=== PATIENT | male | born 1945 | race Caucasian/White ===

== ENCOUNTER 2016-05-31 13:00 | Inpatient (IN) | payer BC, MEDICARE ==
[~2016-05-31] VITALS: Ht 177.8 cm; Wt 75.5 kg
[~2016-05-31 13:00] MED LIST: ACET-1757 PO; AMLO10TA2 PO; ASPI-188 PO; ATOR10TA PO; CALC200T20 PO; DIPH25CA61 PO; FURO40TA6 PO; GLIP5TAB10 PO; INSU100I28 SQ-INSULIN; INSU100V8 SQ; LIDO5CRE14 TP; MYCO500T PO; MYCO500V PO; PANT40TA3 PO; PRED5TAB PO; ROSI4TAB3 PO; TACR0.5C4 PO; VALS1TAB7 PO; VALS320T2 PO
[2016-05-31 15:56] LABS: HEMOGLOBIN 10.1 g/dL (13.7-18.0)
[2016-05-31 16:08] LABS: ASPARTATE AMINO TRANSFERASE 9 U/L (15-37); BLOOD UREA NITROGEN 63 mg/dL (7-18)
[2016-05-31] MEDS: DIPHENHYDRAMINE 50 MG CAPSULE PO PRN (16:52)
[2016-05-31] MEDS ORDERED: CALCIUM GLUCONATE 4.6 MEQ in SODIUM CHLORIDE 0.9% 50 ML IV ONE (17:00)
[2016-05-31] MEDS ORDERED: LIDOCAINE/PRILOCAINE CRM W/TEG 5GM TP SCH (17:00)
[2016-05-31] MEDS ORDERED: CALCIUM GLUCONATE 4.6 MEQ/10 ML IV ONE (17:00)
[2016-05-31] MEDS ORDERED: ACETAMINOPHEN 650 MG SUPP PR PRN (17:00)
[2016-05-31] MEDS ORDERED: ACETAMINOPHEN 325 MG TABLET PO PRN (17:00)
[2016-05-31] MEDS ORDERED: DIPHENHYDRAMINE 50 MG CAPSULE PO PRN (17:00)
[2016-05-31] MEDS ORDERED: ALBUMIN HUMAN 5% IV ONE (17:00)
[2016-05-31] MEDS: SODIUM CHLORIDE FLUSH 10ML SYR IVF SCH (20:52)
[2016-05-31] MEDS: ATORVASTATIN 10 MG TABLET PO SCH (20:53)
[2016-05-31] MEDS: TACROLIMUS 0.5 MG CAPSULE PO SCH (20:53)
[2016-05-31] MEDS: PANTOPROZOLE 40MG TABLET PO SCH (20:53)
[2016-05-31 21:13] VITALS: BP 138/75
[2016-05-31] MEDS: INSULIN REGULAR 100 UNITS/ML, 3ML VIAL SQ-INSULIN SCH (23:34)
[2016-06-01 03:27] VITALS: BP 129/76
[2016-06-01] MEDS: ASPIRIN 81 MG TABLET EC PO SCH (05:24)
[2016-06-01 07:11] VITALS: BP 111/60
[2016-06-01] MEDS ORDERED: CALCIUM GLUCONATE 4.6 MEQ/10 ML IV ONE (08:00)
[2016-06-01] MEDS ORDERED: ALBUMIN HUMAN 5% IV ONE (08:00)
[2016-06-01] MEDS: TACROLIMUS 0.5 MG CAPSULE PO SCH ×2 (08:09→20:21)
[2016-06-01] MEDS: CALCIUM CITRATE 950 MG TABLET PO SCH (08:10)
[2016-06-01] MEDS: VALSARTAN 320 MG TABLET PO SCH (08:11)
[2016-06-01] MEDS: FUROSEMIDE 40 MG TABLET PO SCH (08:11)
[2016-06-01] MEDS: PANTOPROZOLE 40MG TABLET PO SCH ×2 (08:12→20:21)
[2016-06-01] MEDS: AMLODIPINE 5 MG TABLET PO SCH (08:12)
[2016-06-01] MEDS: SODIUM CHLORIDE FLUSH 10ML SYR IVF SCH ×2 (08:17→20:21)
[2016-06-01] MEDS: AVANDIA HOMEMEDPO SCH (08:17)
[2016-06-01] MEDS: INSULIN REGULAR 100 UNITS/ML, 3ML VIAL SQ-INSULIN SCH ×4 (08:50→20:34)
[2016-06-01 09:14] LABS: HEMOGLOBIN 10.3 g/dL (13.7-18.0)
[2016-06-01] MEDS: DIPHENHYDRAMINE 50 MG CAPSULE PO PRN (09:21)
[2016-06-01 09:33] LABS: PATH.CAST-FLAG NOT PRESENT; SPERM-FLAG NOT PRESENT; SRC-FLAG NOT PRESENT; XTAL-FLAG NOT PRESENT; YLC-FLAG NOT PRESENT
[2016-06-01] MEDS: INSULIN DETEMIR 100 UNITS/ML, PEN SQ-INSULIN SCH (10:13)
[2016-06-01 10:22] LABS: BLOOD UREA NITROGEN 58 mg/dL (7-18)
[2016-06-01 10:29] LABS: ASPARTATE AMINO TRANSFERASE < 3 U/L (15-37)
[2016-06-01 13:16] VITALS: BP 121/69
[2016-06-01 19:44] VITALS: BP 133/72
[2016-06-01] MEDS: ATORVASTATIN 10 MG TABLET PO SCH (20:21)
[2016-06-02 02:59] VITALS: BP 144/75
[2016-06-02] MEDS: ASPIRIN 81 MG TABLET EC PO SCH (06:06)
[2016-06-02] MEDS: INSULIN REGULAR 100 UNITS/ML, 3ML VIAL SQ-INSULIN SCH ×2 (07:00→11:00)
[2016-06-02 07:40] VITALS: BP 136/79
[2016-06-02] MEDS: TACROLIMUS 0.5 MG CAPSULE PO SCH (08:56)
[2016-06-02] MEDS: PANTOPROZOLE 40MG TABLET PO SCH (08:56)
[2016-06-02] MEDS: CALCIUM CITRATE 950 MG TABLET PO SCH (08:56)
[2016-06-02] MEDS: INSULIN DETEMIR 100 UNITS/ML, PEN SQ-INSULIN SCH (08:57)
[2016-06-02] MEDS: AVANDIA HOMEMEDPO SCH (08:57)
[2016-06-02] MEDS: SODIUM CHLORIDE FLUSH 10ML SYR IVF SCH (08:57)
[2016-06-02] MEDS: AMLODIPINE 5 MG TABLET PO SCH (09:00)
[2016-06-02 09:49] LABS: ASPARTATE AMINO TRANSFERASE 4 U/L (15-37); BLOOD UREA NITROGEN 48 mg/dL (7-18)
[2016-06-02] MEDS: DIPHENHYDRAMINE 50 MG CAPSULE PO PRN (10:21)
[2016-06-02] MEDS ORDERED: ALBUMIN HUMAN 5%, 25G/500ML IV SCH (12:00)
[2016-06-02] MEDS ORDERED: CALCIUM GLUCONATE 4.6 MEQ/10 ML IV SCH (12:00)
[2016-06-02] MEDS: FUROSEMIDE 40 MG TABLET PO SCH (14:40)
[2016-06-02] MEDS: VALSARTAN 320 MG TABLET PO SCH (14:40)
[2016-06-02 14:42] VITALS: BP 150/63
[2016-06-02 15:08] VITALS: BP 130/78
[2016-06-02 16:34] LABS: PATH.CAST-FLAG NOT PRESENT; SPERM-FLAG NOT PRESENT; SRC-FLAG NOT PRESENT; XTAL-FLAG NOT PRESENT; YLC-FLAG NOT PRESENT
== END 2016-06-02 16:17 | disposition home or self-care (01) | DRG 699 ==
LOC: 4EST 14:35 → 4WST 06-01 22:31
PROVIDERS: ADMIT Internal Medicine Nephrology; ATTEND Internal Medicine Nephrology
PROC: 6A551Z3 Pheresis of Plasma, Multiple (ICD-10-PCS; principal; 2016-05-31)
PROC: 0T9B70Z Drainage of Bladder with Drainage Device, Via Natural or Artificial Opening (ICD-10-PCS; 2016-06-01)
DX: T86.19 Other complication of kidney transplant (principal); N25.81 Secondary hyperparathyroidism of renal origin; N04.9 Nephrotic syndrome with unspecified morphologic changes; D50.9 Iron deficiency anemia, unspecified; D63.1 Anemia in chronic kidney disease; E11.22 Type 2 diabetes mellitus with diabetic chronic kidney disease; K21.9 Gastro-esophageal reflux disease without esophagitis; N18.9 Chronic kidney disease, unspecified; N26.9 Renal sclerosis, unspecified; Z94.0 Kidney transplant status; Z79.899 Other long term (current) drug therapy; Z79.84 Long term (current) use of oral hypoglycemic drugs; Z79.4 Long term (current) use of insulin; Z87.19 Personal history of other diseases of the digestive system
CPT/HCPCS: 36415; 36514; 80053; 81001; 82330; 82570; 82728; 82947; 82962; 83540; 83550; 83735; 84100; 84156; 85025; J1815; J7507; P9045; J0610; J7512; J7517

== ENCOUNTER 2016-06-29 08:00 | Inpatient (IN) | payer BC, MEDICARE ==
[~2016-06-29] VITALS: Ht 177.8 cm; Wt 70.7 kg
[2016-06-29 15:08] VITALS: BP 125/70
[2016-06-29] MEDS ORDERED: ACETAMINOPHEN 650 MG SUPP PR PRN (16:00)
[2016-06-29] MEDS ORDERED: LIDOCAINE/PRILOCAINE CRM W/TEG 5GM TP SCH (16:00)
[2016-06-29] MEDS ORDERED: ACETAMINOPHEN 325 MG TABLET PO PRN (16:00)
[2016-06-29 16:16] LABS: ASPARTATE AMINO TRANSFERASE 12 U/L (15-37); BLOOD UREA NITROGEN 75 mg/dL (7-18)
[2016-06-29] MEDS ORDERED: ALBUMIN HUMAN 5% 500 ML IV ONE (16:30)
[2016-06-29] MEDS ORDERED: CALCIUM GLUCONATE 4.6 MEQ/10 ML IV ONE (17:00)
[2016-06-29] MEDS ORDERED: ALBUMIN HUMAN 5% IV ONE (17:00)
[2016-06-29] MEDS: DIPHENHYDRAMINE 50 MG CAPSULE PO PRN (17:26)
[2016-06-29] MEDS: INSULIN REGULAR 100 UNITS/ML, 3ML VIAL SQ-INSULIN SCH (17:37)
[2016-06-29 18:51] LABS: PATH.CAST-FLAG NOT PRESENT; SPERM-FLAG NOT PRESENT; SRC-FLAG NOT PRESENT; XTAL-FLAG NOT PRESENT; YLC-FLAG NOT PRESENT
[2016-06-29] MEDS ORDERED: SODIUM POLYSTYRENE SULFONATE ORAL SUSP PO STA (19:23)
[2016-06-29 20:15] VITALS: BP 147/79
[2016-06-29] MEDS: PANTOPROZOLE 40MG TABLET PO SCH (21:58)
[2016-06-29] MEDS: TACROLIMUS 0.5 MG CAPSULE PO SCH (21:58)
[2016-06-29] MEDS: ATORVASTATIN 10 MG TABLET PO SCH (21:58)
[2016-06-29] MEDS: FUROSEMIDE 40 MG TABLET PO SCH (21:59)
[2016-06-30 00:16] VITALS: BP 130/74
[2016-06-30] MEDS: INSULIN REGULAR 100 UNITS/ML, 3ML VIAL SQ-INSULIN SCH ×5 (01:36→20:58)
[2016-06-30] MEDS: ASPIRIN 81 MG TABLET EC PO SCH (05:16)
[2016-06-30 07:12] VITALS: BP 135/81
[2016-06-30] MEDS: CALCIUM CITRATE 950 MG TABLET PO SCH (08:43)
[2016-06-30] MEDS: FUROSEMIDE 40 MG TABLET PO SCH ×2 (08:43→17:19)
[2016-06-30] MEDS: AVANDIA HOMEMEDPO SCH (08:43)
[2016-06-30] MEDS: PANTOPROZOLE 40MG TABLET PO SCH ×2 (08:44→20:57)
[2016-06-30] MEDS: VALSARTAN 320 MG TABLET PO SCH (08:44)
[2016-06-30] MEDS: TACROLIMUS 0.5 MG CAPSULE PO SCH ×2 (08:44→20:57)
[2016-06-30] MEDS: AMLODIPINE 5 MG TABLET PO SCH (08:44)
[2016-06-30] MEDS: INSULIN DETEMIR 100 UNITS/ML, PEN SQ-INSULIN SCH (08:45)
[2016-06-30] MEDS ORDERED: INSULIN DETEMIR 100 UNITS/ML, PEN SQ-INSULIN SCH (09:00)
[2016-06-30] MEDS ORDERED: ALBUMIN HUMAN 5% IV ONE (09:30)
[2016-06-30] MEDS ORDERED: CALCIUM GLUCONATE 4.6 MEQ/10 ML IV ONE (09:30)
[2016-06-30] MEDS: DIPHENHYDRAMINE 50 MG CAPSULE PO PRN (09:52)
[2016-06-30 10:23] LABS: ASPARTATE AMINO TRANSFERASE 13 U/L (15-37); BLOOD UREA NITROGEN 62 mg/dL (7-18)
[2016-06-30 14:42] VITALS: BP 115/66
[2016-06-30 19:56] VITALS: BP 128/75
[2016-06-30] MEDS: ATORVASTATIN 10 MG TABLET PO SCH (20:56)
[2016-07-01 02:34] VITALS: BP 110/64
[2016-07-01 05:33] LABS: BLOOD UREA NITROGEN 57 mg/dL (7-18)
[2016-07-01 05:38] LABS: ASPARTATE AMINO TRANSFERASE 5 U/L (15-37)
[2016-07-01] MEDS: INSULIN REGULAR 100 UNITS/ML, 3ML VIAL SQ-INSULIN SCH ×2 (07:00→12:27)
[2016-07-01] MEDS: DIPHENHYDRAMINE 50 MG CAPSULE PO PRN (07:58)
[2016-07-01] MEDS: FUROSEMIDE 40 MG TABLET PO SCH (08:01)
[2016-07-01] MEDS: ASPIRIN 81 MG TABLET EC PO SCH (08:01)
[2016-07-01] MEDS: AVANDIA HOMEMEDPO SCH (08:01)
[2016-07-01] MEDS: PANTOPROZOLE 40MG TABLET PO SCH (08:01)
[2016-07-01] MEDS: VALSARTAN 320 MG TABLET PO SCH (08:02)
[2016-07-01] MEDS: AMLODIPINE 5 MG TABLET PO SCH (08:02)
[2016-07-01] MEDS: CALCIUM CITRATE 950 MG TABLET PO SCH (08:03)
[2016-07-01] MEDS: TACROLIMUS 0.5 MG CAPSULE PO SCH (08:03)
[2016-07-01 08:52] LABS: PATH.CAST-FLAG NOT PRESENT; SPERM-FLAG NOT PRESENT; SRC-FLAG NOT PRESENT; XTAL-FLAG NOT PRESENT; YLC-FLAG NOT PRESENT
[2016-07-01] MEDS: INSULIN DETEMIR 100 UNITS/ML, PEN SQ-INSULIN SCH (12:27)
== END 2016-07-01 13:52 | disposition home or self-care (01) | DRG 699 ==
LOC: 4EST 14:18
PROVIDERS: ADMIT Internal Medicine Nephrology; ATTEND Internal Medicine Nephrology
PROC: 6A551Z3 Pheresis of Plasma, Multiple (ICD-10-PCS; principal; 2016-06-29)
DX: T86.19 Other complication of kidney transplant (principal); N25.81 Secondary hyperparathyroidism of renal origin; E46 Unspecified protein-calorie malnutrition; N04.9 Nephrotic syndrome with unspecified morphologic changes; N18.3 Chronic kidney disease, stage 3 (moderate); N26.9 Renal sclerosis, unspecified; K21.9 Gastro-esophageal reflux disease without esophagitis; D63.1 Anemia in chronic kidney disease; E11.22 Type 2 diabetes mellitus with diabetic chronic kidney disease; T45.1X5A Adverse effect of antineoplastic and immunosuppressive drugs, initial encounter; Y83.0 Surgical operation with transplant of whole organ as the cause of abnormal reaction of the patient, or of later complication, without mention of misadventure at the time of the procedure; Z79.84 Long term (current) use of oral hypoglycemic drugs; Z94.0 Kidney transplant status; Z86.73 Personal history of transient ischemic attack (TIA), and cerebral infarction without residual deficits; Z79.4 Long term (current) use of insulin; Z83.3 Family history of diabetes mellitus; Z87.19 Personal history of other diseases of the digestive system; Z68.22 Body mass index [BMI] 22.0-22.9, adult; Z79.899 Other long term (current) drug therapy; Z90.49 Acquired absence of other specified parts of digestive tract
CPT/HCPCS: 36415; 36514; 80053; 81001; 82330; 82570; 82947; 82962; 83735; 84100; 84132; 84156; 85025; J1815; J7507; P9045; J0610; J7512; J7517

== ENCOUNTER 2016-09-05 11:15 | Inpatient (IN) | payer BC, MEDICARE ==
[~2016-09-05] VITALS: Ht 177.8 cm; Wt 65.7 kg
[2016-09-05 13:27] VITALS: BP 126/81
[2016-09-05 13:53] LABS: ASPARTATE AMINO TRANSFERASE 10 U/L (15-37); BLOOD UREA NITROGEN 84 mg/dL (7-18)
[2016-09-05 14:00] VITALS: BP 126/81
[2016-09-05] MEDS ORDERED: ACETAMINOPHEN 325 MG TABLET PO PRN (14:00)
[2016-09-05] MEDS ORDERED: LIDOCAINE/PRILOCAINE CRM W/TEG 5GM TP SCH (14:00)
[2016-09-05] MEDS ORDERED: ALBUMIN HUMAN 5% 2,500 ML IV ONE (14:00)
[2016-09-05] MEDS ORDERED: ACETAMINOPHEN 650 MG SUPP PR PRN (14:00)
[2016-09-05] MEDS: DIPHENHYDRAMINE 50 MG CAPSULE PO PRN (14:53)
[2016-09-05] MEDS: CALCIUM GLUCONATE 4.6 MEQ/10 ML IV PRN (15:54)
[2016-09-05] MEDS ORDERED: ALBUMIN HUMAN 5% IV ONE (20:30)
[2016-09-05 21:09] VITALS: BP 122/72
[2016-09-05] MEDS: TACROLIMUS 0.5 MG CAPSULE PO SCH (21:14)
[2016-09-05] MEDS: PANTOPROZOLE 40MG TABLET PO SCH (21:14)
[2016-09-05] MEDS: ATORVASTATIN 10 MG TABLET PO SCH (21:14)
[2016-09-05] MEDS: SODIUM CHLORIDE FLUSH 10ML SYR IVF SCH (21:14)
[2016-09-06 00:40] LABS: PATH.CAST-FLAG NOT PRESENT; SPERM-FLAG NOT PRESENT; SRC-FLAG NOT PRESENT; XTAL-FLAG NOT PRESENT; YLC-FLAG NOT PRESENT
[2016-09-06 03:44] VITALS: BP 154/83
[2016-09-06] MEDS: ASPIRIN 81 MG TABLET EC PO SCH (06:16)
[2016-09-06 06:35] VITALS: BP 154/78
[2016-09-06] MEDS: TACROLIMUS 0.5 MG CAPSULE PO SCH ×2 (08:29→21:07)
[2016-09-06] MEDS: AMLODIPINE 5 MG TABLET PO SCH (08:29)
[2016-09-06] MEDS: CALCIUM CITRATE 950 MG TABLET PO SCH (08:29)
[2016-09-06] MEDS: VALSARTAN 320 MG TABLET PO SCH (08:29)
[2016-09-06] MEDS: AVANDIA HOMEMEDPO SCH (08:30)
[2016-09-06] MEDS: SODIUM CHLORIDE FLUSH 10ML SYR IVF SCH (08:30)
[2016-09-06] MEDS: PANTOPROZOLE 40MG TABLET PO SCH ×2 (08:30→21:07)
[2016-09-06] MEDS ORDERED: INSULIN DETEMIR 100 UNITS/ML, PEN SQ-INSULIN SCH (09:00)
[2016-09-06] MEDS ORDERED: INSULIN ASPART 100 UNITS/ML, PEN SQ-INSULIN ONE (09:00)
[2016-09-06 09:12] LABS: ASPARTATE AMINO TRANSFERASE 5 U/L (15-37); BLOOD UREA NITROGEN 68 mg/dL (7-18)
[2016-09-06] MEDS ORDERED: ALBUMIN HUMAN 5% IV ONE ×2 (09:30→15:30)
[2016-09-06] MEDS: CALCIUM GLUCONATE 4.6 MEQ/10 ML IV PRN ×2 (10:00→15:05)
[2016-09-06] MEDS: INSULIN ASPART 100 UNITS/ML, PEN SQ-INSULIN SCH ×3 (12:18→21:08)
[2016-09-06 12:45] LABS: PATH.CAST-FLAG NOT PRESENT; SPERM-FLAG NOT PRESENT; SRC-FLAG NOT PRESENT; XTAL-FLAG NOT PRESENT; YLC-FLAG NOT PRESENT
[2016-09-06 15:51] VITALS: BP 131/70
[2016-09-06 20:33] VITALS: BP 146/79
[2016-09-06] MEDS: ATORVASTATIN 10 MG TABLET PO SCH (21:07)
[2016-09-07 02:25] VITALS: BP 113/70
[2016-09-07] MEDS: ASPIRIN 81 MG TABLET EC PO SCH (06:31)
[2016-09-07 06:59] VITALS: BP 122/57
[2016-09-07] MEDS: INSULIN ASPART 100 UNITS/ML, PEN SQ-INSULIN SCH ×2 (07:00→12:15)
[2016-09-07 07:15] VITALS: BP 125/76
[2016-09-07 08:15] LABS: ASPARTATE AMINO TRANSFERASE 5 U/L (15-37); BLOOD UREA NITROGEN 57 mg/dL (7-18)
[2016-09-07] MEDS: TACROLIMUS 0.5 MG CAPSULE PO SCH (08:41)
[2016-09-07] MEDS: PANTOPROZOLE 40MG TABLET PO SCH (08:41)
[2016-09-07] MEDS: DIPHENHYDRAMINE 50 MG CAPSULE PO PRN (08:41)
[2016-09-07] MEDS: AVANDIA HOMEMEDPO SCH (08:42)
[2016-09-07] MEDS: AMLODIPINE 5 MG TABLET PO SCH (08:42)
[2016-09-07] MEDS: CALCIUM CITRATE 950 MG TABLET PO SCH (08:42)
[2016-09-07] MEDS: VALSARTAN 320 MG TABLET PO SCH (08:42)
[2016-09-07] MEDS ORDERED: INSULIN DETEMIR 100 UNITS/ML, PEN SQ-INSULIN SCH (09:00)
[2016-09-07] MEDS ORDERED: ALBUMIN HUMAN 5%, 25G/500ML IV ONE (09:30)
[2016-09-07] MEDS ORDERED: CALCIUM GLUCONATE 4.6 MEQ/10 ML IV ONE (09:30)
== END 2016-09-07 14:12 | disposition home or self-care (01) | DRG 698 ==
LOC: 4WST 12:15
PROVIDERS: ADMIT Internal Medicine Nephrology; ATTEND Internal Medicine Nephrology
PROC: 6A551Z3 Pheresis of Plasma, Multiple (ICD-10-PCS; principal; 2016-09-05)
DX: T86.19 Other complication of kidney transplant (principal); N18.6 End stage renal disease; I12.0 Hypertensive chronic kidney disease with stage 5 chronic kidney disease or end stage renal disease; I25.10 Atherosclerotic heart disease of native coronary artery without angina pectoris; E78.5 Hyperlipidemia, unspecified; K21.9 Gastro-esophageal reflux disease without esophagitis; D63.1 Anemia in chronic kidney disease; E11.22 Type 2 diabetes mellitus with diabetic chronic kidney disease; E11.65 Type 2 diabetes mellitus with hyperglycemia; Z99.2 Dependence on renal dialysis; Z98.61 Coronary angioplasty status; Z79.82 Long term (current) use of aspirin; Z79.84 Long term (current) use of oral hypoglycemic drugs; Z79.4 Long term (current) use of insulin; Z79.899 Other long term (current) drug therapy; Z82.49 Family history of ischemic heart disease and other diseases of the circulatory system; Z83.3 Family history of diabetes mellitus; Z94.0 Kidney transplant status; Z86.73 Personal history of transient ischemic attack (TIA), and cerebral infarction without residual deficits
CPT/HCPCS: 36415; 36514; 80053; 81001; 82330; 82570; 82962; 83735; 84100; 84156; 85025; J7507; P9045; J0610; J1815; J7512; J7517

== ENCOUNTER 2016-10-03 08:00 | Inpatient (IN) | payer BC, MEDICARE ==
[~2016-10-03] VITALS: Ht 177.8 cm; Wt 66.5 kg
[2016-10-03 14:07] VITALS: BP 125/66
[2016-10-03 14:07] LABS: HEMATOCRIT 31.6 % (39.2-51.8); HEMOGLOBIN 10.4 g/dL (13.7-18.0); WHITE BLOOD COUNT 5.2 x10^3/uL (3.4-10)
[2016-10-03 14:18] LABS: ASPARTATE AMINO TRANSFERASE 8 U/L (15-37); BLOOD UREA NITROGEN 95 mg/dL (7-18)
[2016-10-03] MEDS ORDERED: LIDOCAINE/PRILOCAINE CRM W/TEG 5GM TP SCH (15:00)
[2016-10-03] MEDS ORDERED: ACETAMINOPHEN 650 MG SUPP PR PRN (15:00)
[2016-10-03] MEDS ORDERED: ACETAMINOPHEN 325 MG TABLET PO PRN (15:00)
[2016-10-03] MEDS: INSULIN REGULAR 100 UNITS/ML, 3ML VIAL SQ-INSULIN SCH ×2 (15:26→21:30)
[2016-10-03 15:59] LABS: PATH.CAST-FLAG NOT PRESENT; SPERM-FLAG NOT PRESENT; SRC-FLAG NOT PRESENT; XTAL-FLAG NOT PRESENT; YLC-FLAG NOT PRESENT
[2016-10-03] MEDS: DIPHENHYDRAMINE 50 MG CAPSULE PO PRN (17:16)
[2016-10-03] MEDS: ALBUMIN HUMAN 5%, 25G/500ML IV SCH (19:15)
[2016-10-03] MEDS: CALCIUM GLUCONATE 4.6 MEQ/10 ML IV SCH (19:15)
[2016-10-03 20:00] VITALS: BP 139/74
[2016-10-03] MEDS: SODIUM CHLORIDE FLUSH 10ML SYR IVF SCH (21:00)
[2016-10-03] MEDS: ATORVASTATIN 10 MG TABLET PO SCH (21:30)
[2016-10-03] MEDS: PANTOPROZOLE 40MG TABLET PO SCH (21:30)
[2016-10-03] MEDS: TACROLIMUS 0.5 MG CAPSULE PO SCH (21:30)
[2016-10-04] MEDS: ASPIRIN 81 MG TABLET EC PO SCH (05:46)
[2016-10-04 07:47] LABS: HEMATOCRIT 32.3 % (39.2-51.8); HEMOGLOBIN 10.8 g/dL (13.7-18.0); WHITE BLOOD COUNT 5.3 x10^3/uL (3.4-10)
[2016-10-04 07:58] LABS: BLOOD UREA NITROGEN 78 mg/dL (7-18)
[2016-10-04 08:01] LABS: ASPARTATE AMINO TRANSFERASE 5 U/L (15-37)
[2016-10-04 08:22] VITALS: BP 160/79
[2016-10-04] MEDS: SODIUM CHLORIDE FLUSH 10ML SYR IVF SCH ×2 (09:00→21:00)
[2016-10-04] MEDS: AVANDIA HOMEMEDPO SCH (09:00)
[2016-10-04] MEDS: INSULIN DETEMIR 100 UNITS/ML, PEN SQ-INSULIN SCH (09:10)
[2016-10-04] MEDS: INSULIN REGULAR 100 UNITS/ML, 3ML VIAL SQ-INSULIN SCH ×4 (09:10→21:04)
[2016-10-04] MEDS: FUROSEMIDE 20 MG TABLET PO SCH (09:11)
[2016-10-04] MEDS: AMLODIPINE 5 MG TABLET PO SCH (09:11)
[2016-10-04] MEDS: TACROLIMUS 0.5 MG CAPSULE PO SCH ×2 (09:11→21:03)
[2016-10-04] MEDS: CALCIUM CITRATE 950 MG TABLET PO SCH (09:11)
[2016-10-04] MEDS: PANTOPROZOLE 40MG TABLET PO SCH ×2 (09:11→21:02)
[2016-10-04] MEDS: VALSARTAN 320 MG TABLET PO SCH (09:12)
[2016-10-04] MEDS: DIPHENHYDRAMINE 50 MG CAPSULE PO PRN (09:16)
[2016-10-04 09:53] LABS: PATH.CAST-FLAG NOT PRESENT; SPERM-FLAG NOT PRESENT; SRC-FLAG NOT PRESENT; XTAL-FLAG NOT PRESENT; YLC-FLAG NOT PRESENT
[2016-10-04] MEDS: ALBUMIN HUMAN 5%, 25G/500ML IV SCH (11:27)
[2016-10-04] MEDS: CALCIUM GLUCONATE 4.6 MEQ/10 ML IV SCH (11:28)
[2016-10-04 17:24] VITALS: BP 124/71
[2016-10-04 19:14] VITALS: BP 127/72
[2016-10-04] MEDS: ATORVASTATIN 10 MG TABLET PO SCH (21:02)
[2016-10-05] MEDS ORDERED: INSULIN REGULAR 100 UNITS/ML, 3ML VIAL SQ-INSULIN ONE (01:30)
[2016-10-05] MEDS: ASPIRIN 81 MG TABLET EC PO SCH (05:48)
[2016-10-05 06:27] LABS: BLOOD UREA NITROGEN 69 mg/dL (7-18); HEMOGLOBIN 11.5 g/dL (13.7-18.0); WHITE BLOOD COUNT 6.4 x10^3/uL (3.4-10)
[2016-10-05 06:29] LABS: ASPARTATE AMINO TRANSFERASE 5 U/L (15-37)
[2016-10-05 07:32] VITALS: BP 124/77
[2016-10-05] MEDS: AVANDIA HOMEMEDPO SCH (07:57)
[2016-10-05] MEDS: INSULIN DETEMIR 100 UNITS/ML, PEN SQ-INSULIN SCH (08:11)
[2016-10-05] MEDS: INSULIN REGULAR 100 UNITS/ML, 3ML VIAL SQ-INSULIN SCH ×2 (08:11→12:26)
[2016-10-05] MEDS: CALCIUM CITRATE 950 MG TABLET PO SCH (08:12)
[2016-10-05] MEDS: TACROLIMUS 0.5 MG CAPSULE PO SCH (08:12)
[2016-10-05] MEDS: SODIUM CHLORIDE FLUSH 10ML SYR IVF SCH (08:12)
[2016-10-05] MEDS: FUROSEMIDE 20 MG TABLET PO SCH (08:12)
[2016-10-05] MEDS: PANTOPROZOLE 40MG TABLET PO SCH (08:12)
[2016-10-05] MEDS: AMLODIPINE 5 MG TABLET PO SCH (08:12)
[2016-10-05] MEDS: VALSARTAN 320 MG TABLET PO SCH (08:12)
[2016-10-05] MEDS: DIPHENHYDRAMINE 50 MG CAPSULE PO PRN (08:50)
[2016-10-05 09:07] LABS: PATH.CAST-FLAG NOT PRESENT; SPERM-FLAG NOT PRESENT; SRC-FLAG NOT PRESENT; XTAL-FLAG NOT PRESENT; YLC-FLAG NOT PRESENT
[2016-10-05] MEDS: CALCIUM GLUCONATE 4.6 MEQ/10 ML IV SCH (09:32)
[2016-10-05] MEDS: ALBUMIN HUMAN 5%, 25G/500ML IV SCH (09:32)
[2016-10-05 14:42] VITALS: BP 122/72
== END 2016-10-05 15:30 | disposition home or self-care (01) | DRG 682 ==
LOC: 4WST 13:31
PROVIDERS: ADMIT Internal Medicine Nephrology; ATTEND Internal Medicine Nephrology
PROC: 5A1D60Z (ICD-10-PCS; principal; 2016-10-03)
DX: I12.0 Hypertensive chronic kidney disease with stage 5 chronic kidney disease or end stage renal disease (principal); N18.6 End stage renal disease; E11.22 Type 2 diabetes mellitus with diabetic chronic kidney disease; N25.81 Secondary hyperparathyroidism of renal origin; Z94.0 Kidney transplant status; D63.1 Anemia in chronic kidney disease; E78.5 Hyperlipidemia, unspecified; K21.9 Gastro-esophageal reflux disease without esophagitis; Z79.4 Long term (current) use of insulin; Z86.73 Personal history of transient ischemic attack (TIA), and cerebral infarction without residual deficits; Z87.19 Personal history of other diseases of the digestive system; Z87.441 Personal history of nephrotic syndrome; Z99.2 Dependence on renal dialysis; Z79.82 Long term (current) use of aspirin; Z79.899 Other long term (current) drug therapy; Z90.49 Acquired absence of other specified parts of digestive tract
CPT/HCPCS: 36415; 80053; 81001; 82330; 82570; 82962; 83735; 84100; 84156; 85025; J1815; J7507; P9045; J0610; J7512; J7517

== ENCOUNTER 2016-11-02 14:37 | Inpatient (IN) | payer BC, MEDICARE ==
[~2016-11-02] VITALS: Ht 177.8 cm; Wt 66.3 kg
[~2016-11-02 14:37] MED LIST changes: -ASPI-188 PO; +ASPI-682 PO
[2016-11-02 15:47] LABS: HEMATOCRIT 31.6 % (39.2-51.8); HEMOGLOBIN 10.4 g/dL (13.7-18.0); WHITE BLOOD COUNT 4.8 x10^3/uL (3.4-10)
[2016-11-02 15:58] LABS: ASPARTATE AMINO TRANSFERASE 11 U/L (15-37); BLOOD UREA NITROGEN 77 mg/dL (7-18)
[2016-11-02] MEDS: INSULIN REGULAR 100 UNITS/ML, 3ML VIAL SQ-INSULIN SCH ×2 (16:00→22:29)
[2016-11-02] MEDS ORDERED: ACETAMINOPHEN 325 MG TABLET PO PRN (16:00)
[2016-11-02] MEDS ORDERED: ACETAMINOPHEN 650 MG SUPP PR PRN (16:00)
[2016-11-02] MEDS ORDERED: LIDOCAINE/PRILOCAINE CRM W/TEG 5GM TP SCH (16:00)
[2016-11-02] MEDS ORDERED: ALBUMIN HUMAN 5% 2,500 ML IV ONE ×2 (16:00→17:30)
[2016-11-02] MEDS: PLEASE ENTER HEIGHT AND WEIGHT MC SCH ×2 (16:00→22:29)
[2016-11-02 16:20] VITALS: BP 152/77
[2016-11-02] MEDS: DIPHENHYDRAMINE 50 MG CAPSULE PO PRN ×2 (16:34→21:40)
[2016-11-02 20:49] VITALS: BP 150/74
[2016-11-02] MEDS: SODIUM CHLORIDE FLUSH 10ML SYR IVF SCH (20:49)
[2016-11-02] MEDS: PANTOPROZOLE 40MG TABLET PO SCH (21:40)
[2016-11-02] MEDS: TACROLIMUS 0.5 MG CAPSULE PO SCH (21:40)
[2016-11-02] MEDS: FUROSEMIDE 40 MG TABLET PO SCH (21:41)
[2016-11-02] MEDS: ATORVASTATIN 10 MG TABLET PO SCH (21:41)
[2016-11-03 03:22] VITALS: BP 148/77
[2016-11-03 06:35] VITALS: BP 137/68
[2016-11-03] MEDS: ASPIRIN 81 MG TABLET EC PO SCH (07:25)
[2016-11-03] MEDS: FUROSEMIDE 40 MG TABLET PO SCH ×2 (07:26→20:28)
[2016-11-03] MEDS: VALSARTAN 320 MG TABLET PO SCH (07:26)
[2016-11-03] MEDS: CALCIUM CITRATE 950 MG TABLET PO SCH (07:26)
[2016-11-03] MEDS: TACROLIMUS 0.5 MG CAPSULE PO SCH ×2 (07:27→20:32)
[2016-11-03] MEDS: AMLODIPINE 5 MG TABLET PO SCH (07:27)
[2016-11-03] MEDS: PANTOPROZOLE 40MG TABLET PO SCH ×2 (07:27→20:28)
[2016-11-03] MEDS: AVANDIA HOMEMEDPO SCH (07:29)
[2016-11-03] MEDS: PLEASE ENTER HEIGHT AND WEIGHT MC SCH (07:29)
[2016-11-03] MEDS: SODIUM CHLORIDE FLUSH 10ML SYR IVF SCH ×2 (07:30→20:32)
[2016-11-03] MEDS: INSULIN REGULAR 100 UNITS/ML, 3ML VIAL SQ-INSULIN SCH ×4 (08:26→20:29)
[2016-11-03 08:50] LABS: PATH.CAST-FLAG NOT PRESENT; SPERM-FLAG NOT PRESENT; SRC-FLAG NOT PRESENT; XTAL-FLAG NOT PRESENT; YLC-FLAG NOT PRESENT
[2016-11-03] MEDS ORDERED: INSULIN DETEMIR 100 UNITS/ML, PEN SQ-INSULIN SCH (09:00)
[2016-11-03 09:17] LABS: BLOOD UREA NITROGEN 63 mg/dL (7-18)
[2016-11-03 09:20] LABS: ASPARTATE AMINO TRANSFERASE 5 U/L (15-37)
[2016-11-03 09:24] LABS: HEMATOCRIT 35.3 % (39.2-51.8); HEMOGLOBIN 11.8 g/dL (13.7-18.0); WHITE BLOOD COUNT 4.6 x10^3/uL (3.4-10)
[2016-11-03] MEDS ORDERED: DIPHENHYDRAMINE 25 MG CAPSULE ONE (09:36)
[2016-11-03] MEDS: DIPHENHYDRAMINE 50 MG CAPSULE PO PRN (09:38)
[2016-11-03] MEDS: INSULIN DETEMIR 100 UNITS/ML, PEN SQ-INSULIN SCH (10:00)
[2016-11-03] MEDS: ALBUMIN HUMAN 5% IV SCH (10:31)
[2016-11-03] MEDS: CALCIUM GLUCONATE 4.6 MEQ/10 ML IV PRN (10:33)
[2016-11-03 14:22] VITALS: BP 120/69
[2016-11-03 19:33] VITALS: BP 138/75
[2016-11-03] MEDS: ATORVASTATIN 10 MG TABLET PO SCH (20:28)
[2016-11-04 00:07] VITALS: BP 116/76
[2016-11-04 02:30] VITALS: BP 108/67
[2016-11-04] MEDS: ASPIRIN 81 MG TABLET EC PO SCH (05:11)
[2016-11-04 05:52] LABS: ASPARTATE AMINO TRANSFERASE 7 U/L (15-37); BLOOD UREA NITROGEN 57 mg/dL (7-18); HEMATOCRIT 34.2 % (39.2-51.8); HEMOGLOBIN 11.3 g/dL (13.7-18.0); WHITE BLOOD COUNT 6.7 x10^3/uL (3.4-10)
[2016-11-04 08:00] VITALS: BP 118/76
[2016-11-04] MEDS: INSULIN DETEMIR 100 UNITS/ML, PEN SQ-INSULIN SCH (08:17)
[2016-11-04] MEDS: INSULIN REGULAR 100 UNITS/ML, 3ML VIAL SQ-INSULIN SCH ×2 (08:17→11:50)
[2016-11-04] MEDS: CALCIUM CITRATE 950 MG TABLET PO SCH (08:17)
[2016-11-04] MEDS: FUROSEMIDE 40 MG TABLET PO SCH (08:17)
[2016-11-04] MEDS: DIPHENHYDRAMINE 50 MG CAPSULE PO PRN (08:17)
[2016-11-04] MEDS: TACROLIMUS 0.5 MG CAPSULE PO SCH (08:17)
[2016-11-04] MEDS: PANTOPROZOLE 40MG TABLET PO SCH (08:17)
[2016-11-04] MEDS: AVANDIA HOMEMEDPO SCH (08:18)
[2016-11-04] MEDS: SODIUM CHLORIDE FLUSH 10ML SYR IVF SCH (08:18)
[2016-11-04] MEDS ORDERED: INSULIN DETEMIR 100 UNITS/ML, PEN SQ-INSULIN SCH (09:00)
[2016-11-04] MEDS: ALBUMIN HUMAN 5% IV SCH (09:23)
[2016-11-04] MEDS: CALCIUM GLUCONATE 4.6 MEQ/10 ML IV PRN (09:31)
[2016-11-04] MEDS: AMLODIPINE 5 MG TABLET PO SCH (11:50)
[2016-11-04] MEDS: VALSARTAN 320 MG TABLET PO SCH (11:50)
[2016-11-04 12:07] LABS: PATH.CAST-FLAG NOT PRESENT; SPERM-FLAG NOT PRESENT; SRC-FLAG NOT PRESENT; XTAL-FLAG NOT PRESENT; YLC-FLAG NOT PRESENT
[2016-11-07 13:06] LABS: UR ALBUMIN 92.9 % (.); UR ALPHA-1-GLOBULIN 0.4 % (.); UR ALPHA-2-GLOBULIN 0.7 % (.); UR BETA GLOBULIN 3.1 % (.); UR GAMMA GLOBULIN 2.9 % (.); UR M-SPIKE % Not Observed % (Not Observed)
== END 2016-11-04 14:27 | disposition home or self-care (01) | DRG 699 ==
LOC: 4WST 14:39
PROVIDERS: ADMIT Internal Medicine Nephrology; ATTEND Internal Medicine Nephrology
PROC: 5A1D60Z (ICD-10-PCS; principal; 2016-11-02)
DX: T86.19 Other complication of kidney transplant (principal); N25.81 Secondary hyperparathyroidism of renal origin; E11.22 Type 2 diabetes mellitus with diabetic chronic kidney disease; D63.1 Anemia in chronic kidney disease; K21.9 Gastro-esophageal reflux disease without esophagitis; I12.9 Hypertensive chronic kidney disease with stage 1 through stage 4 chronic kidney disease, or unspecified chronic kidney disease; N18.9 Chronic kidney disease, unspecified; E78.5 Hyperlipidemia, unspecified; Y83.0 Surgical operation with transplant of whole organ as the cause of abnormal reaction of the patient, or of later complication, without mention of misadventure at the time of the procedure; Z79.4 Long term (current) use of insulin; Z87.19 Personal history of other diseases of the digestive system; Z86.73 Personal history of transient ischemic attack (TIA), and cerebral infarction without residual deficits; Z87.441 Personal history of nephrotic syndrome; Z90.49 Acquired absence of other specified parts of digestive tract
CPT/HCPCS: 36415; 36514; 80053; 81001; 82330; 82570; 82962; 83735; 84100; 84156; 84166; 85025; J1815; J7507; P9045; J0610; J7512; J7517

== ENCOUNTER 2016-12-05 09:00 | Inpatient (IN) | payer BC, MEDICARE ==
[~2016-12-05] VITALS: Ht 177.8 cm; Wt 69.5 kg
[2016-12-05 14:12] LABS: HEMATOCRIT 32.4 % (39.2-51.8); HEMOGLOBIN 10.8 g/dL (13.7-18.0); WHITE BLOOD COUNT 6.8 x10^3/uL (3.4-10)
[2016-12-05 14:21] VITALS: BP 105/64
[2016-12-05 14:28] LABS: ASPARTATE AMINO TRANSFERASE 13 U/L (15-37); BLOOD UREA NITROGEN 51 mg/dL (7-18)
[2016-12-05] MEDS ORDERED: ACETAMINOPHEN 325 MG TABLET PO PRN (15:30)
[2016-12-05] MEDS ORDERED: ACETAMINOPHEN 650 MG SUPP PR PRN (15:30)
[2016-12-05] MEDS ORDERED: LIDOCAINE/PRILOCAINE CRM W/TEG 5GM TP SCH (15:30)
[2016-12-05] MEDS ORDERED: CALCIUM GLUCONATE 4.6 MEQ/10 ML IV ONE (16:00)
[2016-12-05] MEDS ORDERED: ALBUMIN HUMAN 5% IV ONE (16:00)
[2016-12-05] MEDS: INSULIN REGULAR 100 UNITS/ML, 3ML VIAL SQ-INSULIN SCH ×2 (17:13→22:17)
[2016-12-05] MEDS ORDERED: DIPHENHYDRAMINE 25 MG CAPSULE ONE (18:07)
[2016-12-05] MEDS: DIPHENHYDRAMINE 50 MG CAPSULE PO PRN (18:12)
[2016-12-05 20:40] VITALS: BP 118/74
[2016-12-05] MEDS: SODIUM CHLORIDE FLUSH 10ML SYR IVF SCH (21:00)
[2016-12-05] MEDS: PANTOPROZOLE 40MG TABLET PO SCH (22:07)
[2016-12-05] MEDS: ATORVASTATIN 10 MG TABLET PO SCH (22:07)
[2016-12-05] MEDS: TACROLIMUS 0.5 MG CAPSULE PO SCH (22:07)
[2016-12-05] MEDS: FUROSEMIDE 40 MG TABLET PO SCH (22:07)
[2016-12-06 00:54] LABS: PATH.CAST-FLAG NOT PRESENT; SPERM-FLAG NOT PRESENT; SRC-FLAG NOT PRESENT; XTAL-FLAG NOT PRESENT; YLC-FLAG NOT PRESENT
[2016-12-06 04:15] VITALS: BP 125/76
[2016-12-06] MEDS: ASPIRIN 81 MG TABLET EC PO SCH (05:48)
[2016-12-06 06:28] LABS: HEMATOCRIT 30.1 % (39.2-51.8); HEMOGLOBIN 9.9 g/dL (13.7-18.0)
[2016-12-06 06:34] LABS: BLOOD UREA NITROGEN 52 mg/dL (7-18)
[2016-12-06 06:38] LABS: ASPARTATE AMINO TRANSFERASE < 3 U/L (15-37)
[2016-12-06] MEDS: AVANDIA HOMEMEDPO SCH (07:37)
[2016-12-06] MEDS: CALCIUM CITRATE 950 MG TABLET PO SCH (07:37)
[2016-12-06] MEDS: INSULIN DETEMIR 100 UNITS/ML, PEN SQ-INSULIN SCH (07:37)
[2016-12-06] MEDS: SODIUM CHLORIDE FLUSH 10ML SYR IVF SCH ×2 (07:38→20:13)
[2016-12-06] MEDS: FUROSEMIDE 40 MG TABLET PO SCH ×2 (07:38→20:58)
[2016-12-06] MEDS: VALSARTAN 320 MG TABLET PO SCH (07:38)
[2016-12-06] MEDS: TACROLIMUS 0.5 MG CAPSULE PO SCH ×2 (07:38→20:58)
[2016-12-06] MEDS: PANTOPROZOLE 40MG TABLET PO SCH ×2 (07:38→20:58)
[2016-12-06] MEDS: AMLODIPINE 5 MG TABLET PO SCH (07:38)
[2016-12-06] MEDS: INSULIN REGULAR 100 UNITS/ML, 3ML VIAL SQ-INSULIN SCH ×4 (07:44→20:59)
[2016-12-06 07:45] VITALS: BP 136/75
[2016-12-06] MEDS ORDERED: ALBUMIN HUMAN 5% IV ONE (09:00)
[2016-12-06] MEDS ORDERED: CALCIUM GLUCONATE 4.6 MEQ/10 ML IV ONE (09:00)
[2016-12-06 09:40] LABS: PATH.CAST-FLAG NOT PRESENT; SPERM-FLAG NOT PRESENT; SRC-FLAG NOT PRESENT; XTAL-FLAG NOT PRESENT; YLC-FLAG NOT PRESENT
[2016-12-06 15:31] VITALS: BP 130/69
[2016-12-06 20:57] VITALS: BP 123/75
[2016-12-06] MEDS: ATORVASTATIN 10 MG TABLET PO SCH (20:58)
[2016-12-07 02:00] VITALS: BP 129/78
[2016-12-07] MEDS: ASPIRIN 81 MG TABLET EC PO SCH (06:25)
[2016-12-07 06:48] LABS: HEMATOCRIT 32.7 % (39.2-51.8); HEMOGLOBIN 10.8 g/dL (13.7-18.0); WHITE BLOOD COUNT 5.1 x10^3/uL (3.4-10)
[2016-12-07 06:52] LABS: BLOOD UREA NITROGEN 50 mg/dL (7-18)
[2016-12-07 06:55] LABS: ASPARTATE AMINO TRANSFERASE < 3 U/L (15-37)
[2016-12-07] MEDS: INSULIN REGULAR 100 UNITS/ML, 3ML VIAL SQ-INSULIN SCH ×2 (07:00→11:00)
[2016-12-07 08:14] VITALS: BP 133/76
[2016-12-07] MEDS: INSULIN DETEMIR 100 UNITS/ML, PEN SQ-INSULIN SCH (08:38)
[2016-12-07] MEDS: AMLODIPINE 5 MG TABLET PO SCH (08:39)
[2016-12-07] MEDS: PANTOPROZOLE 40MG TABLET PO SCH (08:39)
[2016-12-07] MEDS: CALCIUM CITRATE 950 MG TABLET PO SCH (08:39)
[2016-12-07] MEDS: VALSARTAN 320 MG TABLET PO SCH (08:39)
[2016-12-07] MEDS: FUROSEMIDE 40 MG TABLET PO SCH (08:39)
[2016-12-07] MEDS: TACROLIMUS 0.5 MG CAPSULE PO SCH (08:39)
[2016-12-07] MEDS: AVANDIA HOMEMEDPO SCH (08:40)
[2016-12-07] MEDS: SODIUM CHLORIDE FLUSH 10ML SYR IVF SCH (08:40)
[2016-12-07] MEDS: DIPHENHYDRAMINE 50 MG CAPSULE PO PRN (08:46)
[2016-12-07] MEDS ORDERED: CALCIUM GLUCONATE 4.6 MEQ/10 ML IV ONE (10:00)
[2016-12-07] MEDS ORDERED: ALBUMIN HUMAN 5% IV ONE (10:00)
== END 2016-12-07 15:37 | disposition home or self-care (01) | DRG 682 ==
LOC: 4EST 12:06 → 4WST 13:05
PROVIDERS: ADMIT Internal Medicine Nephrology; ATTEND Internal Medicine Nephrology
DX: I12.0 Hypertensive chronic kidney disease with stage 5 chronic kidney disease or end stage renal disease (principal); N18.6 End stage renal disease; E11.22 Type 2 diabetes mellitus with diabetic chronic kidney disease; Z94.0 Kidney transplant status; N25.81 Secondary hyperparathyroidism of renal origin; D63.1 Anemia in chronic kidney disease; E78.5 Hyperlipidemia, unspecified; K21.9 Gastro-esophageal reflux disease without esophagitis; Z79.4 Long term (current) use of insulin; Z86.73 Personal history of transient ischemic attack (TIA), and cerebral infarction without residual deficits; Z87.19 Personal history of other diseases of the digestive system; Z99.2 Dependence on renal dialysis
CPT/HCPCS: 36415; 36514; 80053; 81001; 82330; 82570; 82962; 83735; 84100; 84156; 85025; J1815; J7507; P9045; J0610; J7512; J7517

== ENCOUNTER 2017-01-03 08:00 | Inpatient (IN) | payer BC, MEDICARE ==
[~2017-01-03] VITALS: Ht 177.8 cm; Wt 70.6 kg
[2017-01-03] MEDS ORDERED: ALBUMIN HUMAN 5%, 25G/500ML IV SCH (13:00)
[2017-01-03 16:53] VITALS: BP 136/71
[2017-01-03] MEDS: PLEASE ENTER HEIGHT AND WEIGHT MC SCH ×2 (17:00→22:45)
[2017-01-03] MEDS ORDERED: LIDOCAINE/PRILOCAINE CRM W/TEG 5GM TP SCH (17:30)
[2017-01-03] MEDS ORDERED: ACETAMINOPHEN 325 MG TABLET PO PRN (17:30)
[2017-01-03] MEDS ORDERED: ACETAMINOPHEN 650 MG SUPP PR PRN (17:30)
[2017-01-03 17:34] LABS: HEMATOCRIT 29.5 % (39.2-51.8); HEMOGLOBIN 9.7 g/dL (13.7-18.0); WHITE BLOOD COUNT 4.7 x10^3/uL (3.4-10)
[2017-01-03] MEDS ORDERED: DIPHENHYDRAMINE 25 MG CAPSULE ONE (17:48)
[2017-01-03] MEDS: DIPHENHYDRAMINE 50 MG CAPSULE PO PRN (17:50)
[2017-01-03 17:58] LABS: BLOOD UREA NITROGEN 78 mg/dL (7-18)
[2017-01-03 17:59] LABS: ASPARTATE AMINO TRANSFERASE 10 U/L (15-37)
[2017-01-03] MEDS ORDERED: CALCIUM GLUCONATE 4.6 MEQ/10 ML IV SCH (18:00)
[2017-01-03] MEDS: TACROLIMUS 0.5 MG CAPSULE PO SCH (20:42)
[2017-01-03] MEDS: FUROSEMIDE 40 MG TABLET PO SCH (20:42)
[2017-01-03] MEDS: SODIUM CHLORIDE FLUSH 10ML SYR IVF SCH (20:43)
[2017-01-03] MEDS: ATORVASTATIN 10 MG TABLET PO SCH (20:43)
[2017-01-03] MEDS: PANTOPROZOLE 40MG TABLET PO SCH (20:43)
[2017-01-03 20:45] VITALS: BP 138/80
[2017-01-03] MEDS: INSULIN REGULAR 100 UNITS/ML, 3ML VIAL SQ-INSULIN SCH (21:27)
[2017-01-04 02:30] VITALS: BP 135/73
[2017-01-04 05:49] LABS: PATH.CAST-FLAG NOT PRESENT; SPERM-FLAG NOT PRESENT; SRC-FLAG NOT PRESENT; XTAL-FLAG NOT PRESENT; YLC-FLAG NOT PRESENT
[2017-01-04] MEDS: ASPIRIN 81 MG TABLET EC PO SCH (06:05)
[2017-01-04] MEDS: INSULIN REGULAR 100 UNITS/ML, 3ML VIAL SQ-INSULIN SCH ×4 (07:00→20:18)
[2017-01-04 07:31] VITALS: BP 149/80
[2017-01-04] MEDS: AMLODIPINE 5 MG TABLET PO SCH ×2 (08:18→20:17)
[2017-01-04] MEDS: FUROSEMIDE 40 MG TABLET PO SCH ×2 (08:18→20:17)
[2017-01-04] MEDS: VALSARTAN 320 MG TABLET PO SCH ×2 (08:18→08:50)
[2017-01-04] MEDS: CALCIUM CITRATE 950 MG TABLET PO SCH (08:18)
[2017-01-04] MEDS: PANTOPROZOLE 40MG TABLET PO SCH ×2 (08:19→20:17)
[2017-01-04] MEDS: TACROLIMUS 0.5 MG CAPSULE PO SCH ×2 (08:19→20:17)
[2017-01-04 08:56] LABS: PATH.CAST-FLAG NOT PRESENT; SPERM-FLAG NOT PRESENT; SRC-FLAG NOT PRESENT; XTAL-FLAG NOT PRESENT; YLC-FLAG NOT PRESENT
[2017-01-04] MEDS: SODIUM CHLORIDE FLUSH 10ML SYR IVF SCH ×2 (09:00→20:20)
[2017-01-04] MEDS: AVANDIA HOMEMEDPO SCH (09:00)
[2017-01-04] MEDS: PLEASE ENTER HEIGHT AND WEIGHT MC SCH (09:00)
[2017-01-04 09:41] LABS: HEMATOCRIT 33.3 % (39.2-51.8); HEMOGLOBIN 10.9 g/dL (13.7-18.0); WHITE BLOOD COUNT 4.2 x10^3/uL (3.4-10)
[2017-01-04 09:53] LABS: ASPARTATE AMINO TRANSFERASE 3 U/L (15-37); BLOOD UREA NITROGEN 71 mg/dL (7-18)
[2017-01-04] MEDS: DIPHENHYDRAMINE 50 MG CAPSULE PO PRN (11:42)
[2017-01-04] MEDS: INSULIN DETEMIR 100 UNITS/ML, PEN SQ-INSULIN SCH (11:50)
[2017-01-04] MEDS: CALCIUM GLUCONATE 4.6 MEQ/10 ML IV SCH (15:06)
[2017-01-04] MEDS: ALBUMIN HUMAN 5%, 25G/500ML IV SCH (15:06)
[2017-01-04 15:20] VITALS: BP 136/74
[2017-01-04 20:00] VITALS: BP 127/70
[2017-01-04] MEDS: ATORVASTATIN 10 MG TABLET PO SCH (20:17)
[2017-01-05 02:00] VITALS: BP 136/76
[2017-01-05 05:14] LABS: PATH.CAST-FLAG NOT PRESENT; SPERM-FLAG NOT PRESENT; SRC-FLAG NOT PRESENT; XTAL-FLAG NOT PRESENT; YLC-FLAG NOT PRESENT
[2017-01-05 05:17] LABS: HEMATOCRIT 34.3 % (39.2-51.8); HEMOGLOBIN 11.2 g/dL (13.7-18.0); WHITE BLOOD COUNT 5.4 x10^3/uL (3.4-10)
[2017-01-05 05:25] LABS: BLOOD UREA NITROGEN 77 mg/dL (7-18)
[2017-01-05] MEDS: ASPIRIN 81 MG TABLET EC PO SCH (05:32)
[2017-01-05 05:34] LABS: ASPARTATE AMINO TRANSFERASE < 3 U/L (15-37)
[2017-01-05] MEDS: INSULIN REGULAR 100 UNITS/ML, 3ML VIAL SQ-INSULIN SCH ×2 (07:00→11:00)
[2017-01-05 07:41] VITALS: BP 135/76
[2017-01-05] MEDS: AVANDIA HOMEMEDPO SCH (07:44)
[2017-01-05] MEDS: SODIUM CHLORIDE FLUSH 10ML SYR IVF SCH (07:45)
[2017-01-05] MEDS: TACROLIMUS 0.5 MG CAPSULE PO SCH (07:49)
[2017-01-05] MEDS: PANTOPROZOLE 40MG TABLET PO SCH (07:49)
[2017-01-05] MEDS: CALCIUM CITRATE 950 MG TABLET PO SCH (07:49)
[2017-01-05] MEDS: FUROSEMIDE 40 MG TABLET PO SCH (07:49)
[2017-01-05] MEDS: INSULIN DETEMIR 100 UNITS/ML, PEN SQ-INSULIN SCH (07:54)
[2017-01-05] MEDS: AMLODIPINE 5 MG TABLET PO SCH (09:00)
[2017-01-05] MEDS: VALSARTAN 320 MG TABLET PO SCH (09:00)
[2017-01-05] MEDS: DIPHENHYDRAMINE 50 MG CAPSULE PO PRN (09:05)
[2017-01-05] MEDS: ALBUMIN HUMAN 5%, 25G/500ML IV SCH (11:29)
[2017-01-05] MEDS: CALCIUM GLUCONATE 4.6 MEQ/10 ML IV SCH (11:29)
== END 2017-01-05 13:44 | disposition home or self-care (01) | DRG 698 ==
LOC: ORIP 16:24 → 4WST 16:29
PROVIDERS: ADMIT Internal Medicine Nephrology; ATTEND Internal Medicine Nephrology
PROC: 5A1D70Z Performance of Urinary Filtration, Intermittent, Less than 6 Hours Per Day (ICD-10-PCS; principal; 2017-01-03)
PROC: 5A1D70Z Performance of Urinary Filtration, Intermittent, Less than 6 Hours Per Day (ICD-10-PCS; 2017-01-04)
PROC: 5A1D70Z Performance of Urinary Filtration, Intermittent, Less than 6 Hours Per Day (ICD-10-PCS; 2017-01-05)
DX: T86.19 Other complication of kidney transplant (principal); N18.6 End stage renal disease; E11.22 Type 2 diabetes mellitus with diabetic chronic kidney disease; I12.0 Hypertensive chronic kidney disease with stage 5 chronic kidney disease or end stage renal disease; N25.81 Secondary hyperparathyroidism of renal origin; D63.1 Anemia in chronic kidney disease; E78.5 Hyperlipidemia, unspecified; K21.9 Gastro-esophageal reflux disease without esophagitis; Y83.0 Surgical operation with transplant of whole organ as the cause of abnormal reaction of the patient, or of later complication, without mention of misadventure at the time of the procedure; Z79.4 Long term (current) use of insulin; Z86.73 Personal history of transient ischemic attack (TIA), and cerebral infarction without residual deficits; Z87.19 Personal history of other diseases of the digestive system; Z87.441 Personal history of nephrotic syndrome; Z99.2 Dependence on renal dialysis
CPT/HCPCS: 36415; 36514; 80053; 81001; 82330; 82570; 82962; 83735; 84100; 84156; 85025; J1815; J7507; P9045; J0610; J7512; J7517

== ENCOUNTER 2017-02-02 09:00 | Inpatient (IN) | payer BC, MEDICARE ==
[~2017-02-02] VITALS: Ht 177.8 cm; Wt 69.1 kg
[2017-02-02 17:12] LABS: HEMATOCRIT 34.3 % (39.2-51.8); HEMOGLOBIN 11.3 g/dL (13.7-18.0); WHITE BLOOD COUNT 5.9 x10^3/uL (3.4-10)
[2017-02-02 17:23] LABS: ASPARTATE AMINO TRANSFERASE 15 U/L (15-37); BLOOD UREA NITROGEN 78 mg/dL (7-18)
[2017-02-02 17:43] VITALS: BP 134/72
[2017-02-02] MEDS ORDERED: DIPHENHYDRAMINE 50 MG CAPSULE PO PRN ×3 (18:15→22:00)
[2017-02-02] MEDS ORDERED: DIPHENHYDRAMINE 25 MG CAPSULE ONE (18:26)
[2017-02-02] MEDS ORDERED: ALBUMIN HUMAN 5%, 25G/500ML IV ONE (18:30)
[2017-02-02] MEDS ORDERED: CALCIUM GLUCONATE 4.6 MEQ/10 ML IV ONE (18:30)
[2017-02-02 20:02] VITALS: BP 129/70
[2017-02-02] MEDS: ATORVASTATIN 10 MG TABLET PO SCH (21:00)
[2017-02-02] MEDS ORDERED: ACETAMINOPHEN 650 MG SUPP PR PRN (22:00)
[2017-02-02] MEDS ORDERED: LIDOCAINE/PRILOCAINE CRM W/TEG 5GM TP SCH (22:00)
[2017-02-02] MEDS ORDERED: ACETAMINOPHEN 325 MG TABLET PO PRN (22:00)
[2017-02-02] MEDS: TACROLIMUS 0.5 MG CAPSULE PO SCH (22:59)
[2017-02-02] MEDS: AMLODIPINE 5 MG TABLET PO SCH (22:59)
[2017-02-02] MEDS: PANTOPROZOLE 40MG TABLET PO SCH (22:59)
[2017-02-02] MEDS: INSULIN REGULAR 100 UNITS/ML, 3ML VIAL SQ-INSULIN SCH (23:01)
[2017-02-03 02:13] VITALS: BP 122/71
[2017-02-03 05:24] LABS: HEMATOCRIT 28.6 % (39.2-51.8); HEMOGLOBIN 9.5 g/dL (13.7-18.0); WHITE BLOOD COUNT 4.4 x10^3/uL (3.4-10)
[2017-02-03 05:43] LABS: ASPARTATE AMINO TRANSFERASE 4 U/L (15-37); BLOOD UREA NITROGEN 76 mg/dL (7-18)
[2017-02-03] MEDS: ASPIRIN 81 MG TABLET EC PO SCH (05:43)
[2017-02-03 06:49] LABS: PATH.CAST-FLAG NOT PRESENT; SPERM-FLAG NOT PRESENT; SRC-FLAG NOT PRESENT; XTAL-FLAG NOT PRESENT; YLC-FLAG NOT PRESENT
[2017-02-03] MEDS: INSULIN REGULAR 100 UNITS/ML, 3ML VIAL SQ-INSULIN SCH ×4 (07:00→22:35)
[2017-02-03] MEDS ORDERED: INSULIN REGULAR 100 UNITS/ML, 3ML VIAL SQ-INSULIN SCH (07:00)
[2017-02-03 07:03] VITALS: BP 130/63
[2017-02-03] MEDS ORDERED: INSULIN DETEMIR 100 UNITS/ML, PEN SQ-INSULIN SCH (09:00)
[2017-02-03] MEDS ORDERED: ALBUMIN HUMAN 5%, 25G/500ML IV ONE (09:00)
[2017-02-03] MEDS: AMLODIPINE 5 MG TABLET PO SCH (09:00)
[2017-02-03] MEDS: AVANDIA HOMEMEDPO SCH (09:00)
[2017-02-03] MEDS ORDERED: CALCIUM GLUCONATE 4.6 MEQ/10 ML IV ONE (09:00)
[2017-02-03] MEDS: TACROLIMUS 0.5 MG CAPSULE PO SCH ×2 (12:43→22:34)
[2017-02-03] MEDS: PANTOPROZOLE 40MG TABLET PO SCH ×2 (12:43→22:34)
[2017-02-03] MEDS: VALSARTAN 320 MG TABLET PO SCH (12:43)
[2017-02-03] MEDS: SODIUM CHLORIDE FLUSH 10ML SYR IVF SCH ×2 (12:44→21:00)
[2017-02-03] MEDS: CALCIUM CITRATE 950 MG TABLET PO SCH (13:00)
[2017-02-03 13:30] VITALS: BP 127/68
[2017-02-03 19:33] VITALS: BP 123/67
[2017-02-03] MEDS: ATORVASTATIN 10 MG TABLET PO SCH (22:34)
[2017-02-04] MEDS: ASPIRIN 81 MG TABLET EC PO SCH (05:45)
[2017-02-04 06:09] LABS: HEMATOCRIT 30.8 % (39.2-51.8); WHITE BLOOD COUNT 5.4 x10^3/uL (3.4-10)
[2017-02-04 06:09] LABS: PATH.CAST-FLAG NOT PRESENT; SPERM-FLAG NOT PRESENT; SRC-FLAG NOT PRESENT; XTAL-FLAG NOT PRESENT; YLC-FLAG NOT PRESENT
[2017-02-04 06:10] LABS: ASPARTATE AMINO TRANSFERASE 8 U/L (15-37); BLOOD UREA NITROGEN 65 mg/dL (7-18)
[2017-02-04] MEDS: INSULIN REGULAR 100 UNITS/ML, 3ML VIAL SQ-INSULIN SCH ×2 (07:00→11:00)
[2017-02-04] MEDS ORDERED: ALBUMIN HUMAN 5%, 25G/500ML IV ONE (08:00)
[2017-02-04] MEDS ORDERED: CALCIUM GLUCONATE 4.6 MEQ/10 ML IV ONE (08:00)
[2017-02-04] MEDS ORDERED: DIPHENHYDRAMINE 25 MG CAPSULE ONE (08:08)
[2017-02-04] MEDS: AVANDIA HOMEMEDPO SCH (09:00)
[2017-02-04] MEDS ORDERED: INSULIN DETEMIR 100 UNITS/ML, PEN SQ-INSULIN SCH (09:00)
[2017-02-04] MEDS: SODIUM CHLORIDE FLUSH 10ML SYR IVF SCH (09:00)
[2017-02-04] MEDS: VALSARTAN 320 MG TABLET PO SCH (11:43)
[2017-02-04] MEDS: CALCIUM CITRATE 950 MG TABLET PO SCH (11:43)
[2017-02-04] MEDS: AMLODIPINE 5 MG TABLET PO SCH (11:44)
[2017-02-04] MEDS: PANTOPROZOLE 40MG TABLET PO SCH (11:44)
[2017-02-04] MEDS: TACROLIMUS 0.5 MG CAPSULE PO SCH (11:44)
[2017-02-04 12:15] VITALS: BP 139/76
== END 2017-02-04 13:40 | disposition home or self-care (01) | DRG 698 ==
LOC: 4WST 16:46
PROVIDERS: ADMIT Internal Medicine Nephrology; ATTEND Internal Medicine Nephrology
PROC: 6A551Z3 Pheresis of Plasma, Multiple (ICD-10-PCS; principal; 2017-02-02)
DX: T86.19 Other complication of kidney transplant (principal); N18.6 End stage renal disease; E11.22 Type 2 diabetes mellitus with diabetic chronic kidney disease; I12.0 Hypertensive chronic kidney disease with stage 5 chronic kidney disease or end stage renal disease; N25.81 Secondary hyperparathyroidism of renal origin; N26.9 Renal sclerosis, unspecified; D63.1 Anemia in chronic kidney disease; E78.5 Hyperlipidemia, unspecified; K21.9 Gastro-esophageal reflux disease without esophagitis; Y83.0 Surgical operation with transplant of whole organ as the cause of abnormal reaction of the patient, or of later complication, without mention of misadventure at the time of the procedure; N28.9 Disorder of kidney and ureter, unspecified; I77.0 Arteriovenous fistula, acquired; Z79.4 Long term (current) use of insulin; Z86.73 Personal history of transient ischemic attack (TIA), and cerebral infarction without residual deficits; Z87.441 Personal history of nephrotic syndrome; Z99.2 Dependence on renal dialysis; Z94.0 Kidney transplant status
CPT/HCPCS: 36415; 36514; 80053; 81001; 82330; 82570; 82962; 83735; 84100; 84156; 85025; J1815; J7507; P9045; J0610; J7512; J7517

== ENCOUNTER 2017-03-10 08:36 | Inpatient (IN) | payer OTHER, MEDICARE ==
[~2017-03-10] VITALS: Ht 177.8 cm; Wt 74.2 kg
[2017-03-10 10:23] LABS: BASOPHILS # (AUTO) 0.01 x10^3/uL (0-0.1); BASOPHILS % (AUTO) 0 % (0-1); EOSINOPHILS # (AUTO) 0.05 x10^3/uL (0-0.4); EOSINOPHILS % (AUTO) 1 % (1-7); LYMPHOCYTES # (AUTO) 0.44 x10^3/uL (1-3.4); LYMPHOCYTES % (AUTO) 7 % (22-44); MD NO; MEAN CORPUSCULAR HEMOGLOBIN 27.5 pg (27.5-34.5); MEAN CORPUSCULAR HGB CONC 33.4 g/dL (33.2-36.2); MEAN CORPUSCULAR VOLUME 82.5 fL (81-97); MEAN PLATELET VOLUME 7.9 fL (7.4-10.4); MONOCYTES # (AUTO) 0.53 x10^3/uL (0.2-0.8); MONOCYTES % (AUTO) 9 % (2-9); NEUTROPHILS # (AUTO) 4.93 x10^3/uL (1.8-6.8); NEUTROPHILS % (AUTO) 83 % (42-75); PLATELET COUNT 209 x10^3/uL (130-400); RED BLOOD COUNT 4.24 x10^6/uL (4.38-5.82); RED CELL DISTRIBUTION WIDTH 14.4 % (9.4-14.8)
[2017-03-10 10:36] LABS: ANION GAP 8 mmol/L (5-15); CALCIUM 8.1 mg/dL (8.5-10.1); CHLORIDE 105 mmol/L (98-107)
[2017-03-10 10:41] LABS: ALANINE AMINOTRANSFERASE 17 U/L (12-78); ALKALINE PHOSPHATASE 70 U/L (45-117); BILIRUBIN,TOTAL 0.4 mg/dL (0.2-1.0); CREATININE 3.09 mg/dL (0.7-1.3); TOTAL PROTEIN 6.4 g/dL (6.4-8.2)
[2017-03-10] MEDS ORDERED: ACETAMINOPHEN 650 MG SUPP PR PRN (11:00)
[2017-03-10] MEDS ORDERED: ACETAMINOPHEN 325 MG TABLET PO PRN (11:00)
[2017-03-10] MEDS ORDERED: ALBUMIN HUMAN 5% IV ONE (11:00)
[2017-03-10] MEDS ORDERED: CALCIUM GLUCONATE 4.6 MEQ/10 ML IV ONE (11:00)
[2017-03-10] MEDS ORDERED: LIDOCAINE/PRILOCAINE CRM W/TEG 5GM TP SCH (11:00)
[2017-03-10] MEDS ORDERED: DIPHENHYDRAMINE 25 MG CAPSULE ONE (11:40)
[2017-03-10] MEDS: DIPHENHYDRAMINE 50 MG CAPSULE PO PRN (11:44)
[2017-03-10 12:01] LABS: CREATININE,URINE RANDOM 33.8 mg/dL
[2017-03-10] MEDS: INSULIN REGULAR 100 UNITS/ML, 3ML VIAL SQ-INSULIN SCH ×3 (12:30→20:57)
[2017-03-10 15:11] VITALS: BP 128/67
[2017-03-10 15:45] LABS: MICROSCOPIC AUTO
[2017-03-10 19:32] VITALS: BP 113/63
[2017-03-10] MEDS: TACROLIMUS 0.5 MG CAPSULE PO SCH (20:57)
[2017-03-10] MEDS: ATORVASTATIN 10 MG TABLET PO SCH (20:57)
[2017-03-10] MEDS: SODIUM CHLORIDE FLUSH 10ML SYR IVF SCH (20:57)
[2017-03-10] MEDS: PANTOPROZOLE 40MG TABLET PO SCH (20:57)
[2017-03-10] MEDS ORDERED: AMLODIPINE 5 MG TABLET ONE (21:10)
[2017-03-10] MEDS: AMLODIPINE 5 MG TABLET PO SCH (21:13)
[2017-03-11 02:00] VITALS: BP 123/75
[2017-03-11 05:16] LABS: ALANINE AMINOTRANSFERASE 12 U/L (12-78); ALBUMIN 3.7 g/dL (3.4-5.0); ANION GAP 10 mmol/L (5-15); CALCIUM 7.9 mg/dL (8.5-10.1); CHLORIDE 114 mmol/L (98-107); CREATININE 2.68 mg/dL (0.7-1.3)
[2017-03-11 05:19] LABS: ALKALINE PHOSPHATASE 27 U/L (45-117); BASOPHILS # (AUTO) 0.02 x10^3/uL (0-0.1); BASOPHILS % (AUTO) 0 % (0-1); BILIRUBIN,TOTAL 0.4 mg/dL (0.2-1.0); EOSINOPHILS # (AUTO) 0.08 x10^3/uL (0-0.4); EOSINOPHILS % (AUTO) 2 % (1-7); LYMPHOCYTES # (AUTO) 0.85 x10^3/uL (1-3.4); LYMPHOCYTES % (AUTO) 20 % (22-44); MD NO; MEAN CORPUSCULAR HEMOGLOBIN 27.9 pg (27.5-34.5); MEAN CORPUSCULAR HGB CONC 33.6 g/dL (33.2-36.2); MEAN CORPUSCULAR VOLUME 83.1 fL (81-97); MEAN PLATELET VOLUME 7.8 fL (7.4-10.4); MONOCYTES # (AUTO) 0.46 x10^3/uL (0.2-0.8); MONOCYTES % (AUTO) 11 % (2-9); NEUTROPHILS # (AUTO) 2.93 x10^3/uL (1.8-6.8); NEUTROPHILS % (AUTO) 68 % (42-75); PLATELET COUNT 176 x10^3/uL (130-400); RED BLOOD COUNT 3.99 x10^6/uL (4.38-5.82); RED CELL DISTRIBUTION WIDTH 14.5 % (9.4-14.8); TOTAL PROTEIN 5.1 g/dL (6.4-8.2)
[2017-03-11] MEDS: ASPIRIN 81 MG TABLET EC PO SCH (06:08)
[2017-03-11] MEDS: INSULIN REGULAR 100 UNITS/ML, 3ML VIAL SQ-INSULIN SCH ×4 (07:00→20:56)
[2017-03-11 07:07] VITALS: BP 154/78
[2017-03-11] MEDS ORDERED: VALSARTAN 320 MG TABLET ONE ×2 (07:41→07:43)
[2017-03-11] MEDS ORDERED: CALCIUM CITRATE 950 MG TABLET ONE (07:41)
[2017-03-11] MEDS: CALCIUM CITRATE 950 MG TABLET PO SCH (07:53)
[2017-03-11] MEDS: VALSARTAN 320 MG TABLET PO SCH (07:53)
[2017-03-11] MEDS: PANTOPROZOLE 40MG TABLET PO SCH ×2 (07:53→20:55)
[2017-03-11] MEDS: SODIUM CHLORIDE FLUSH 10ML SYR IVF SCH ×2 (07:53→21:00)
[2017-03-11] MEDS: TACROLIMUS 0.5 MG CAPSULE PO SCH ×2 (07:53→21:04)
[2017-03-11] MEDS: AVANDIA HOMEMEDPO SCH (07:55)
[2017-03-11] MEDS ORDERED: AMLODIPINE 5 MG TABLET PO SCH (09:00)
[2017-03-11 09:10] LABS: MICROSCOPIC AUTO
[2017-03-11] MEDS ORDERED: ALBUMIN HUMAN 5% IV ONE (10:00)
[2017-03-11] MEDS ORDERED: CALCIUM GLUCONATE 4.6 MEQ/10 ML IV ONE (10:00)
[2017-03-11] MEDS: INSULIN GLARGINE 100 UNITS/ML, PEN SQ-INSULIN SCH (10:36)
[2017-03-11 14:39] VITALS: BP 106/64
[2017-03-11 19:40] VITALS: BP 135/77
[2017-03-11] MEDS: AMLODIPINE 5 MG TABLET PO SCH (20:55)
[2017-03-11] MEDS: ATORVASTATIN 10 MG TABLET PO SCH (20:55)
[2017-03-12 01:44] VITALS: BP 152/77
[2017-03-12 05:01] LABS: BASOPHILS # (AUTO) 0.01 x10^3/uL (0-0.1); BASOPHILS % (AUTO) 0 % (0-1); EOSINOPHILS # (AUTO) 0.15 x10^3/uL (0-0.4); EOSINOPHILS % (AUTO) 3 % (1-7); LYMPHOCYTES # (AUTO) 0.72 x10^3/uL (1-3.4); LYMPHOCYTES % (AUTO) 14 % (22-44); MD NO; MEAN CORPUSCULAR HEMOGLOBIN 27.8 pg (27.5-34.5); MEAN CORPUSCULAR HGB CONC 33.4 g/dL (33.2-36.2); MEAN CORPUSCULAR VOLUME 83.4 fL (81-97); MEAN PLATELET VOLUME 7.7 fL (7.4-10.4); MONOCYTES # (AUTO) 0.57 x10^3/uL (0.2-0.8); MONOCYTES % (AUTO) 11 % (2-9); NEUTROPHILS # (AUTO) 3.76 x10^3/uL (1.8-6.8); NEUTROPHILS % (AUTO) 72 % (42-75); PLATELET COUNT 184 x10^3/uL (130-400); RED BLOOD COUNT 4.21 x10^6/uL (4.38-5.82); RED CELL DISTRIBUTION WIDTH 14.6 % (9.4-14.8)
[2017-03-12] MEDS: ASPIRIN 81 MG TABLET EC PO SCH (06:05)
[2017-03-12 07:03] VITALS: BP 146/58
[2017-03-12 08:04] LABS: MICROSCOPIC AUTO
[2017-03-12] MEDS: INSULIN REGULAR 100 UNITS/ML, 3ML VIAL SQ-INSULIN SCH ×2 (08:23→12:07)
[2017-03-12] MEDS: INSULIN GLARGINE 100 UNITS/ML, PEN SQ-INSULIN SCH (08:24)
[2017-03-12] MEDS: AVANDIA HOMEMEDPO SCH (08:25)
[2017-03-12] MEDS: SODIUM CHLORIDE FLUSH 10ML SYR IVF SCH (08:25)
[2017-03-12] MEDS: CALCIUM CITRATE 950 MG TABLET PO SCH (08:25)
[2017-03-12] MEDS: PANTOPROZOLE 40MG TABLET PO SCH (08:25)
[2017-03-12] MEDS: VALSARTAN 320 MG TABLET PO SCH (08:25)
[2017-03-12] MEDS: TACROLIMUS 0.5 MG CAPSULE PO SCH (08:25)
[2017-03-12] MEDS ORDERED: CALCIUM GLUCONATE 4.6 MEQ/10 ML IV ONE (10:30)
[2017-03-12] MEDS ORDERED: ALBUMIN HUMAN 5% IV ONE (10:30)
[2017-03-12] MEDS: DIPHENHYDRAMINE 50 MG CAPSULE PO PRN (10:37)
[2017-03-12 15:02] VITALS: BP 131/80
== END 2017-03-12 13:30 | disposition home or self-care (01) | DRG 682 ==
LOC: 4WST 08:36
PROVIDERS: ADMIT Internal Medicine Nephrology; ATTEND Internal Medicine Nephrology
DX: I12.0 Hypertensive chronic kidney disease with stage 5 chronic kidney disease or end stage renal disease (principal); N18.6 End stage renal disease; E11.22 Type 2 diabetes mellitus with diabetic chronic kidney disease; Z94.0 Kidney transplant status; N25.81 Secondary hyperparathyroidism of renal origin; D63.1 Anemia in chronic kidney disease; K21.9 Gastro-esophageal reflux disease without esophagitis; E78.5 Hyperlipidemia, unspecified; Z79.4 Long term (current) use of insulin; Z86.73 Personal history of transient ischemic attack (TIA), and cerebral infarction without residual deficits; Z87.19 Personal history of other diseases of the digestive system; Z87.441 Personal history of nephrotic syndrome; Z99.2 Dependence on renal dialysis; Z90.49 Acquired absence of other specified parts of digestive tract
CPT/HCPCS: 36415; 36514; 80053; 81001; 82330; 82570; 82962; 83735; 83970; 84100; 84156; 84166; 84311; 85025; J1815; J7507; P9045; J0610; J7512; J7517

== ENCOUNTER 2017-04-06 09:00 | Inpatient (IN) | payer OTHER, MEDICARE ==
[~2017-04-06] VITALS: Ht 175.3 cm; Wt 71.6 kg
[2017-04-06] MEDS ORDERED: PLEASE ENTER HEIGHT AND WEIGHT MC SCH (14:30)
[2017-04-06 15:18] LABS: BASOPHILS % (AUTO) 0 % (0-1); EOSINOPHILS % (AUTO) 0 % (1-7); LYMPHOCYTES # (AUTO) 0.34 x10^3/uL (1-3.4); LYMPHOCYTES % (AUTO) 7 % (22-44); MD NO; MEAN CORPUSCULAR HEMOGLOBIN 27.8 pg (27.5-34.5); MEAN CORPUSCULAR HGB CONC 33.8 g/dL (33.2-36.2); MEAN CORPUSCULAR VOLUME 82.2 fL (81-97); MEAN PLATELET VOLUME 8.1 fL (7.4-10.4); MONOCYTES # (AUTO) 0.19 x10^3/uL (0.2-0.8); MONOCYTES % (AUTO) 4 % (2-9); NEUTROPHILS # (AUTO) 4.09 x10^3/uL (1.8-6.8); NEUTROPHILS % (AUTO) 89 % (42-75); PLATELET COUNT 166 x10^3/uL (130-400); RED BLOOD COUNT 3.77 x10^6/uL (4.38-5.82); RED CELL DISTRIBUTION WIDTH 13.6 % (9.4-14.8)
[2017-04-06 15:28] LABS: ALANINE AMINOTRANSFERASE 15 U/L (12-78); ANION GAP 12 mmol/L (5-15); CHLORIDE 99 mmol/L (98-107)
[2017-04-06 15:30] LABS: ALKALINE PHOSPHATASE 62 U/L (45-117); BILIRUBIN,TOTAL 0.7 mg/dL (0.2-1.0); TOTAL PROTEIN 5.9 g/dL (6.4-8.2)
[2017-04-06 16:48] VITALS: BP 143/78
[2017-04-06] MEDS ORDERED: LIDOCAINE/PRILOCAINE CRM W/TEG 5GM TP SCH (17:00)
[2017-04-06] MEDS ORDERED: DIPHENHYDRAMINE 50 MG CAPSULE PO PRN (17:00)
[2017-04-06] MEDS ORDERED: CALCIUM GLUCONATE 4.6 MEQ/10 ML IV ONE (17:00)
[2017-04-06] MEDS ORDERED: ACETAMINOPHEN 650 MG SUPP PR PRN (17:00)
[2017-04-06] MEDS ORDERED: ACETAMINOPHEN 325 MG TABLET PO PRN (17:00)
[2017-04-06] MEDS ORDERED: ALBUMIN HUMAN 5% IV ONE (17:00)
[2017-04-06 18:41] LABS: MICROSCOPIC AUTO
[2017-04-06 20:50] LABS: CREATININE,URINE RANDOM 46.4 mg/dL
[2017-04-06] MEDS: TACROLIMUS 0.5 MG CAPSULE PO SCH (21:32)
[2017-04-06] MEDS: PANTOPROZOLE 40MG TABLET PO SCH (21:32)
[2017-04-06] MEDS: ATORVASTATIN 10 MG TABLET PO SCH (21:32)
[2017-04-06] MEDS: INSULIN REGULAR 100 UNITS/ML, 3ML VIAL SQ-INSULIN SCH (21:59)
[2017-04-07 08:11] VITALS: BP 125/68
[2017-04-07] MEDS: INSULIN REGULAR 100 UNITS/ML, 3ML VIAL SQ-INSULIN SCH ×4 (08:35→19:53)
[2017-04-07 08:46] LABS: BASOPHILS # (AUTO) 0.01 x10^3/uL (0-0.1); BASOPHILS % (AUTO) 0 % (0-1); EOSINOPHILS # (AUTO) 0.05 x10^3/uL (0-0.4); EOSINOPHILS % (AUTO) 1 % (1-7); LYMPHOCYTES # (AUTO) 0.73 x10^3/uL (1-3.4); LYMPHOCYTES % (AUTO) 18 % (22-44); MD NO; MEAN CORPUSCULAR HEMOGLOBIN 27.4 pg (27.5-34.5); MEAN CORPUSCULAR HGB CONC 33.2 g/dL (33.2-36.2); MEAN CORPUSCULAR VOLUME 82.6 fL (81-97); MEAN PLATELET VOLUME 8.2 fL (7.4-10.4); MONOCYTES # (AUTO) 0.44 x10^3/uL (0.2-0.8); MONOCYTES % (AUTO) 11 % (2-9); NEUTROPHILS # (AUTO) 2.73 x10^3/uL (1.8-6.8); NEUTROPHILS % (AUTO) 69 % (42-75); PLATELET COUNT 166 x10^3/uL (130-400); RED BLOOD COUNT 3.66 x10^6/uL (4.38-5.82); RED CELL DISTRIBUTION WIDTH 13.8 % (9.4-14.8)
[2017-04-07 08:51] VITALS: BP 122/71
[2017-04-07 08:54] LABS: ALANINE AMINOTRANSFERASE 10 U/L (12-78); ALBUMIN 3.8 g/dL (3.4-5.0); ANION GAP 6 mmol/L (5-15); CHLORIDE 112 mmol/L (98-107); CREATININE 2.92 mg/dL (0.7-1.3)
[2017-04-07] MEDS: TACROLIMUS 0.5 MG CAPSULE PO SCH ×2 (08:54→19:53)
[2017-04-07] MEDS: PANTOPROZOLE 40MG TABLET PO SCH ×2 (08:54→19:53)
[2017-04-07] MEDS: CALCIUM CITRATE 950 MG TABLET PO SCH (08:54)
[2017-04-07] MEDS: ASPIRIN 81 MG TABLET EC PO SCH (08:54)
[2017-04-07] MEDS: INSULIN GLARGINE 100 UNITS/ML, PEN SQ-INSULIN SCH (08:55)
[2017-04-07 08:56] LABS: ALKALINE PHOSPHATASE 23 U/L (45-117); BILIRUBIN,TOTAL 0.4 mg/dL (0.2-1.0); TOTAL PROTEIN 4.9 g/dL (6.4-8.2)
[2017-04-07] MEDS: AMLODIPINE 5 MG TABLET PO SCH (09:00)
[2017-04-07] MEDS: VALSARTAN 320 MG TABLET PO SCH (09:00)
[2017-04-07] MEDS: AVANDIA HOMEMEDPO SCH (09:00)
[2017-04-07] MEDS ORDERED: INSULIN GLARGINE 100 UNITS/ML, PEN SQ-INSULIN SCH (09:00)
[2017-04-07 12:29] LABS: MICROSCOPIC AUTO
[2017-04-07] MEDS ORDERED: CALCIUM GLUCONATE 4.6 MEQ/10 ML IV ONE (14:00)
[2017-04-07] MEDS ORDERED: ALBUMIN HUMAN 5% IV ONE (14:00)
[2017-04-07 15:45] VITALS: BP 106/57
[2017-04-07] MEDS: ATORVASTATIN 10 MG TABLET PO SCH (19:52)
[2017-04-07 19:59] VITALS: BP 123/73
[2017-04-08] MEDS: INSULIN REGULAR 100 UNITS/ML, 3ML VIAL SQ-INSULIN SCH ×2 (07:00→11:00)
[2017-04-08 07:45] LABS: BASOPHILS # (AUTO) 0.02 x10^3/uL (0-0.1); BASOPHILS % (AUTO) 0 % (0-1); EOSINOPHILS # (AUTO) 0.07 x10^3/uL (0-0.4); EOSINOPHILS % (AUTO) 2 % (1-7); LYMPHOCYTES # (AUTO) 0.66 x10^3/uL (1-3.4); LYMPHOCYTES % (AUTO) 16 % (22-44); MD NO; MEAN CORPUSCULAR HEMOGLOBIN 27.7 pg (27.5-34.5); MEAN CORPUSCULAR HGB CONC 33.5 g/dL (33.2-36.2); MEAN CORPUSCULAR VOLUME 82.6 fL (81-97); MEAN PLATELET VOLUME 8.1 fL (7.4-10.4); MONOCYTES # (AUTO) 0.44 x10^3/uL (0.2-0.8); MONOCYTES % (AUTO) 10 % (2-9); NEUTROPHILS # (AUTO) 3.11 x10^3/uL (1.8-6.8); NEUTROPHILS % (AUTO) 72 % (42-75); PLATELET COUNT 172 x10^3/uL (130-400); RED BLOOD COUNT 3.79 x10^6/uL (4.38-5.82); RED CELL DISTRIBUTION WIDTH 13.9 % (9.4-14.8)
[2017-04-08 07:58] LABS: ALBUMIN 4.3 g/dL (3.4-5.0); ANION GAP 8 mmol/L (5-15); CALCIUM 8.6 mg/dL (8.5-10.1); CHLORIDE 115 mmol/L (98-107)
[2017-04-08 08:00] VITALS: BP 119/71
[2017-04-08 08:02] LABS: ALANINE AMINOTRANSFERASE 8 U/L (12-78); ALKALINE PHOSPHATASE 17 U/L (45-117); BILIRUBIN,TOTAL 0.4 mg/dL (0.2-1.0); TOTAL PROTEIN 5.2 g/dL (6.4-8.2)
[2017-04-08] MEDS: VALSARTAN 320 MG TABLET PO SCH (09:00)
[2017-04-08] MEDS: CALCIUM GLUCONATE 4.6 MEQ/10 ML IV ONE ×2 (09:00→09:57)
[2017-04-08] MEDS: AVANDIA HOMEMEDPO SCH (09:00)
[2017-04-08] MEDS: CALCIUM CITRATE 950 MG TABLET PO SCH (09:00)
[2017-04-08] MEDS: PANTOPROZOLE 40MG TABLET PO SCH ×2 (09:00→09:29)
[2017-04-08] MEDS: AMLODIPINE 5 MG TABLET PO SCH (09:00)
[2017-04-08] MEDS: TACROLIMUS 0.5 MG CAPSULE PO SCH (09:24)
[2017-04-08] MEDS: ASPIRIN 81 MG TABLET EC PO SCH (09:24)
[2017-04-08] MEDS: INSULIN GLARGINE 100 UNITS/ML, PEN SQ-INSULIN SCH (09:30)
[2017-04-08] MEDS ORDERED: ALBUMIN HUMAN 5% IV ONE (10:00)
[2017-04-08] MEDS ORDERED: FUROSEMIDE 40 MG TABLET PO SCH (17:00)
== END 2017-04-08 14:01 | disposition home or self-care (01) | DRG 698 ==
LOC: 4WST 13:14
PROVIDERS: ADMIT Internal Medicine Nephrology; ATTEND Internal Medicine Nephrology
PROC: 6A551Z3 Pheresis of Plasma, Multiple (ICD-10-PCS; principal; 2017-04-06)
DX: T86.19 Other complication of kidney transplant (principal); N18.6 End stage renal disease; E11.22 Type 2 diabetes mellitus with diabetic chronic kidney disease; I12.0 Hypertensive chronic kidney disease with stage 5 chronic kidney disease or end stage renal disease; N25.81 Secondary hyperparathyroidism of renal origin; D63.1 Anemia in chronic kidney disease; E78.5 Hyperlipidemia, unspecified; K21.9 Gastro-esophageal reflux disease without esophagitis; Z87.19 Personal history of other diseases of the digestive system; Z99.2 Dependence on renal dialysis; Y83.0 Surgical operation with transplant of whole organ as the cause of abnormal reaction of the patient, or of later complication, without mention of misadventure at the time of the procedure; Y92.89 Other specified places as the place of occurrence of the external cause
CPT/HCPCS: 36415; 80053; 81001; 82330; 82570; 82962; 83735; 84100; 84156; 85025; J1815; J7507; P9045; J0610; J7512; J7517

== ENCOUNTER 2017-05-04 09:00 | Inpatient (IN) | payer OTHER, MEDICARE ==
[~2017-05-04] VITALS: Ht 177.8 cm; Wt 69.3 kg
[2017-05-04 16:20] LABS: BASOPHILS % (AUTO) 0 % (0-1); EOSINOPHILS # (AUTO) 0.04 x10^3/uL (0-0.4); EOSINOPHILS % (AUTO) 1 % (1-7); LYMPHOCYTES # (AUTO) 0.47 x10^3/uL (1-3.4); LYMPHOCYTES % (AUTO) 10 % (22-44); MD NO; MEAN CORPUSCULAR HEMOGLOBIN 28.3 pg (27.5-34.5); MEAN CORPUSCULAR HGB CONC 33.9 g/dL (33.2-36.2); MEAN CORPUSCULAR VOLUME 83.7 fL (81-97); MEAN PLATELET VOLUME 7.8 fL (7.4-10.4); MONOCYTES # (AUTO) 0.48 x10^3/uL (0.2-0.8); MONOCYTES % (AUTO) 11 % (2-9); NEUTROPHILS % (AUTO) 79 % (42-75); PLATELET COUNT 179 x10^3/uL (130-400); RED CELL DISTRIBUTION WIDTH 13.2 % (9.4-14.8)
[2017-05-04 16:33] LABS: ALANINE AMINOTRANSFERASE 13 U/L (12-78); ALBUMIN 3.1 g/dL (3.4-5.0); ANION GAP 8 mmol/L (5-15); CALCIUM 8.3 mg/dL (8.5-10.1); CHLORIDE 104 mmol/L (98-107); CREATININE 2.65 mg/dL (0.7-1.3)
[2017-05-04 16:35] LABS: ALKALINE PHOSPHATASE 58 U/L (45-117); BILIRUBIN,TOTAL 0.3 mg/dL (0.2-1.0)
[2017-05-04 17:28] LABS: MICROSCOPIC AUTO
[2017-05-04 17:38] LABS: CREATININE,URINE RANDOM 38.2 mg/dL
[2017-05-04] MEDS ORDERED: ALBUMIN HUMAN 5% IV ONE (18:30)
[2017-05-04] MEDS ORDERED: CALCIUM GLUCONATE 4.6 MEQ/10 ML IV ONE ×2 (18:30)
[2017-05-04] MEDS ORDERED: ERGOCALCIFEROL 50,000 UNIT CAPSULE PO SCH (18:30)
[2017-05-04 18:51] VITALS: BP 146/71
[2017-05-04] MEDS ORDERED: DIPHENHYDRAMINE 50 MG CAPSULE PO PRN ×2 (19:30→20:00)
[2017-05-04] MEDS ORDERED: LIDOCAINE/PRILOCAINE CRM W/TEG 5GM TP SCH (20:00)
[2017-05-04] MEDS ORDERED: ACETAMINOPHEN 325 MG TABLET PO PRN (20:00)
[2017-05-04] MEDS ORDERED: ACETAMINOPHEN 650 MG SUPP PR PRN (20:00)
[2017-05-04] MEDS: SODIUM CHLORIDE FLUSH 10ML SYR IVF SCH (21:00)
[2017-05-04] MEDS ORDERED: FUROSEMIDE 40 MG TABLET PO SCH (21:00)
[2017-05-04 21:57] VITALS: BP 118/71
[2017-05-04] MEDS: TACROLIMUS 0.5 MG CAPSULE PO SCH (22:01)
[2017-05-04] MEDS: AMLODIPINE 5 MG TABLET PO SCH (22:02)
[2017-05-04] MEDS: PANTOPROZOLE 40MG TABLET PO SCH (22:02)
[2017-05-04] MEDS: ATORVASTATIN 10 MG TABLET PO SCH (22:02)
[2017-05-04] MEDS: INSULIN REGULAR 100 UNITS/ML, 3ML VIAL SQ-INSULIN SCH (22:53)
[2017-05-05 00:39] VITALS: BP 129/69
[2017-05-05] MEDS: ASPIRIN 81 MG TABLET EC PO SCH (05:12)
[2017-05-05 06:10] LABS: BASOPHILS # (AUTO) 0.01 x10^3/uL (0-0.1); BASOPHILS % (AUTO) 0 % (0-1); EOSINOPHILS # (AUTO) 0.05 x10^3/uL (0-0.4); EOSINOPHILS % (AUTO) 1 % (1-7); LYMPHOCYTES # (AUTO) 0.71 x10^3/uL (1-3.4); LYMPHOCYTES % (AUTO) 15 % (22-44); MD NO; MEAN CORPUSCULAR HEMOGLOBIN 28.2 pg (27.5-34.5); MEAN CORPUSCULAR HGB CONC 33.7 g/dL (33.2-36.2); MEAN CORPUSCULAR VOLUME 83.8 fL (81-97); MEAN PLATELET VOLUME 8.2 fL (7.4-10.4); MONOCYTES # (AUTO) 0.44 x10^3/uL (0.2-0.8); MONOCYTES % (AUTO) 9 % (2-9); NEUTROPHILS % (AUTO) 75 % (42-75); PLATELET COUNT 170 x10^3/uL (130-400); RED BLOOD COUNT 3.88 x10^6/uL (4.38-5.82)
[2017-05-05 06:16] LABS: ALBUMIN 4.4 g/dL (3.4-5.0); ANION GAP 12 mmol/L (5-15); CALCIUM 8.2 mg/dL (8.5-10.1); CHLORIDE 109 mmol/L (98-107)
[2017-05-05 06:20] LABS: ALANINE AMINOTRANSFERASE 9 U/L (12-78); ALKALINE PHOSPHATASE 24 U/L (45-117); BILIRUBIN,TOTAL 0.6 mg/dL (0.2-1.0); CREATININE 2.42 mg/dL (0.7-1.3); TOTAL PROTEIN 5.5 g/dL (6.4-8.2)
[2017-05-05] MEDS ORDERED: ALBUMIN HUMAN 5% IV ONE (08:00)
[2017-05-05 08:08] VITALS: BP 135/76
[2017-05-05] MEDS ORDERED: CALCIUM GLUCONATE 4.6 MEQ/10 ML IV ONE (08:30)
[2017-05-05] MEDS ORDERED: AMLODIPINE 5 MG TABLET PO SCH (09:00)
[2017-05-05] MEDS: SODIUM CHLORIDE FLUSH 10ML SYR IVF SCH ×2 (09:00→21:00)
[2017-05-05] MEDS ORDERED: INSULIN GLARGINE 100 UNITS/ML, PEN SQ-INSULIN SCH (09:00)
[2017-05-05] MEDS ORDERED: FUROSEMIDE 80 MG TABLET PO SCH (09:00)
[2017-05-05] MEDS: INSULIN REGULAR 100 UNITS/ML, 3ML VIAL SQ-INSULIN SCH ×4 (09:20→22:46)
[2017-05-05 11:27] LABS: CLOSTRIDIUM DIFFICILE TOXIN NEGATIVE (Negative)
[2017-05-05 11:30] LABS: CLOSTRIDIUM DIFFICILE ANTIGEN POSITIVE
[2017-05-05] MEDS: CALCIUM CITRATE 950 MG TABLET PO SCH (13:41)
[2017-05-05] MEDS: TACROLIMUS 0.5 MG CAPSULE PO SCH ×2 (13:42→22:11)
[2017-05-05] MEDS: PANTOPROZOLE 40MG TABLET PO SCH ×2 (13:42→22:11)
[2017-05-05] MEDS: VALSARTAN 320 MG TABLET PO SCH (13:42)
[2017-05-05] MEDS: INSULIN GLARGINE 100 UNITS/ML, PEN SQ-INSULIN SCH (13:43)
[2017-05-05 14:10] VITALS: BP 134/68
[2017-05-05 18:58] VITALS: BP 109/72
[2017-05-05] MEDS: ATORVASTATIN 10 MG TABLET PO SCH (22:10)
[2017-05-05] MEDS: AMLODIPINE 5 MG TABLET PO SCH (22:10)
[2017-05-06 07:32] LABS: BASOPHILS % (AUTO) 0 % (0-1); EOSINOPHILS % (AUTO) 2 % (1-7); LYMPHOCYTES % (AUTO) 12 % (22-44); MD NO; MEAN CORPUSCULAR HEMOGLOBIN 27.5 pg (27.5-34.5); MEAN CORPUSCULAR HGB CONC 32.7 g/dL (33.2-36.2); MEAN CORPUSCULAR VOLUME 84.1 fL (81-97); MONOCYTES # (AUTO) 0.37 x10^3/uL (0.2-0.8); MONOCYTES % (AUTO) 8 % (2-9); NEUTROPHILS # (AUTO) 3.83 x10^3/uL (1.8-6.8); NEUTROPHILS % (AUTO) 78 % (42-75); PLATELET COUNT 174 x10^3/uL (130-400); RED BLOOD COUNT 3.89 x10^6/uL (4.38-5.82)
[2017-05-06 07:35] VITALS: BP 101/52
[2017-05-06 07:41] LABS: ALANINE AMINOTRANSFERASE 7 U/L (12-78); ANION GAP 11 mmol/L (5-15); CALCIUM 8.4 mg/dL (8.5-10.1); CHLORIDE 115 mmol/L (98-107); CREATININE 2.46 mg/dL (0.7-1.3)
[2017-05-06 07:43] LABS: ALKALINE PHOSPHATASE 22 U/L (45-117); BILIRUBIN,TOTAL 0.5 mg/dL (0.2-1.0); TOTAL PROTEIN 4.9 g/dL (6.4-8.2)
[2017-05-06] MEDS: SODIUM CHLORIDE FLUSH 10ML SYR IVF SCH (07:48)
[2017-05-06 08:00] LABS: MICROSCOPIC AUTO
[2017-05-06] MEDS ORDERED: DIPHENHYDRAMINE 50 MG/ML, 1ML IVPush PRN (08:00)
[2017-05-06] MEDS ORDERED: ACETAMINOPHEN 325 MG TABLET PO ONE (08:00)
[2017-05-06] MEDS ORDERED: FAMOTIDINE 20 MG TABLET PO ONE (08:00)
[2017-05-06] MEDS ORDERED: methylPREDNISolone SOD SUCC 40 MG/ML IV SCH (08:00)
[2017-05-06 08:11] LABS: CREATININE,URINE RANDOM 77.3 mg/dL
[2017-05-06] MEDS ORDERED: CALCIUM GLUCONATE 4.6 MEQ/10 ML IV ONE (08:30)
[2017-05-06] MEDS ORDERED: ALBUMIN HUMAN 5% IV ONE ×2 (08:30)
[2017-05-06] MEDS: VALSARTAN 320 MG TABLET PO SCH (08:58)
[2017-05-06] MEDS: TACROLIMUS 0.5 MG CAPSULE PO SCH (08:58)
[2017-05-06] MEDS: INSULIN GLARGINE 100 UNITS/ML, PEN SQ-INSULIN SCH (08:58)
[2017-05-06] MEDS: CALCIUM CITRATE 950 MG TABLET PO SCH (08:59)
[2017-05-06] MEDS: ASPIRIN 81 MG TABLET EC PO SCH (08:59)
[2017-05-06] MEDS: PANTOPROZOLE 40MG TABLET PO SCH (08:59)
[2017-05-06] MEDS: INSULIN REGULAR 100 UNITS/ML, 3ML VIAL SQ-INSULIN SCH ×2 (09:01→11:32)
[2017-05-06 13:09] VITALS: BP 126/62
== END 2017-05-06 14:17 | disposition home or self-care (01) | DRG 682 ==
LOC: 4WST 14:12
PROVIDERS: ADMIT Internal Medicine Nephrology; ATTEND Internal Medicine Nephrology
PROC: 5A1D70Z Performance of Urinary Filtration, Intermittent, Less than 6 Hours Per Day (ICD-10-PCS; principal; 2017-05-05)
DX: I12.0 Hypertensive chronic kidney disease with stage 5 chronic kidney disease or end stage renal disease (principal); N18.6 End stage renal disease; E11.22 Type 2 diabetes mellitus with diabetic chronic kidney disease; E11.65 Type 2 diabetes mellitus with hyperglycemia; E87.2 Acidosis; N25.0 Renal osteodystrophy; N25.81 Secondary hyperparathyroidism of renal origin; Z94.0 Kidney transplant status; I25.10 Atherosclerotic heart disease of native coronary artery without angina pectoris; D63.1 Anemia in chronic kidney disease; E78.5 Hyperlipidemia, unspecified; K21.9 Gastro-esophageal reflux disease without esophagitis; Z79.4 Long term (current) use of insulin; Z86.73 Personal history of transient ischemic attack (TIA), and cerebral infarction without residual deficits; Z87.19 Personal history of other diseases of the digestive system; Z99.2 Dependence on renal dialysis
CPT/HCPCS: 36415; 36514; 80053; 81001; 82330; 82570; 82962; 83735; 84100; 84156; 85025; 87324; 87493; 87496; J1815; J7507; P9045; J0610; J7512; J7517

== ENCOUNTER 2017-08-31 09:00 | Inpatient (IN) | payer MEDICARE ==
[~2017-08-31] VITALS: Ht 177.8 cm; Wt 68.0 kg
[2017-08-31 12:10] LABS: BASOPHILS # (AUTO) 0.01 x10^3/uL (0-0.1); BASOPHILS % (AUTO) 0 % (0-1); EOSINOPHILS # (AUTO) 0.04 x10^3/uL (0-0.4); EOSINOPHILS % (AUTO) 1 % (1-7); LYMPHOCYTES # (AUTO) 0.59 x10^3/uL (1-3.4); LYMPHOCYTES % (AUTO) 12 % (22-44); MD NO; MEAN CORPUSCULAR HEMOGLOBIN 27.9 pg (27.5-34.5); MEAN CORPUSCULAR HGB CONC 33.2 g/dL (33.2-36.2); MEAN CORPUSCULAR VOLUME 84.2 fL (81-97); MEAN PLATELET VOLUME 7.8 fL (7.4-10.4); MONOCYTES # (AUTO) 0.53 x10^3/uL (0.2-0.8); MONOCYTES % (AUTO) 11 % (2-9); NEUTROPHILS # (AUTO) 3.87 x10^3/uL (1.8-6.8); NEUTROPHILS % (AUTO) 77 % (42-75); PLATELET COUNT 203 x10^3/uL (130-400); RED BLOOD COUNT 3.59 x10^6/uL (4.38-5.82); RED CELL DISTRIBUTION WIDTH 13.8 % (9.4-14.8)
[2017-08-31 12:17] LABS: ALANINE AMINOTRANSFERASE 15 U/L (12-78); ALBUMIN 2.8 g/dL (3.4-5.0); ANION GAP 6 mmol/L (5-15); CALCIUM 8.1 mg/dL (8.5-10.1); CHLORIDE 109 mmol/L (98-107); CREATININE 2.37 mg/dL (0.7-1.3)
[2017-08-31 12:19] LABS: ALKALINE PHOSPHATASE 61 U/L (45-117); BILIRUBIN,TOTAL 0.2 mg/dL (0.2-1.0); TOTAL PROTEIN 5.6 g/dL (6.4-8.2)
[2017-08-31 12:20] VITALS: BP 163/83
[2017-08-31] MEDS ORDERED: ACETAMINOPHEN 325 MG TABLET PO PRN (14:00)
[2017-08-31] MEDS ORDERED: ACETAMINOPHEN 650 MG SUPP PR PRN (14:00)
[2017-08-31] MEDS ORDERED: LIDOCAINE/PRILOCAINE CRM W/TEG 5GM TP SCH (14:00)
[2017-08-31] MEDS: DIPHENHYDRAMINE 50 MG CAPSULE PO PRN (16:04)
[2017-08-31] MEDS: INSULIN REGULAR 100 UNITS/ML, 3ML VIAL SQ-INSULIN SCH ×2 (16:12→20:30)
[2017-08-31] MEDS: CALCIUM CHLORIDE 13.6 MEQ/10 ML IV PRN (16:51)
[2017-08-31] MEDS: ALBUMIN HUMAN 5% IV SCH (17:09)
[2017-08-31 20:06] VITALS: BP 136/71
[2017-08-31] MEDS: PANTOPROZOLE 40MG TABLET PO SCH (20:29)
[2017-08-31] MEDS: SODIUM CHLORIDE FLUSH 10ML SYR IVF SCH (20:29)
[2017-08-31] MEDS: TACROLIMUS 0.5 MG CAPSULE PO SCH (20:29)
[2017-08-31] MEDS: ATORVASTATIN 10 MG TABLET PO SCH (20:30)
[2017-08-31] MEDS: AMLODIPINE 5 MG TABLET PO SCH (20:30)
[2017-08-31 23:37] LABS: MICROSCOPIC AUTO
[2017-09-01 05:30] LABS: CHLORIDE 114 mmol/L (98-107)
[2017-09-01 05:32] LABS: BASOPHILS # (AUTO) 0.01 x10^3/uL (0-0.1); BASOPHILS % (AUTO) 0 % (0-1); EOSINOPHILS # (AUTO) 0.07 x10^3/uL (0-0.4); EOSINOPHILS % (AUTO) 2 % (1-7); LYMPHOCYTES % (AUTO) 16 % (22-44); MD NO; MEAN CORPUSCULAR HEMOGLOBIN 27.9 pg (27.5-34.5); MEAN CORPUSCULAR HGB CONC 33.5 g/dL (33.2-36.2); MEAN CORPUSCULAR VOLUME 83.1 fL (81-97); MEAN PLATELET VOLUME 8.4 fL (7.4-10.4); MONOCYTES # (AUTO) 0.48 x10^3/uL (0.2-0.8); MONOCYTES % (AUTO) 11 % (2-9); NEUTROPHILS # (AUTO) 3.02 x10^3/uL (1.8-6.8); NEUTROPHILS % (AUTO) 71 % (42-75); PLATELET COUNT 180 x10^3/uL (130-400); RED BLOOD COUNT 3.46 x10^6/uL (4.38-5.82); RED CELL DISTRIBUTION WIDTH 13.4 % (9.4-14.8)
[2017-09-01 05:43] LABS: ALANINE AMINOTRANSFERASE 11 U/L (12-78); ALBUMIN 3.5 g/dL (3.4-5.0); ALKALINE PHOSPHATASE 23 U/L (45-117); ANION GAP 7 mmol/L (5-15); BILIRUBIN,TOTAL 0.3 mg/dL (0.2-1.0); CALCIUM 8.2 mg/dL (8.5-10.1); CREATININE 2.22 mg/dL (0.7-1.3); TOTAL PROTEIN 4.7 g/dL (6.4-8.2)
[2017-09-01] MEDS: ASPIRIN 81 MG TABLET EC PO SCH (06:17)
[2017-09-01 07:18] VITALS: BP 150/77
[2017-09-01] MEDS: SODIUM CHLORIDE FLUSH 10ML SYR IVF SCH ×2 (08:23→20:28)
[2017-09-01] MEDS: INSULIN REGULAR 100 UNITS/ML, 3ML VIAL SQ-INSULIN SCH ×4 (08:57→20:25)
[2017-09-01] MEDS: CALCIUM CITRATE 950 MG TABLET PO SCH (08:57)
[2017-09-01] MEDS: VALSARTAN 320 MG TABLET PO SCH (08:57)
[2017-09-01] MEDS: PANTOPROZOLE 40MG TABLET PO SCH ×2 (08:57→20:26)
[2017-09-01] MEDS: TACROLIMUS 0.5 MG CAPSULE PO SCH ×2 (08:57→20:27)
[2017-09-01] MEDS: AVANDIA HOMEMEDPO SCH (09:00)
[2017-09-01] MEDS: INSULIN GLARGINE 100 UNITS/ML, PEN SQ-INSULIN SCH (09:43)
[2017-09-01] MEDS: DIPHENHYDRAMINE 50 MG CAPSULE PO PRN (14:49)
[2017-09-01 15:00] VITALS: BP 143/76
[2017-09-01] MEDS: ALBUMIN HUMAN 5% IV SCH (15:34)
[2017-09-01] MEDS: CALCIUM CHLORIDE 13.6 MEQ/10 ML IV PRN (15:34)
[2017-09-01 20:22] VITALS: BP 137/83
[2017-09-01] MEDS: ATORVASTATIN 10 MG TABLET PO SCH (20:26)
[2017-09-01] MEDS: AMLODIPINE 5 MG TABLET PO SCH (20:26)
[2017-09-02 05:17] LABS: BASOPHILS # (AUTO) 0.02 x10^3/uL (0-0.1); BASOPHILS % (AUTO) 0 % (0-1); EOSINOPHILS # (AUTO) 0.11 x10^3/uL (0-0.4); EOSINOPHILS % (AUTO) 3 % (1-7); LYMPHOCYTES # (AUTO) 0.76 x10^3/uL (1-3.4); LYMPHOCYTES % (AUTO) 17 % (22-44); MD NO; MEAN CORPUSCULAR HEMOGLOBIN 27.9 pg (27.5-34.5); MEAN CORPUSCULAR HGB CONC 33.2 g/dL (33.2-36.2); MEAN CORPUSCULAR VOLUME 83.9 fL (81-97); MEAN PLATELET VOLUME 8.4 fL (7.4-10.4); MONOCYTES # (AUTO) 0.45 x10^3/uL (0.2-0.8); MONOCYTES % (AUTO) 10 % (2-9); NEUTROPHILS # (AUTO) 3.06 x10^3/uL (1.8-6.8); NEUTROPHILS % (AUTO) 70 % (42-75); PLATELET COUNT 165 x10^3/uL (130-400); RED BLOOD COUNT 3.52 x10^6/uL (4.38-5.82)
[2017-09-02 05:23] LABS: CHLORIDE 118 mmol/L (98-107)
[2017-09-02 05:35] LABS: ALANINE AMINOTRANSFERASE 11 U/L (12-78); ALBUMIN 3.9 g/dL (3.4-5.0); ALKALINE PHOSPHATASE 16 U/L (45-117); ANION GAP 8 mmol/L (5-15); BILIRUBIN,TOTAL 0.5 mg/dL (0.2-1.0); CALCIUM 8.4 mg/dL (8.5-10.1); CREATININE 2.11 mg/dL (0.7-1.3); TOTAL PROTEIN 4.7 g/dL (6.4-8.2)
[2017-09-02] MEDS: ASPIRIN 81 MG TABLET EC PO SCH (06:14)
[2017-09-02 07:43] VITALS: BP 131/65
[2017-09-02] MEDS: SODIUM CHLORIDE FLUSH 10ML SYR IVF SCH (08:42)
[2017-09-02] MEDS: AVANDIA HOMEMEDPO SCH (08:42)
[2017-09-02] MEDS: PANTOPROZOLE 40MG TABLET PO SCH (08:49)
[2017-09-02] MEDS: CALCIUM CITRATE 950 MG TABLET PO SCH (08:49)
[2017-09-02] MEDS: INSULIN GLARGINE 100 UNITS/ML, PEN SQ-INSULIN SCH (08:49)
[2017-09-02] MEDS: TACROLIMUS 0.5 MG CAPSULE PO SCH (08:49)
[2017-09-02] MEDS: INSULIN REGULAR 100 UNITS/ML, 3ML VIAL SQ-INSULIN SCH ×2 (08:49→12:23)
[2017-09-02] MEDS: DIPHENHYDRAMINE 50 MG CAPSULE PO PRN (08:53)
[2017-09-02] MEDS: VALSARTAN 320 MG TABLET PO SCH (08:53)
[2017-09-02] MEDS: CALCIUM CHLORIDE 13.6 MEQ/10 ML IV PRN (09:41)
[2017-09-02] MEDS: ALBUMIN HUMAN 5% IV SCH (09:42)
[2017-09-02 12:26] LABS: MICROSCOPIC AUTO
[2017-09-02 12:55] LABS: CREATININE,URINE RANDOM 20.7 mg/dL
[2017-09-02 13:13] VITALS: BP 141/76
== END 2017-09-02 14:01 | disposition home or self-care (01) | DRG 698 ==
LOC: 4EST 11:20
PROVIDERS: ADMIT Internal Medicine Nephrology; ATTEND Internal Medicine Nephrology
PROC: 6A551Z3 Pheresis of Plasma, Multiple (ICD-10-PCS; principal; 2017-08-31)
DX: T86.19 Other complication of kidney transplant (principal); N18.6 End stage renal disease; I12.0 Hypertensive chronic kidney disease with stage 5 chronic kidney disease or end stage renal disease; N25.81 Secondary hyperparathyroidism of renal origin; Z94.0 Kidney transplant status; D63.1 Anemia in chronic kidney disease; E11.22 Type 2 diabetes mellitus with diabetic chronic kidney disease; E78.5 Hyperlipidemia, unspecified; I25.10 Atherosclerotic heart disease of native coronary artery without angina pectoris; K21.9 Gastro-esophageal reflux disease without esophagitis; Z79.4 Long term (current) use of insulin; Z86.73 Personal history of transient ischemic attack (TIA), and cerebral infarction without residual deficits; Z87.19 Personal history of other diseases of the digestive system; Z87.441 Personal history of nephrotic syndrome; Z99.2 Dependence on renal dialysis; Y83.0 Surgical operation with transplant of whole organ as the cause of abnormal reaction of the patient, or of later complication, without mention of misadventure at the time of the procedure; Y92.89 Other specified places as the place of occurrence of the external cause
CPT/HCPCS: 36415; 80053; 81001; 82330; 82570; 82962; 83735; 84100; 84156; 85025; J1815; J7507; P9045; J7512; J7517

== ENCOUNTER 2017-11-02 09:00 | Inpatient (IN) | payer MEDICARE ==
[~2017-11-02] VITALS: Ht 175.3 cm; Wt 65.2 kg
[~2017-11-02 09:00] MED LIST changes: -AMLO10TA2 PO; +AMLO10TA6 PO
[2017-11-02] MEDS ORDERED: ACETAMINOPHEN 650 MG SUPP PR PRN (14:30)
[2017-11-02] MEDS ORDERED: ACETAMINOPHEN 325 MG TABLET PO PRN (14:30)
[2017-11-02] MEDS ORDERED: LIDOCAINE/PRILOCAINE CRM W/TEG 5GM TP SCH (14:30)
[2017-11-02 15:05] LABS: BASOPHILS # (AUTO) 0.01 x10^3/uL (0-0.1); BASOPHILS % (AUTO) 0 % (0-1); EOSINOPHILS # (AUTO) 0.03 x10^3/uL (0-0.4); EOSINOPHILS % (AUTO) 1 % (1-7); LYMPHOCYTES # (AUTO) 0.41 x10^3/uL (1-3.4); LYMPHOCYTES % (AUTO) 9 % (22-44); MD NO; MEAN CORPUSCULAR HEMOGLOBIN 28.3 pg (27.5-34.5); MEAN CORPUSCULAR VOLUME 83.1 fL (81-97); MEAN PLATELET VOLUME 7.7 fL (7.4-10.4); MONOCYTES # (AUTO) 0.39 x10^3/uL (0.2-0.8); MONOCYTES % (AUTO) 9 % (2-9); NEUTROPHILS # (AUTO) 3.79 x10^3/uL (1.8-6.8); NEUTROPHILS % (AUTO) 82 % (42-75); PLATELET COUNT 184 x10^3/uL (130-400); RED BLOOD COUNT 3.49 x10^6/uL (4.38-5.82); RED CELL DISTRIBUTION WIDTH 13.1 % (9.4-14.8)
[2017-11-02 15:07] VITALS: BP 144/72
[2017-11-02 15:14] LABS: ALANINE AMINOTRANSFERASE 15 U/L (12-78); ALBUMIN 3.1 g/dL (3.4-5.0); ANION GAP 9 mmol/L (5-15); CHLORIDE 97 mmol/L (98-107)
[2017-11-02 15:16] LABS: ALKALINE PHOSPHATASE 67 U/L (45-117); BILIRUBIN,TOTAL 0.4 mg/dL (0.2-1.0)
[2017-11-02 16:22] LABS: MICROSCOPIC AUTO
[2017-11-02] MEDS: DIPHENHYDRAMINE 50 MG CAPSULE PO PRN (16:26)
[2017-11-02] MEDS: CALCIUM GLUCONATE 4.6 MEQ/10 ML IV PRN (17:03)
[2017-11-02] MEDS: ALBUMIN HUMAN 5% IV PRN (17:03)
[2017-11-02] MEDS: INSULIN REGULAR 100 UNITS/ML, 3ML VIAL SQ-INSULIN SCH ×2 (17:46→21:53)
[2017-11-02 20:41] VITALS: BP 142/73
[2017-11-02] MEDS: SODIUM CHLORIDE FLUSH 10ML SYR IVF SCH (21:00)
[2017-11-02] MEDS: TACROLIMUS 0.5 MG CAPSULE PO SCH (21:52)
[2017-11-02] MEDS: AMLODIPINE 5 MG TABLET PO SCH (21:52)
[2017-11-02] MEDS: ATORVASTATIN 10 MG TABLET PO SCH (21:52)
[2017-11-02] MEDS: PANTOPROZOLE 40MG TABLET PO SCH (21:52)
[2017-11-02 22:24] LABS: MICROSCOPIC AUTO
[2017-11-02 22:32] LABS: CREATININE,URINE RANDOM 39.2 mg/dL
[2017-11-03 01:25] VITALS: BP 119/65
[2017-11-03 05:07] LABS: BASOPHILS # (AUTO) 0.02 x10^3/uL (0-0.1); BASOPHILS % (AUTO) 0 % (0-1); EOSINOPHILS # (AUTO) 0.06 x10^3/uL (0-0.4); EOSINOPHILS % (AUTO) 1 % (1-7); LYMPHOCYTES # (AUTO) 0.98 x10^3/uL (1-3.4); LYMPHOCYTES % (AUTO) 16 % (22-44); MD NO; MEAN CORPUSCULAR HEMOGLOBIN 27.9 pg (27.5-34.5); MEAN CORPUSCULAR HGB CONC 33.5 g/dL (33.2-36.2); MEAN CORPUSCULAR VOLUME 83.3 fL (81-97); MONOCYTES # (AUTO) 0.62 x10^3/uL (0.2-0.8); MONOCYTES % (AUTO) 10 % (2-9); NEUTROPHILS % (AUTO) 72 % (42-75); PLATELET COUNT 212 x10^3/uL (130-400); RED BLOOD COUNT 3.74 x10^6/uL (4.38-5.82); RED CELL DISTRIBUTION WIDTH 13.3 % (9.4-14.8)
[2017-11-03 05:23] LABS: ALANINE AMINOTRANSFERASE 12 U/L (12-78); ANION GAP 13 mmol/L (5-15); CALCIUM 8.2 mg/dL (8.5-10.1); CHLORIDE 111 mmol/L (98-107); CREATININE 2.73 mg/dL (0.7-1.3)
[2017-11-03 05:24] LABS: ALKALINE PHOSPHATASE 22 U/L (45-117); BILIRUBIN,TOTAL 0.4 mg/dL (0.2-1.0)
[2017-11-03] MEDS: ASPIRIN 81 MG TABLET EC PO SCH (06:14)
[2017-11-03] MEDS: INSULIN REGULAR 100 UNITS/ML, 3ML VIAL SQ-INSULIN SCH ×4 (07:00→20:29)
[2017-11-03 07:06] VITALS: BP 121/64
[2017-11-03] MEDS: SODIUM CHLORIDE FLUSH 10ML SYR IVF SCH ×2 (07:13→20:31)
[2017-11-03] MEDS: AVANDIA HOMEMEDPO SCH (09:00)
[2017-11-03] MEDS ORDERED: INSULIN GLARGINE 100 UNITS/ML, PEN SQ-INSULIN SCH (09:00)
[2017-11-03] MEDS: VALSARTAN 320 MG TABLET PO SCH (09:42)
[2017-11-03] MEDS: PANTOPROZOLE 40MG TABLET PO SCH ×2 (09:42→20:28)
[2017-11-03] MEDS: TACROLIMUS 0.5 MG CAPSULE PO SCH ×2 (09:42→20:28)
[2017-11-03] MEDS: DIPHENHYDRAMINE 50 MG CAPSULE PO PRN (09:42)
[2017-11-03] MEDS: CALCIUM CITRATE 950 MG TABLET PO SCH (09:42)
[2017-11-03] MEDS: CALCIUM GLUCONATE 4.6 MEQ/10 ML IV PRN (09:50)
[2017-11-03] MEDS: ALBUMIN HUMAN 5% IV PRN (09:50)
[2017-11-03] MEDS: INSULIN GLARGINE 100 UNITS/ML, PEN SQ-INSULIN SCH (10:22)
[2017-11-03] MEDS ORDERED: TORSEMIDE 20 MG TABLET PO ONE (10:30)
[2017-11-03 13:10] VITALS: BP 140/75
[2017-11-03 19:05] VITALS: BP 127/70
[2017-11-03] MEDS: AMLODIPINE 5 MG TABLET PO SCH (20:28)
[2017-11-03] MEDS: ATORVASTATIN 10 MG TABLET PO SCH (20:28)
[2017-11-04 03:53] VITALS: BP 115/62
[2017-11-04 04:42] LABS: BASOPHILS # (AUTO) 0.01 x10^3/uL (0-0.1); BASOPHILS % (AUTO) 0 % (0-1); EOSINOPHILS # (AUTO) 0.05 x10^3/uL (0-0.4); EOSINOPHILS % (AUTO) 1 % (1-7); LYMPHOCYTES # (AUTO) 0.83 x10^3/uL (1-3.4); LYMPHOCYTES % (AUTO) 17 % (22-44); MD NO; MEAN CORPUSCULAR HEMOGLOBIN 27.2 pg (27.5-34.5); MEAN CORPUSCULAR HGB CONC 32.9 g/dL (33.2-36.2); MEAN CORPUSCULAR VOLUME 82.7 fL (81-97); MEAN PLATELET VOLUME 8.1 fL (7.4-10.4); MONOCYTES % (AUTO) 10 % (2-9); NEUTROPHILS # (AUTO) 3.64 x10^3/uL (1.8-6.8); NEUTROPHILS % (AUTO) 72 % (42-75); PLATELET COUNT 181 x10^3/uL (130-400); RED BLOOD COUNT 3.81 x10^6/uL (4.38-5.82); RED CELL DISTRIBUTION WIDTH 13.6 % (9.4-14.8)
[2017-11-04 04:54] LABS: CHLORIDE 112 mmol/L (98-107)
[2017-11-04 05:00] LABS: ALANINE AMINOTRANSFERASE 11 U/L (12-78); ALKALINE PHOSPHATASE 21 U/L (45-117); ANION GAP 10 mmol/L (5-15); BILIRUBIN,TOTAL 0.3 mg/dL (0.2-1.0); CALCIUM 8.5 mg/dL (8.5-10.1); CREATININE 2.91 mg/dL (0.7-1.3); TOTAL PROTEIN 5.2 g/dL (6.4-8.2)
[2017-11-04] MEDS: ASPIRIN 81 MG TABLET EC PO SCH (06:04)
[2017-11-04 06:53] VITALS: BP 118/63
[2017-11-04] MEDS: TACROLIMUS 0.5 MG CAPSULE PO SCH (07:33)
[2017-11-04] MEDS: CALCIUM CITRATE 950 MG TABLET PO SCH (07:33)
[2017-11-04] MEDS: AVANDIA HOMEMEDPO SCH (07:34)
[2017-11-04] MEDS: VALSARTAN 320 MG TABLET PO SCH (07:34)
[2017-11-04] MEDS: PANTOPROZOLE 40MG TABLET PO SCH (07:34)
[2017-11-04] MEDS: SODIUM CHLORIDE FLUSH 10ML SYR IVF SCH (07:34)
[2017-11-04] MEDS: INSULIN GLARGINE 100 UNITS/ML, PEN SQ-INSULIN SCH (07:35)
[2017-11-04] MEDS: INSULIN REGULAR 100 UNITS/ML, 3ML VIAL SQ-INSULIN SCH ×2 (07:35→11:37)
[2017-11-04] MEDS ORDERED: INSULIN GLARGINE 100 UNITS/ML, PEN SQ-INSULIN SCH (09:00)
[2017-11-04] MEDS ORDERED: SODIUM BICARBONATE 650 MG TABLET PO ONE (09:00)
[2017-11-04] MEDS: ALBUMIN HUMAN 5% IV PRN (09:17)
[2017-11-04] MEDS: CALCIUM GLUCONATE 4.6 MEQ/10 ML IV PRN (09:17)
== END 2017-11-04 13:58 | disposition home or self-care (01) | DRG 682 ==
LOC: 4WST 13:52
PROVIDERS: ADMIT Internal Medicine Nephrology; ATTEND Internal Medicine Nephrology
PROC: 6A551Z3 Pheresis of Plasma, Multiple (ICD-10-PCS; principal; 2017-11-02)
PROC: 5A1D70Z Performance of Urinary Filtration, Intermittent, Less than 6 Hours Per Day (ICD-10-PCS; 2017-11-02)
PROC: 5A1D70Z Performance of Urinary Filtration, Intermittent, Less than 6 Hours Per Day (ICD-10-PCS; 2017-11-03)
PROC: 5A1D70Z Performance of Urinary Filtration, Intermittent, Less than 6 Hours Per Day (ICD-10-PCS; 2017-11-04)
DX: I12.0 Hypertensive chronic kidney disease with stage 5 chronic kidney disease or end stage renal disease (principal); N18.6 End stage renal disease; Z94.0 Kidney transplant status; N25.81 Secondary hyperparathyroidism of renal origin; D63.1 Anemia in chronic kidney disease; E11.22 Type 2 diabetes mellitus with diabetic chronic kidney disease; E78.5 Hyperlipidemia, unspecified; K21.9 Gastro-esophageal reflux disease without esophagitis; I25.10 Atherosclerotic heart disease of native coronary artery without angina pectoris; E55.9 Vitamin D deficiency, unspecified; Z99.2 Dependence on renal dialysis; Z79.4 Long term (current) use of insulin; Z87.19 Personal history of other diseases of the digestive system; Z86.73 Personal history of transient ischemic attack (TIA), and cerebral infarction without residual deficits; Z90.49 Acquired absence of other specified parts of digestive tract; Z87.441 Personal history of nephrotic syndrome
CPT/HCPCS: 36415; 36514; 80053; 81001; 82330; 82570; 82962; 83735; 84100; 84156; 85025; G0378; J1815; J7507; P9045; J0610; J7512; J7517

== ENCOUNTER 2017-12-07 09:00 | Inpatient (IN) | payer MEDICARE ==
[~2017-12-07] VITALS: Ht 177.8 cm; Wt 68.8 kg
[~2017-12-07 09:00] MED LIST changes: -MYCO500V PO; +MYCO500V5 PO
[2017-12-07] MEDS ORDERED: LIDOCAINE/PRILOCAINE CRM W/TEG 5GM TP SCH (11:30)
[2017-12-07] MEDS ORDERED: ACETAMINOPHEN 325 MG TABLET PO PRN (11:30)
[2017-12-07] MEDS ORDERED: DIPHENHYDRAMINE 50 MG CAPSULE PO PRN (11:30)
[2017-12-07] MEDS ORDERED: ACETAMINOPHEN 650 MG SUPP PR PRN (11:30)
[2017-12-07 11:37] LABS: BASOPHILS # (AUTO) 0.01 x10^3/uL (0-0.1); BASOPHILS % (AUTO) 0 % (0-1); EOSINOPHILS # (AUTO) 0.03 x10^3/uL (0-0.4); EOSINOPHILS % (AUTO) 1 % (1-7); LYMPHOCYTES # (AUTO) 0.44 x10^3/uL (1-3.4); LYMPHOCYTES % (AUTO) 12 % (22-44); MD NO; MEAN CORPUSCULAR HEMOGLOBIN 27.9 pg (27.5-34.5); MEAN CORPUSCULAR HGB CONC 34.2 g/dL (33.2-36.2); MEAN CORPUSCULAR VOLUME 81.6 fL (81-97); MEAN PLATELET VOLUME 8.5 fL (7.4-10.4); MONOCYTES # (AUTO) 0.31 x10^3/uL (0.2-0.8); MONOCYTES % (AUTO) 9 % (2-9); NEUTROPHILS # (AUTO) 2.78 x10^3/uL (1.8-6.8); NEUTROPHILS % (AUTO) 78 % (42-75); PLATELET COUNT 154 x10^3/uL (130-400); RED CELL DISTRIBUTION WIDTH 12.6 % (9.4-14.8)
[2017-12-07 12:20] VITALS: BP 160/76
[2017-12-07 12:47] LABS: ALANINE AMINOTRANSFERASE 19 U/L (12-78); ALBUMIN 2.9 g/dL (3.4-5.0); ANION GAP 10 mmol/L (5-15); BILIRUBIN,TOTAL 0.4 mg/dL (0.2-1.0); CALCIUM 7.9 mg/dL (8.5-10.1); CHLORIDE 95 mmol/L (98-107); CREATININE 2.96 mg/dL (0.7-1.3); TOTAL PROTEIN 5.9 g/dL (6.4-8.2)
[2017-12-07 12:48] LABS: ALKALINE PHOSPHATASE 74 U/L (45-117)
[2017-12-07] MEDS ORDERED: INSULIN REGULAR 100 UNITS/ML, 3ML VIAL SQ-INSULIN ONE (13:30)
[2017-12-07] MEDS: CALCIUM GLUCONATE 4.6 MEQ/10 ML IV PRN (13:42)
[2017-12-07] MEDS: ALBUMIN HUMAN 5% IV PRN (13:42)
[2017-12-07] MEDS ORDERED: DIPHENHYDRAMINE 25 MG CAPSULE ONE (13:48)
[2017-12-07] MEDS: DIPHENHYDRAMINE 25 MG CAPSULE PO PRN (13:55)
[2017-12-07 14:00] LABS: MICROSCOPIC INDICATED
[2017-12-07 14:02] LABS: TOTAL PROTEIN,URINE RANDOM 107 mg/dL (0-12)
[2017-12-07 14:03] LABS: CREATININE,URINE RANDOM < 13.00 mg/dL
[2017-12-07] MEDS: INSULIN REGULAR 100 UNITS/ML, 3ML VIAL SQ-INSULIN SCH ×2 (16:00→20:15)
[2017-12-07 19:38] VITALS: BP 123/65
[2017-12-07] MEDS: AMLODIPINE 5 MG TABLET PO SCH (20:14)
[2017-12-07] MEDS: PANTOPROZOLE 40MG TABLET PO SCH (20:14)
[2017-12-07] MEDS: TACROLIMUS 0.5 MG CAPSULE PO SCH (20:14)
[2017-12-07] MEDS: ATORVASTATIN 10 MG TABLET PO SCH (20:15)
[2017-12-07] MEDS: SODIUM CHLORIDE FLUSH 10ML SYR IVF SCH (20:20)
[2017-12-08 01:38] VITALS: BP 106/58
[2017-12-08 05:15] LABS: BASOPHILS # (AUTO) 0.02 x10^3/uL (0-0.1); BASOPHILS % (AUTO) 0 % (0-1); EOSINOPHILS # (AUTO) 0.04 x10^3/uL (0-0.4); EOSINOPHILS % (AUTO) 1 % (1-7); LYMPHOCYTES # (AUTO) 0.88 x10^3/uL (1-3.4); LYMPHOCYTES % (AUTO) 18 % (22-44); MD NO; MEAN CORPUSCULAR HEMOGLOBIN 27.7 pg (27.5-34.5); MEAN CORPUSCULAR HGB CONC 33.8 g/dL (33.2-36.2); MEAN CORPUSCULAR VOLUME 81.9 fL (81-97); MEAN PLATELET VOLUME 8.6 fL (7.4-10.4); MONOCYTES # (AUTO) 0.35 x10^3/uL (0.2-0.8); MONOCYTES % (AUTO) 7 % (2-9); NEUTROPHILS # (AUTO) 3.64 x10^3/uL (1.8-6.8); NEUTROPHILS % (AUTO) 74 % (42-75); PLATELET COUNT 179 x10^3/uL (130-400); RED BLOOD COUNT 3.53 x10^6/uL (4.38-5.82); RED CELL DISTRIBUTION WIDTH 12.8 % (9.4-14.8)
[2017-12-08 05:19] LABS: ALBUMIN 3.9 g/dL (3.4-5.0); ANION GAP 8 mmol/L (5-15); CALCIUM 8.2 mg/dL (8.5-10.1); CHLORIDE 111 mmol/L (98-107)
[2017-12-08 05:23] LABS: ALANINE AMINOTRANSFERASE 14 U/L (12-78); ALKALINE PHOSPHATASE 20 U/L (45-117); BILIRUBIN,TOTAL 0.4 mg/dL (0.2-1.0); CREATININE 2.49 mg/dL (0.7-1.3)
[2017-12-08] MEDS ORDERED: ASPIRIN 81 MG TABLET EC PO SCH (06:00)
[2017-12-08] MEDS: ASPIRIN 81 MG TABLET EC PO SCH (06:18)
[2017-12-08] MEDS: INSULIN REGULAR 100 UNITS/ML, 3ML VIAL SQ-INSULIN SCH ×4 (07:00→21:19)
[2017-12-08 08:54] VITALS: BP 132/73
[2017-12-08] MEDS: SODIUM CHLORIDE FLUSH 10ML SYR IVF SCH ×2 (09:00→21:00)
[2017-12-08] MEDS: CALCIUM CITRATE 950 MG TABLET PO SCH (09:05)
[2017-12-08] MEDS: TACROLIMUS 0.5 MG CAPSULE PO SCH ×2 (09:05→21:20)
[2017-12-08] MEDS: VALSARTAN 320 MG TABLET PO SCH (09:05)
[2017-12-08] MEDS: PANTOPROZOLE 40MG TABLET PO SCH ×2 (09:05→21:20)
[2017-12-08] MEDS: INSULIN GLARGINE 100 UNITS/ML, PEN SQ-INSULIN SCH (11:45)
[2017-12-08 14:00] VITALS: BP 127/68
[2017-12-08] MEDS: DIPHENHYDRAMINE 25 MG CAPSULE PO PRN (14:45)
[2017-12-08] MEDS: ALBUMIN HUMAN 5% IV PRN (15:08)
[2017-12-08] MEDS: CALCIUM GLUCONATE 4.6 MEQ/10 ML IV PRN (15:08)
[2017-12-08 20:22] VITALS: BP 117/52
[2017-12-08] MEDS: ATORVASTATIN 10 MG TABLET PO SCH (21:19)
[2017-12-08] MEDS: AMLODIPINE 5 MG TABLET PO SCH (21:20)
[2017-12-09 02:46] VITALS: BP 120/70
[2017-12-09 05:30] LABS: BASOPHILS # (AUTO) 0.03 x10^3/uL (0-0.1); BASOPHILS % (AUTO) 1 % (0-1); EOSINOPHILS # (AUTO) 0.04 x10^3/uL (0-0.4); EOSINOPHILS % (AUTO) 1 % (1-7); LYMPHOCYTES # (AUTO) 0.76 x10^3/uL (1-3.4); LYMPHOCYTES % (AUTO) 17 % (22-44); MD NO; MEAN CORPUSCULAR HEMOGLOBIN 27.6 pg (27.5-34.5); MEAN CORPUSCULAR HGB CONC 33.7 g/dL (33.2-36.2); MEAN PLATELET VOLUME 9.4 fL (7.4-10.4); MONOCYTES # (AUTO) 0.43 x10^3/uL (0.2-0.8); MONOCYTES % (AUTO) 9 % (2-9); NEUTROPHILS # (AUTO) 3.28 x10^3/uL (1.8-6.8); NEUTROPHILS % (AUTO) 72 % (42-75); PLATELET COUNT 163 x10^3/uL (130-400); RED CELL DISTRIBUTION WIDTH 13.2 % (9.4-14.8)
[2017-12-09 05:44] LABS: ALBUMIN 4.5 g/dL (3.4-5.0); ANION GAP 10 mmol/L (5-15); CALCIUM 8.6 mg/dL (8.5-10.1); CHLORIDE 112 mmol/L (98-107)
[2017-12-09 05:47] LABS: ALANINE AMINOTRANSFERASE 13 U/L (12-78); ALKALINE PHOSPHATASE 16 U/L (45-117); BILIRUBIN,TOTAL 0.4 mg/dL (0.2-1.0); CREATININE 2.43 mg/dL (0.7-1.3); TOTAL PROTEIN 5.3 g/dL (6.4-8.2)
[2017-12-09] MEDS: ASPIRIN 81 MG TABLET EC PO SCH (06:13)
[2017-12-09] MEDS ORDERED: CALCIUM GLUCONATE 4.6 MEQ/10 ML IV PRN (07:00)
[2017-12-09] MEDS: INSULIN REGULAR 100 UNITS/ML, 3ML VIAL SQ-INSULIN SCH ×2 (07:00→11:00)
[2017-12-09] MEDS: INSULIN GLARGINE 100 UNITS/ML, PEN SQ-INSULIN SCH (08:21)
[2017-12-09] MEDS: DIPHENHYDRAMINE 25 MG CAPSULE PO PRN (08:22)
[2017-12-09] MEDS: PANTOPROZOLE 40MG TABLET PO SCH (08:22)
[2017-12-09] MEDS: TACROLIMUS 0.5 MG CAPSULE PO SCH (08:22)
[2017-12-09] MEDS: CALCIUM CITRATE 950 MG TABLET PO SCH (08:22)
[2017-12-09] MEDS: VALSARTAN 320 MG TABLET PO SCH (08:23)
[2017-12-09 08:29] VITALS: BP 129/77
[2017-12-09] MEDS: SODIUM CHLORIDE FLUSH 10ML SYR IVF SCH (09:00)
[2017-12-09] MEDS: ALBUMIN HUMAN 5% IV PRN (09:02)
== END 2017-12-09 15:13 | disposition home or self-care (01) | DRG 699 ==
LOC: 4WST 10:29
PROVIDERS: ADMIT Internal Medicine Nephrology; ATTEND Internal Medicine Nephrology
PROC: 6A551Z3 Pheresis of Plasma, Multiple (ICD-10-PCS; principal; 2017-12-07)
DX: T86.19 Other complication of kidney transplant (principal); N18.4 Chronic kidney disease, stage 4 (severe); Y83.0 Surgical operation with transplant of whole organ as the cause of abnormal reaction of the patient, or of later complication, without mention of misadventure at the time of the procedure; Y92.89 Other specified places as the place of occurrence of the external cause; E11.22 Type 2 diabetes mellitus with diabetic chronic kidney disease; D63.1 Anemia in chronic kidney disease; E78.5 Hyperlipidemia, unspecified; K21.9 Gastro-esophageal reflux disease without esophagitis; I25.10 Atherosclerotic heart disease of native coronary artery without angina pectoris; Z87.19 Personal history of other diseases of the digestive system; N26.9 Renal sclerosis, unspecified; Z86.73 Personal history of transient ischemic attack (TIA), and cerebral infarction without residual deficits; N25.0 Renal osteodystrophy; I12.9 Hypertensive chronic kidney disease with stage 1 through stage 4 chronic kidney disease, or unspecified chronic kidney disease; Z90.49 Acquired absence of other specified parts of digestive tract; Z82.49 Family history of ischemic heart disease and other diseases of the circulatory system; Z83.3 Family history of diabetes mellitus
CPT/HCPCS: 36415; 36514; 80053; 81001; 82330; 82570; 82962; 83735; 84100; 84156; 85025; G0378; J1815; J7507; P9045; J0610; J7512; J7517; Q0163

== ENCOUNTER 2017-12-18 09:00 | Inpatient (IN) | payer MEDICARE ==
[~2017-12-18] VITALS: Ht 177.8 cm; Wt 58.9 kg
[2017-12-18] MEDS ORDERED: SODIUM CHLORIDE FLUSH 10ML SYR IVF ONE ×2 (10:00→11:00)
[2017-12-18 10:31] LABS: BASOPHILS % (AUTO) 0 % (0-1); EOSINOPHILS % (AUTO) 0 % (1-7); LYMPHOCYTES # (AUTO) 0.56 x10^3/uL (1-3.4); LYMPHOCYTES % (AUTO) 9 % (22-44); MEAN CORPUSCULAR HEMOGLOBIN 27.2 pg (27.5-34.5); MEAN CORPUSCULAR HGB CONC 33.1 g/dL (33.2-36.2); MEAN PLATELET VOLUME 7.9 fL (7.4-10.4); MONOCYTES # (AUTO) 0.51 x10^3/uL (0.2-0.8); MONOCYTES % (AUTO) 8 % (2-9); NEUTROPHILS % (AUTO) 83 % (42-75); PLATELET COUNT 256 x10^3/uL (130-400); RED BLOOD COUNT 4.61 x10^6/uL (4.38-5.82); RED CELL DISTRIBUTION WIDTH 12.7 % (9.4-14.8)
[2017-12-18 10:32] LABS: MD NO
[2017-12-18 10:39] LABS: ALBUMIN 4.2 g/dL (3.4-5.0); ANION GAP 15 mmol/L (5-15); CALCIUM 8.7 mg/dL (8.5-10.1); CHLORIDE 89 mmol/L (98-107)
[2017-12-18 10:43] LABS: ALANINE AMINOTRANSFERASE 17 U/L (12-78); ALKALINE PHOSPHATASE 52 U/L (45-117); BILIRUBIN,TOTAL 0.9 mg/dL (0.2-1.0); CREATININE 3.26 mg/dL (0.7-1.3); TOTAL PROTEIN 6.7 g/dL (6.4-8.2)
[2017-12-18] MEDS ORDERED: CALCIUM CHLORIDE 10%, 10ML SYR IVPush ONE (11:00)
[2017-12-18] MEDS ORDERED: INSULIN REGULAR 100 UNITS/ML, 3ML VIAL IVPush ONE (11:00)
[2017-12-18] MEDS ORDERED: SODIUM POLY SULFONATE UDC 15 GM/60 ML PO ONE (11:00)
[2017-12-18] MEDS ORDERED: SODIUM CHLORIDE 0.9% 1,000ML IVBOLUS ONE (11:00)
[2017-12-18] MEDS ORDERED: DEXTROSE 50%, 50ML SYRINGE IVPush ONE (11:00)
[2017-12-18] MEDS ORDERED: SODIUM POLY SULFONATE UDC 15 GM/60 ML ONE (11:36)
[2017-12-18] MEDS ORDERED: CALCIUM CHLORIDE 10%, 10ML SYR ONE (11:36)
[2017-12-18] MEDS ORDERED: INSULIN REGULAR 100 UNITS/ML, 3ML VIAL ONE (11:37)
[2017-12-18] MEDS: INSULIN LISPRO 100 UNITS/ML, PEN SQ-INSULIN SCH ×3 (12:30→20:48)
[2017-12-18] MEDS ORDERED: ONDANSETRON 2MG/ML, 2ML IVPush PRN (12:30)
[2017-12-18] MEDS ORDERED: LABETALOL 5MG/ML, 20ML IVPush PRN (12:30)
[2017-12-18] MEDS ORDERED: PROMETHAZINE 25 MG/ML, 1ML IM PRN (12:30)
[2017-12-18] MEDS ORDERED: ACETAMINOPHEN 325 MG TABLET PO PRN (12:30)
[2017-12-18 13:19] VITALS: BP 112/70
[2017-12-18] MEDS ORDERED: SODIUM CHLORIDE 0.9% 1,000 ML IV SCH (13:30)
[2017-12-18] MEDS: HEPARIN 5,000 UNITS/ML, 1ML SQ SCH ×2 (13:52→20:30)
[2017-12-18 14:41] LABS: HEMOGLOBIN A1C 15.8 % (4.2-6.3)
[2017-12-18 15:47] LABS: ANION GAP 16 mmol/L (5-15); CALCIUM 9.2 mg/dL (8.5-10.1); CHLORIDE 97 mmol/L (98-107); CREATININE 3.18 mg/dL (0.7-1.3)
[2017-12-18] MEDS: SODIUM CHLORIDE 0.9% 1,000 ML IV SCH (15:59)
[2017-12-18 20:12] VITALS: BP 113/74
[2017-12-18] MEDS: PANTOPROZOLE 40MG TABLET PO SCH (20:47)
[2017-12-18] MEDS: ATORVASTATIN 10 MG TABLET PO SCH (20:47)
[2017-12-18] MEDS ORDERED: TACROLIMUS 0.5 MG CAPSULE PO SCH (21:00)
[2017-12-18] MEDS ORDERED: INSULIN GLARGINE 100 UNITS/ML, PEN SQ-INSULIN SCH ×2 (21:00)
[2017-12-19] MEDS: SODIUM CHLORIDE 0.9% 1,000 ML IV SCH ×3 (00:31→16:59)
[2017-12-19 02:58] VITALS: BP 128/77
[2017-12-19] MEDS: HEPARIN 5,000 UNITS/ML, 1ML SQ SCH ×3 (03:59→20:25)
[2017-12-19 05:38] LABS: BASOPHILS # (AUTO) 0.04 x10^3/uL (0-0.1); BASOPHILS % (AUTO) 1 % (0-1); EOSINOPHILS # (AUTO) 0.01 x10^3/uL (0-0.4); EOSINOPHILS % (AUTO) 0 % (1-7); LYMPHOCYTES # (AUTO) 0.72 x10^3/uL (1-3.4); LYMPHOCYTES % (AUTO) 13 % (22-44); MD NO; MEAN CORPUSCULAR HEMOGLOBIN 27.9 pg (27.5-34.5); MEAN CORPUSCULAR HGB CONC 33.8 g/dL (33.2-36.2); MEAN CORPUSCULAR VOLUME 82.6 fL (81-97); MEAN PLATELET VOLUME 8.5 fL (7.4-10.4); MONOCYTES # (AUTO) 0.45 x10^3/uL (0.2-0.8); MONOCYTES % (AUTO) 8 % (2-9); NEUTROPHILS # (AUTO) 4.46 x10^3/uL (1.8-6.8); NEUTROPHILS % (AUTO) 79 % (42-75); PLATELET COUNT 219 x10^3/uL (130-400); RED BLOOD COUNT 4.12 x10^6/uL (4.38-5.82); RED CELL DISTRIBUTION WIDTH 12.9 % (9.4-14.8)
[2017-12-19 05:47] LABS: ALBUMIN 3.5 g/dL (3.4-5.0); ANION GAP 12 mmol/L (5-15); CHLORIDE 105 mmol/L (98-107)
[2017-12-19 05:50] LABS: ALANINE AMINOTRANSFERASE 15 U/L (12-78); ALKALINE PHOSPHATASE 41 U/L (45-117); BILIRUBIN,TOTAL 0.6 mg/dL (0.2-1.0); CREATININE 2.44 mg/dL (0.7-1.3); TOTAL PROTEIN 5.6 g/dL (6.4-8.2)
[2017-12-19] MEDS: INSULIN LISPRO 100 UNITS/ML, PEN SQ-INSULIN SCH ×4 (07:00→20:25)
[2017-12-19 07:42] VITALS: BP 115/69
[2017-12-19] MEDS: AMLODIPINE 10 MG TAB PO SCH (09:00)
[2017-12-19] MEDS: TACROLIMUS 0.5 MG CAPSULE PO SCH ×2 (09:22→20:25)
[2017-12-19] MEDS: ASPIRIN 81 MG TABLET EC PO SCH (09:22)
[2017-12-19] MEDS: PANTOPROZOLE 40MG TABLET PO SCH ×2 (09:22→20:25)
[2017-12-19] MEDS: POTASSIUM CHLORIDE 20 MEQ TAB.ER.PRT PO SCH ×3 (09:22→16:51)
[2017-12-19] MEDS: CALCIUM CITRATE 950 MG TABLET PO SCH (09:22)
[2017-12-19] MEDS: INSULIN GLARGINE 100 UNITS/ML, PEN SQ-INSULIN SCH ×2 (09:23→20:25)
[2017-12-19 13:05] VITALS: BP 101/63
[2017-12-19 20:00] VITALS: BP 119/71
[2017-12-19] MEDS: ATORVASTATIN 10 MG TABLET PO SCH (20:25)
[2017-12-20 02:00] VITALS: BP 111/73
[2017-12-20] MEDS: HEPARIN 5,000 UNITS/ML, 1ML SQ SCH (03:26)
[2017-12-20 04:57] LABS: CALCIUM 8.1 mg/dL (8.5-10.1); CHLORIDE 108 mmol/L (98-107)
[2017-12-20 05:02] LABS: ALANINE AMINOTRANSFERASE 16 U/L (12-78); ALBUMIN 3.1 g/dL (3.4-5.0); ALKALINE PHOSPHATASE 38 U/L (45-117); ANION GAP 10 mmol/L (5-15); BILIRUBIN,TOTAL 0.6 mg/dL (0.2-1.0); CREATININE 2.07 mg/dL (0.7-1.3); TOTAL PROTEIN 5.1 g/dL (6.4-8.2)
[2017-12-20] MEDS: INSULIN LISPRO 100 UNITS/ML, PEN SQ-INSULIN SCH ×2 (07:00→11:55)
[2017-12-20 07:21] VITALS: BP 105/61
[2017-12-20] MEDS: ASPIRIN 81 MG TABLET EC PO SCH (08:10)
[2017-12-20] MEDS: AMLODIPINE 10 MG TAB PO SCH (08:10)
[2017-12-20] MEDS: INSULIN GLARGINE 100 UNITS/ML, PEN SQ-INSULIN SCH (08:10)
[2017-12-20] MEDS: CALCIUM CITRATE 950 MG TABLET PO SCH (08:10)
[2017-12-20] MEDS: PANTOPROZOLE 40MG TABLET PO SCH (08:11)
[2017-12-20] MEDS: TACROLIMUS 0.5 MG CAPSULE PO SCH (08:11)
[2017-12-20] MEDS ORDERED: INSU100I13 SQ-INSULIN (09:53)
== END 2017-12-20 12:17 | disposition home or self-care (01) | DRG 682 ==
LOC: ED 10:41 → EDIP 10:53 → 4WST 13:10
PROVIDERS: ADMIT Internal Medicine; ATTEND Internal Medicine
DX: N17.9 Acute kidney failure, unspecified (principal); E43 Unspecified severe protein-calorie malnutrition; E87.1 Hypo-osmolality and hyponatremia; E87.2 Acidosis; I12.0 Hypertensive chronic kidney disease with stage 5 chronic kidney disease or end stage renal disease; Z68.1 Body mass index [BMI] 19.9 or less, adult; D63.1 Anemia in chronic kidney disease; E11.22 Type 2 diabetes mellitus with diabetic chronic kidney disease; E11.65 Type 2 diabetes mellitus with hyperglycemia; E78.5 Hyperlipidemia, unspecified; E86.0 Dehydration; E87.5 Hyperkalemia; E87.6 Hypokalemia; I25.10 Atherosclerotic heart disease of native coronary artery without angina pectoris; K21.9 Gastro-esophageal reflux disease without esophagitis; N18.6 End stage renal disease; N25.0 Renal osteodystrophy; Z66 Do not resuscitate; Z79.4 Long term (current) use of insulin; Z86.73 Personal history of transient ischemic attack (TIA), and cerebral infarction without residual deficits; Z87.19 Personal history of other diseases of the digestive system; Z91.14 Patient's other noncompliance with medication regimen
CPT/HCPCS: 36415; 71045; 80048; 80053; 82947; 82962; 83036; 83605; 85025; 87040; 87497; 93005; 96374; 96375; G0378; J1644; J7507; J1815; J7030; J7512; J7517

== ENCOUNTER 2018-01-04 09:00 | Inpatient (IN) | payer MEDICARE ==
[~2018-01-04] VITALS: Ht 177.8 cm; Wt 62.6 kg
[~2018-01-04 09:00] MED LIST changes: +INSU100I13 SQ-INSULIN
[2018-01-04 12:56] LABS: BASOPHILS # (AUTO) 0.01 x10^3/uL (0-0.1); BASOPHILS % (AUTO) 0 % (0-1); EOSINOPHILS # (AUTO) 0.03 x10^3/uL (0-0.4); EOSINOPHILS % (AUTO) 1 % (1-7); LYMPHOCYTES # (AUTO) 0.58 x10^3/uL (1-3.4); LYMPHOCYTES % (AUTO) 11 % (22-44); MD NO; MEAN CORPUSCULAR HEMOGLOBIN 27.5 pg (27.5-34.5); MEAN CORPUSCULAR HGB CONC 33.2 g/dL (33.2-36.2); MEAN CORPUSCULAR VOLUME 82.6 fL (81-97); MEAN PLATELET VOLUME 7.9 fL (7.4-10.4); MONOCYTES # (AUTO) 0.35 x10^3/uL (0.2-0.8); MONOCYTES % (AUTO) 7 % (2-9); NEUTROPHILS % (AUTO) 81 % (42-75); PLATELET COUNT 203 x10^3/uL (130-400); RED BLOOD COUNT 3.83 x10^6/uL (4.38-5.82); RED CELL DISTRIBUTION WIDTH 14.2 % (9.4-14.8)
[2018-01-04 13:05] LABS: ALANINE AMINOTRANSFERASE 18 U/L (12-78); ANION GAP 7 mmol/L (5-15); CALCIUM 7.9 mg/dL (8.5-10.1); CHLORIDE 102 mmol/L (98-107); CREATININE 2.36 mg/dL (0.7-1.3)
[2018-01-04 13:08] LABS: ALKALINE PHOSPHATASE 76 U/L (45-117); BILIRUBIN,TOTAL 0.3 mg/dL (0.2-1.0)
[2018-01-04 13:13] VITALS: BP 104/64
[2018-01-04] MEDS: DIPHENHYDRAMINE 50 MG CAPSULE PO PRN (15:08)
[2018-01-04] MEDS ORDERED: INSULIN REGULAR 100 UNITS/ML, 3ML VIAL SQ-INSULIN SCH (16:00)
[2018-01-04] MEDS ORDERED: ACETAMINOPHEN 325 MG TABLET PO PRN ×2 (16:30→17:00)
[2018-01-04] MEDS: CALCIUM GLUCONATE 4.6 MEQ/10 ML IV PRN (16:36)
[2018-01-04] MEDS: ALBUMIN HUMAN 5% IV PRN (16:36)
[2018-01-04] MEDS ORDERED: LIDOCAINE/PRILOCAINE CRM W/TEG 5GM TP SCH (17:00)
[2018-01-04] MEDS ORDERED: ACETAMINOPHEN 650 MG SUPP PR PRN (17:00)
[2018-01-04] MEDS ORDERED: DIPHENHYDRAMINE 50 MG CAPSULE PO PRN (17:00)
[2018-01-04 17:29] LABS: CREATININE,URINE RANDOM 48.8 mg/dL
[2018-01-04 17:37] LABS: MICROSCOPIC AUTO
[2018-01-04 17:38] LABS: CULTURE INDICATED? NO
[2018-01-04] MEDS: TACROLIMUS 0.5 MG CAPSULE PO SCH (19:55)
[2018-01-04] MEDS: ATORVASTATIN 10 MG TABLET PO SCH (19:55)
[2018-01-04] MEDS: SODIUM CHLORIDE FLUSH 10ML SYR IVF SCH (19:56)
[2018-01-04] MEDS: PANTOPROZOLE 40MG TABLET PO SCH (19:56)
[2018-01-04 20:00] VITALS: BP 110/69
[2018-01-04] MEDS: INSULIN REGULAR 100 UNITS/ML, 3ML VIAL SQ-INSULIN SCH (20:52)
[2018-01-04] MEDS ORDERED: PANTOPROZOLE 40MG TABLET PO SCH (21:00)
[2018-01-04] MEDS ORDERED: ATORVASTATIN 10 MG TABLET PO SCH (21:00)
[2018-01-04] MEDS ORDERED: AMLODIPINE 5 MG TABLET PO SCH (21:00)
[2018-01-05 05:10] LABS: BASOPHILS # (AUTO) 0.01 x10^3/uL (0-0.1); BASOPHILS % (AUTO) 0 % (0-1); EOSINOPHILS # (AUTO) 0.02 x10^3/uL (0-0.4); EOSINOPHILS % (AUTO) 0 % (1-7); LYMPHOCYTES # (AUTO) 0.64 x10^3/uL (1-3.4); LYMPHOCYTES % (AUTO) 13 % (22-44); MD NO; MEAN CORPUSCULAR HGB CONC 33.9 g/dL (33.2-36.2); MEAN CORPUSCULAR VOLUME 82.7 fL (81-97); MONOCYTES # (AUTO) 0.37 x10^3/uL (0.2-0.8); MONOCYTES % (AUTO) 8 % (2-9); NEUTROPHILS # (AUTO) 3.94 x10^3/uL (1.8-6.8); NEUTROPHILS % (AUTO) 79 % (42-75); PLATELET COUNT 188 x10^3/uL (130-400); RED BLOOD COUNT 3.51 x10^6/uL (4.38-5.82)
[2018-01-05 05:17] LABS: ALBUMIN 3.5 g/dL (3.4-5.0); ANION GAP 7 mmol/L (5-15); CALCIUM 8.4 mg/dL (8.5-10.1); CHLORIDE 111 mmol/L (98-107)
[2018-01-05 05:21] LABS: ALANINE AMINOTRANSFERASE 12 U/L (12-78); ALKALINE PHOSPHATASE 25 U/L (45-117); BILIRUBIN,TOTAL 0.4 mg/dL (0.2-1.0); CREATININE 2.08 mg/dL (0.7-1.3); TOTAL PROTEIN 4.8 g/dL (6.4-8.2)
[2018-01-05] MEDS ORDERED: ASPIRIN 81 MG TABLET EC PO SCH (06:00)
[2018-01-05] MEDS: AMLODIPINE 10 MG TAB PO SCH (07:55)
[2018-01-05] MEDS: PANTOPROZOLE 40MG TABLET PO SCH ×2 (07:55→19:38)
[2018-01-05] MEDS: INSULIN REGULAR 100 UNITS/ML, 3ML VIAL SQ-INSULIN SCH ×4 (07:55→20:50)
[2018-01-05] MEDS: ASPIRIN 81 MG TABLET EC PO SCH (07:56)
[2018-01-05] MEDS: TACROLIMUS 0.5 MG CAPSULE PO SCH ×2 (07:56→19:38)
[2018-01-05] MEDS: VALSARTAN 320 MG TABLET PO SCH (07:56)
[2018-01-05] MEDS: CALCIUM CITRATE 950 MG TABLET PO SCH (07:56)
[2018-01-05] MEDS: SODIUM CHLORIDE FLUSH 10ML SYR IVF SCH ×2 (07:57→19:38)
[2018-01-05 08:00] VITALS: BP 144/79
[2018-01-05] MEDS ORDERED: INSULIN GLARGINE 100 UNITS/ML, PEN SQ-INSULIN SCH (09:00)
[2018-01-05] MEDS ORDERED: CALCIUM CITRATE 950 MG TABLET PO SCH (09:00)
[2018-01-05] MEDS ORDERED: AVANDIA HOMEMEDPO SCH (09:00)
[2018-01-05] MEDS: INSULIN GLARGINE 100 UNITS/ML, PEN SQ-INSULIN SCH (09:06)
[2018-01-05] MEDS: DIPHENHYDRAMINE 50 MG CAPSULE PO PRN (10:11)
[2018-01-05] MEDS: ALBUMIN HUMAN 5% IV PRN (11:05)
[2018-01-05] MEDS: CALCIUM GLUCONATE 4.6 MEQ/10 ML IV PRN (11:05)
[2018-01-05 13:48] VITALS: BP 123/74
[2018-01-05 19:30] VITALS: BP 109/52
[2018-01-05] MEDS: ATORVASTATIN 10 MG TABLET PO SCH (19:38)
[2018-01-06 05:54] LABS: BASOPHILS # (AUTO) 0.02 x10^3/uL (0-0.1); BASOPHILS % (AUTO) 0 % (0-1); EOSINOPHILS # (AUTO) 0.06 x10^3/uL (0-0.4); EOSINOPHILS % (AUTO) 1 % (1-7); LYMPHOCYTES # (AUTO) 0.93 x10^3/uL (1-3.4); LYMPHOCYTES % (AUTO) 18 % (22-44); MD NO; MEAN CORPUSCULAR HEMOGLOBIN 27.6 pg (27.5-34.5); MEAN CORPUSCULAR HGB CONC 33.2 g/dL (33.2-36.2); MEAN CORPUSCULAR VOLUME 83.3 fL (81-97); MEAN PLATELET VOLUME 8.1 fL (7.4-10.4); MONOCYTES # (AUTO) 0.41 x10^3/uL (0.2-0.8); MONOCYTES % (AUTO) 8 % (2-9); NEUTROPHILS # (AUTO) 3.83 x10^3/uL (1.8-6.8); NEUTROPHILS % (AUTO) 73 % (42-75); PLATELET COUNT 201 x10^3/uL (130-400); RED BLOOD COUNT 3.76 x10^6/uL (4.38-5.82); RED CELL DISTRIBUTION WIDTH 14.4 % (9.4-14.8)
[2018-01-06 06:06] LABS: ANION GAP 11 mmol/L (5-15); CALCIUM 8.6 mg/dL (8.5-10.1); CHLORIDE 110 mmol/L (98-107)
[2018-01-06 06:08] LABS: ALANINE AMINOTRANSFERASE 13 U/L (12-78); ALKALINE PHOSPHATASE 22 U/L (45-117); BILIRUBIN,TOTAL 0.4 mg/dL (0.2-1.0); CREATININE 2.09 mg/dL (0.7-1.3)
[2018-01-06] MEDS: TACROLIMUS 0.5 MG CAPSULE PO SCH (08:13)
[2018-01-06] MEDS: ASPIRIN 81 MG TABLET EC PO SCH (08:13)
[2018-01-06] MEDS: VALSARTAN 320 MG TABLET PO SCH (08:13)
[2018-01-06] MEDS: AMLODIPINE 10 MG TAB PO SCH (08:13)
[2018-01-06] MEDS: CALCIUM CITRATE 950 MG TABLET PO SCH (08:13)
[2018-01-06] MEDS: PANTOPROZOLE 40MG TABLET PO SCH (08:13)
[2018-01-06] MEDS: INSULIN GLARGINE 100 UNITS/ML, PEN SQ-INSULIN SCH (08:14)
[2018-01-06] MEDS: INSULIN REGULAR 100 UNITS/ML, 3ML VIAL SQ-INSULIN SCH ×2 (08:14→11:37)
[2018-01-06] MEDS: SODIUM CHLORIDE FLUSH 10ML SYR IVF SCH (08:25)
[2018-01-06 08:58] VITALS: BP 120/72
[2018-01-06] MEDS: DIPHENHYDRAMINE 50 MG CAPSULE PO PRN (09:33)
[2018-01-06] MEDS: CALCIUM GLUCONATE 4.6 MEQ/10 ML IV PRN (10:24)
[2018-01-06] MEDS: ALBUMIN HUMAN 5% IV PRN (10:24)
[2018-01-06 13:45] VITALS: BP 109/73
== END 2018-01-06 14:15 | disposition home or self-care (01) | DRG 698 ==
LOC: 4WST 11:50
PROVIDERS: ADMIT Internal Medicine Nephrology; ATTEND Internal Medicine Nephrology
PROC: 6A551Z3 Pheresis of Plasma, Multiple (ICD-10-PCS; principal; 2018-01-04)
DX: T86.19 Other complication of kidney transplant (principal); N17.0 Acute kidney failure with tubular necrosis; N18.5 Chronic kidney disease, stage 5; N26.9 Renal sclerosis, unspecified; E11.65 Type 2 diabetes mellitus with hyperglycemia; E11.22 Type 2 diabetes mellitus with diabetic chronic kidney disease; D63.1 Anemia in chronic kidney disease; I25.10 Atherosclerotic heart disease of native coronary artery without angina pectoris; K21.9 Gastro-esophageal reflux disease without esophagitis; M89.9 Disorder of bone, unspecified; E78.5 Hyperlipidemia, unspecified; Z86.73 Personal history of transient ischemic attack (TIA), and cerebral infarction without residual deficits; Z87.19 Personal history of other diseases of the digestive system; Z87.81 Personal history of (healed) traumatic fracture
CPT/HCPCS: 36415; 36514; 80053; 81001; 82330; 82570; 82947; 82962; 83735; 84100; 84156; 85025; G0378; J1815; J7507; P9045; J0610; J7512; J7517

== ENCOUNTER 2018-01-31 09:00 | Inpatient (IN) | payer MEDICARE ==
[~2018-01-31] VITALS: Ht 177.8 cm; Wt 66.3 kg
[2018-01-31 13:44] VITALS: BP 144/80
[2018-01-31 14:05] LABS: BASOPHILS # (AUTO) 0.01 x10^3/uL (0-0.1); BASOPHILS % (AUTO) 0 % (0-1); EOSINOPHILS # (AUTO) 0.04 x10^3/uL (0-0.4); EOSINOPHILS % (AUTO) 1 % (1-7); LYMPHOCYTES # (AUTO) 0.43 x10^3/uL (1-3.4); LYMPHOCYTES % (AUTO) 9 % (22-44); MD NO; MEAN CORPUSCULAR HEMOGLOBIN 27.1 pg (27.5-34.5); MEAN CORPUSCULAR HGB CONC 32.5 g/dL (33.2-36.2); MEAN CORPUSCULAR VOLUME 83.6 fL (81-97); MEAN PLATELET VOLUME 7.8 fL (7.4-10.4); MONOCYTES # (AUTO) 0.36 x10^3/uL (0.2-0.8); MONOCYTES % (AUTO) 8 % (2-9); NEUTROPHILS # (AUTO) 3.98 x10^3/uL (1.8-6.8); NEUTROPHILS % (AUTO) 83 % (42-75); PLATELET COUNT 228 x10^3/uL (130-400); RED BLOOD COUNT 3.66 x10^6/uL (4.38-5.82); RED CELL DISTRIBUTION WIDTH 14.3 % (9.4-14.8)
[2018-01-31 14:11] LABS: ALANINE AMINOTRANSFERASE 19 U/L (12-78); ALBUMIN 3.4 g/dL (3.4-5.0); ANION GAP 9 mmol/L (5-15); CALCIUM 8.3 mg/dL (8.5-10.1); CHLORIDE 103 mmol/L (98-107); CREATININE 2.65 mg/dL (0.7-1.3)
[2018-01-31 14:13] LABS: ALKALINE PHOSPHATASE 64 U/L (45-117); BILIRUBIN,TOTAL 0.3 mg/dL (0.2-1.0); TOTAL PROTEIN 6.6 g/dL (6.4-8.2)
[2018-01-31 14:18] LABS: MICROSCOPIC AUTO
[2018-01-31 14:23] LABS: CULTURE INDICATED? NO
[2018-01-31] MEDS ORDERED: ALBUMIN HUMAN 5%, 25G/500ML IV SCH (14:47)
[2018-01-31] MEDS: DIPHENHYDRAMINE 50 MG CAPSULE PO PRN (16:44)
[2018-01-31] MEDS: CALCIUM GLUCONATE 4.6 MEQ/10 ML IV SCH (16:49)
[2018-01-31] MEDS ORDERED: ACETAMINOPHEN 650 MG SUPP PR PRN (17:00)
[2018-01-31] MEDS ORDERED: ACETAMINOPHEN 325 MG TABLET PO PRN (17:00)
[2018-01-31] MEDS ORDERED: LIDOCAINE/PRILOCAINE CRM W/TEG 5GM TP SCH (17:00)
[2018-01-31 20:13] VITALS: BP 125/72
[2018-01-31] MEDS: PANTOPROZOLE 40MG TABLET PO SCH (21:58)
[2018-01-31] MEDS: ATORVASTATIN 10 MG TABLET PO SCH (21:58)
[2018-01-31] MEDS: TACROLIMUS 0.5 MG CAPSULE PO SCH (21:58)
[2018-01-31] MEDS: INSULIN REGULAR 100 UNITS/ML, 3ML VIAL SQ-INSULIN SCH (21:58)
[2018-01-31] MEDS: AMLODIPINE 5 MG TABLET PO SCH (21:58)
[2018-01-31] MEDS: SODIUM CHLORIDE FLUSH 10ML SYR IVF SCH (21:59)
[2018-02-01 04:58] VITALS: BP 118/64
[2018-02-01] MEDS: ASPIRIN 81 MG TABLET EC PO SCH (04:59)
[2018-02-01 06:03] LABS: CALCIUM 8.3 mg/dL (8.5-10.1); CHLORIDE 112 mmol/L (98-107)
[2018-02-01 06:09] LABS: ALANINE AMINOTRANSFERASE 12 U/L (12-78); ALBUMIN 4.1 g/dL (3.4-5.0); ALKALINE PHOSPHATASE 23 U/L (45-117); ANION GAP 10 mmol/L (5-15); BILIRUBIN,TOTAL 0.5 mg/dL (0.2-1.0); CREATININE 2.78 mg/dL (0.7-1.3); TOTAL PROTEIN 5.2 g/dL (6.4-8.2)
[2018-02-01 07:32] VITALS: BP 135/69
[2018-02-01] MEDS: INSULIN REGULAR 100 UNITS/ML, 3ML VIAL SQ-INSULIN SCH ×4 (08:09→21:00)
[2018-02-01] MEDS: SODIUM CHLORIDE FLUSH 10ML SYR IVF SCH ×2 (09:00→21:00)
[2018-02-01 09:11] LABS: BASOPHILS # (AUTO) 0.02 x10^3/uL (0-0.1); BASOPHILS % (AUTO) 0 % (0-1); EOSINOPHILS # (AUTO) 0.05 x10^3/uL (0-0.4); EOSINOPHILS % (AUTO) 1 % (1-7); LYMPHOCYTES # (AUTO) 0.73 x10^3/uL (1-3.4); LYMPHOCYTES % (AUTO) 14 % (22-44); MD NO; MEAN CORPUSCULAR HEMOGLOBIN 27.5 pg (27.5-34.5); MEAN CORPUSCULAR HGB CONC 32.8 g/dL (33.2-36.2); MEAN CORPUSCULAR VOLUME 83.8 fL (81-97); MEAN PLATELET VOLUME 7.9 fL (7.4-10.4); MONOCYTES # (AUTO) 0.44 x10^3/uL (0.2-0.8); MONOCYTES % (AUTO) 8 % (2-9); NEUTROPHILS # (AUTO) 4.08 x10^3/uL (1.8-6.8); NEUTROPHILS % (AUTO) 77 % (42-75); PLATELET COUNT 205 x10^3/uL (130-400); RED BLOOD COUNT 3.49 x10^6/uL (4.38-5.82); RED CELL DISTRIBUTION WIDTH 14.6 % (9.4-14.8)
[2018-02-01] MEDS ORDERED: ALBUMIN HUMAN 5%, 25G/500ML IV ONE (10:30)
[2018-02-01] MEDS: CALCIUM CITRATE 950 MG TABLET PO SCH (10:37)
[2018-02-01] MEDS: TACROLIMUS 0.5 MG CAPSULE PO SCH ×2 (10:37→20:04)
[2018-02-01] MEDS: PANTOPROZOLE 40MG TABLET PO SCH ×2 (10:38→20:04)
[2018-02-01] MEDS: VALSARTAN 320 MG TABLET PO SCH (10:38)
[2018-02-01] MEDS: INSULIN GLARGINE 100 UNITS/ML, PEN SQ-INSULIN SCH (11:04)
[2018-02-01] MEDS: DIPHENHYDRAMINE 50 MG CAPSULE PO PRN (11:20)
[2018-02-01] MEDS: CALCIUM GLUCONATE 4.6 MEQ/10 ML IV SCH (11:45)
[2018-02-01 15:42] VITALS: BP 119/66
[2018-02-01 19:42] VITALS: BP 119/67
[2018-02-01] MEDS: ATORVASTATIN 10 MG TABLET PO SCH (20:03)
[2018-02-01] MEDS: AMLODIPINE 5 MG TABLET PO SCH (20:04)
[2018-02-02] MEDS: ASPIRIN 81 MG TABLET EC PO SCH (06:00)
[2018-02-02] MEDS: INSULIN REGULAR 100 UNITS/ML, 3ML VIAL SQ-INSULIN SCH ×2 (07:00→13:53)
[2018-02-02 07:11] VITALS: BP 130/70
[2018-02-02 08:11] LABS: BASOPHILS # (AUTO) 0.02 x10^3/uL (0-0.1); BASOPHILS % (AUTO) 1 % (0-1); EOSINOPHILS # (AUTO) 0.07 x10^3/uL (0-0.4); EOSINOPHILS % (AUTO) 2 % (1-7); LYMPHOCYTES # (AUTO) 0.89 x10^3/uL (1-3.4); LYMPHOCYTES % (AUTO) 18 % (22-44); MD NO; MEAN CORPUSCULAR HEMOGLOBIN 27.3 pg (27.5-34.5); MEAN CORPUSCULAR HGB CONC 32.8 g/dL (33.2-36.2); MEAN CORPUSCULAR VOLUME 83.2 fL (81-97); MEAN PLATELET VOLUME 7.7 fL (7.4-10.4); MONOCYTES # (AUTO) 0.56 x10^3/uL (0.2-0.8); MONOCYTES % (AUTO) 11 % (2-9); NEUTROPHILS # (AUTO) 3.49 x10^3/uL (1.8-6.8); NEUTROPHILS % (AUTO) 69 % (42-75); PLATELET COUNT 219 x10^3/uL (130-400); RED BLOOD COUNT 3.86 x10^6/uL (4.38-5.82); RED CELL DISTRIBUTION WIDTH 14.6 % (9.4-14.8)
[2018-02-02 08:21] LABS: ALANINE AMINOTRANSFERASE 12 U/L (12-78); ALBUMIN 4.4 g/dL (3.4-5.0); ANION GAP 11 mmol/L (5-15); CALCIUM 8.4 mg/dL (8.5-10.1); CHLORIDE 115 mmol/L (98-107); CREATININE 2.31 mg/dL (0.7-1.3)
[2018-02-02 08:24] LABS: ALKALINE PHOSPHATASE 17 U/L (45-117); BILIRUBIN,TOTAL 0.5 mg/dL (0.2-1.0); TOTAL PROTEIN 5.3 g/dL (6.4-8.2)
[2018-02-02] MEDS: PANTOPROZOLE 40MG TABLET PO SCH (08:42)
[2018-02-02] MEDS: DIPHENHYDRAMINE 50 MG CAPSULE PO PRN (08:42)
[2018-02-02] MEDS: TACROLIMUS 0.5 MG CAPSULE PO SCH (08:42)
[2018-02-02] MEDS: VALSARTAN 320 MG TABLET PO SCH (08:43)
[2018-02-02] MEDS: INSULIN GLARGINE 100 UNITS/ML, PEN SQ-INSULIN SCH (08:44)
[2018-02-02] MEDS: SODIUM CHLORIDE FLUSH 10ML SYR IVF SCH (09:00)
[2018-02-02] MEDS: CALCIUM CITRATE 950 MG TABLET PO SCH (09:00)
[2018-02-02] MEDS ORDERED: ALBUMIN HUMAN 5%, 25G/500ML IV SCH (09:00)
[2018-02-02] MEDS: CALCIUM GLUCONATE 4.6 MEQ/10 ML IV SCH (09:10)
[2018-02-02 14:00] VITALS: BP 128/67
== END 2018-02-02 15:46 | disposition home or self-care (01) | DRG 682 ==
LOC: 4WST 12:34
PROVIDERS: ADMIT Internal Medicine Nephrology; ATTEND Internal Medicine Nephrology
PROC: 6A551Z3 Pheresis of Plasma, Multiple (ICD-10-PCS; principal; 2018-01-31)
DX: I12.9 Hypertensive chronic kidney disease with stage 1 through stage 4 chronic kidney disease, or unspecified chronic kidney disease (principal); K22.6 Gastro-esophageal laceration-hemorrhage syndrome; E46 Unspecified protein-calorie malnutrition; N25.81 Secondary hyperparathyroidism of renal origin; Z94.0 Kidney transplant status; N18.3 Chronic kidney disease, stage 3 (moderate); D63.1 Anemia in chronic kidney disease; E11.22 Type 2 diabetes mellitus with diabetic chronic kidney disease; E78.5 Hyperlipidemia, unspecified; I25.10 Atherosclerotic heart disease of native coronary artery without angina pectoris; K21.9 Gastro-esophageal reflux disease without esophagitis; M89.9 Disorder of bone, unspecified; Z82.49 Family history of ischemic heart disease and other diseases of the circulatory system; Z82.5 Family history of asthma and other chronic lower respiratory diseases; Z83.3 Family history of diabetes mellitus; Z86.73 Personal history of transient ischemic attack (TIA), and cerebral infarction without residual deficits; Z87.19 Personal history of other diseases of the digestive system; T45.1X5A Adverse effect of antineoplastic and immunosuppressive drugs, initial encounter; Y92.89 Other specified places as the place of occurrence of the external cause; Z68.21 Body mass index [BMI] 21.0-21.9, adult; Z79.82 Long term (current) use of aspirin; Z79.899 Other long term (current) drug therapy
CPT/HCPCS: 36415; 80053; 81001; 82330; 82570; 82962; 83735; 84100; 84156; 85025; G0378; J1815; J7507; P9045; J0610; J7512; J7517

== ENCOUNTER 2018-04-05 09:00 | Inpatient (IN) | payer MEDICARE ==
[~2018-04-05] VITALS: Ht 177.8 cm; Wt 68.2 kg
[~2018-04-05 09:00] MED LIST changes: -AMLO10TA6 PO; +AMLO10TA8 PO
[2018-04-05 14:00] VITALS: BP 131/75
[2018-04-05 14:50] LABS: BASOPHILS # (AUTO) 0.01 x10^3/uL (0-0.1); BASOPHILS % (AUTO) 0 % (0-1); EOSINOPHILS # (AUTO) 0.02 x10^3/uL (0-0.4); EOSINOPHILS % (AUTO) 0 % (1-7); LYMPHOCYTES # (AUTO) 0.46 x10^3/uL (1-3.4); LYMPHOCYTES % (AUTO) 9 % (22-44); MD NO; MEAN CORPUSCULAR HEMOGLOBIN 27.1 pg (27.5-34.5); MEAN CORPUSCULAR HGB CONC 32.4 g/dL (33.2-36.2); MEAN CORPUSCULAR VOLUME 83.5 fL (81-97); MEAN PLATELET VOLUME 7.6 fL (7.4-10.4); MONOCYTES # (AUTO) 0.42 x10^3/uL (0.2-0.8); MONOCYTES % (AUTO) 9 % (2-9); NEUTROPHILS # (AUTO) 4.04 x10^3/uL (1.8-6.8); NEUTROPHILS % (AUTO) 82 % (42-75); PLATELET COUNT 204 x10^3/uL (130-400); RED BLOOD COUNT 3.68 x10^6/uL (4.38-5.82); RED CELL DISTRIBUTION WIDTH 14.5 % (9.4-14.8)
[2018-04-05 15:05] LABS: ALBUMIN 3.3 g/dL (3.4-5.0); CHLORIDE 104 mmol/L (98-107)
[2018-04-05 15:13] LABS: ALANINE AMINOTRANSFERASE 16 U/L (12-78); ALKALINE PHOSPHATASE 60 U/L (45-117); ANION GAP 8 mmol/L (5-15); BILIRUBIN,TOTAL 0.3 mg/dL (0.2-1.0); CALCIUM 8.4 mg/dL (8.5-10.1); CREATININE 3.48 mg/dL (0.7-1.3); TOTAL PROTEIN 6.2 g/dL (6.4-8.2)
[2018-04-05] MEDS ORDERED: ALBUMIN HUMAN 5%, 25G/500ML IV ONE ×2 (16:00)
[2018-04-05] MEDS ORDERED: CALCIUM GLUCONATE 4.6 MEQ/10 ML IV ONE (16:00)
[2018-04-05] MEDS ORDERED: DIPHENHYDRAMINE 50 MG CAPSULE PO PRN (17:00)
[2018-04-05] MEDS ORDERED: ACETAMINOPHEN 325 MG TABLET PO PRN (19:30)
[2018-04-05] MEDS ORDERED: LIDOCAINE/PRILOCAINE CRM W/TEG 5GM TP SCH (19:30)
[2018-04-05] MEDS ORDERED: ACETAMINOPHEN 650 MG SUPP PR PRN (19:30)
[2018-04-05 19:46] VITALS: BP 123/62
[2018-04-05] MEDS: SODIUM CHLORIDE FLUSH 10ML SYR IVF SCH (20:07)
[2018-04-05] MEDS: AMLODIPINE 5 MG TABLET PO SCH (20:20)
[2018-04-05] MEDS: PANTOPROZOLE 40MG TABLET PO SCH (20:20)
[2018-04-05] MEDS: ATORVASTATIN 10 MG TABLET PO SCH (20:21)
[2018-04-05] MEDS: TACROLIMUS 0.5 MG CAPSULE PO SCH (20:21)
[2018-04-05] MEDS: INSULIN REGULAR 100 UNITS/ML, 3ML VIAL SQ-INSULIN SCH (21:19)
[2018-04-05 22:13] LABS: MICROSCOPIC AUTO
[2018-04-05 22:41] LABS: CREATININE,URINE RANDOM 33.5 mg/dL
[2018-04-06 00:48] VITALS: BP 117/67
[2018-04-06] MEDS: ASPIRIN 81 MG TABLET EC PO SCH (05:54)
[2018-04-06] MEDS: INSULIN REGULAR 100 UNITS/ML, 3ML VIAL SQ-INSULIN SCH ×4 (07:00→21:25)
[2018-04-06 08:25] VITALS: BP 130/71
[2018-04-06] MEDS: SODIUM CHLORIDE FLUSH 10ML SYR IVF SCH ×2 (08:27→21:28)
[2018-04-06] MEDS: PANTOPROZOLE 40MG TABLET PO SCH ×2 (08:28→21:25)
[2018-04-06] MEDS: CALCIUM CITRATE 950 MG TABLET PO SCH (08:28)
[2018-04-06] MEDS: TACROLIMUS 0.5 MG CAPSULE PO SCH ×2 (08:29→21:27)
[2018-04-06] MEDS: VALSARTAN 320 MG TABLET PO SCH (08:29)
[2018-04-06] MEDS: INSULIN GLARGINE 100 UNITS/ML, PEN SQ-INSULIN SCH (08:30)
[2018-04-06 11:27] LABS: BASOPHILS # (AUTO) 0.01 x10^3/uL (0-0.1); BASOPHILS % (AUTO) 0 % (0-1); EOSINOPHILS # (AUTO) 0.03 x10^3/uL (0-0.4); EOSINOPHILS % (AUTO) 1 % (1-7); LYMPHOCYTES % (AUTO) 15 % (22-44); MD NO; MEAN CORPUSCULAR HEMOGLOBIN 27.7 pg (27.5-34.5); MEAN CORPUSCULAR HGB CONC 33.2 g/dL (33.2-36.2); MEAN CORPUSCULAR VOLUME 83.4 fL (81-97); MEAN PLATELET VOLUME 7.6 fL (7.4-10.4); MONOCYTES # (AUTO) 0.45 x10^3/uL (0.2-0.8); MONOCYTES % (AUTO) 10 % (2-9); NEUTROPHILS # (AUTO) 3.55 x10^3/uL (1.8-6.8); NEUTROPHILS % (AUTO) 75 % (42-75); PLATELET COUNT 191 x10^3/uL (130-400); RED BLOOD COUNT 3.48 x10^6/uL (4.38-5.82); RED CELL DISTRIBUTION WIDTH 14.8 % (9.4-14.8)
[2018-04-06 11:38] LABS: ALANINE AMINOTRANSFERASE 11 U/L (12-78); ALBUMIN 3.7 g/dL (3.4-5.0); ANION GAP 9 mmol/L (5-15); CALCIUM 8.2 mg/dL (8.5-10.1); CHLORIDE 111 mmol/L (98-107); CREATININE 3.14 mg/dL (0.7-1.3)
[2018-04-06 11:40] LABS: ALKALINE PHOSPHATASE 25 U/L (45-117); BILIRUBIN,TOTAL 0.4 mg/dL (0.2-1.0); TOTAL PROTEIN 4.8 g/dL (6.4-8.2)
[2018-04-06] MEDS: DIPHENHYDRAMINE 50 MG CAPSULE PO PRN (12:46)
[2018-04-06 14:00] VITALS: BP 126/72
[2018-04-06] MEDS ORDERED: ALBUMIN HUMAN 5%, 25G/500ML ONE (14:21)
[2018-04-06] MEDS ORDERED: CALCIUM GLUCONATE 4.6 MEQ/10 ML ONE ×3 (14:21→14:28)
[2018-04-06] MEDS ORDERED: CALCIUM GLUCONATE 4.6 MEQ/10 ML IV ONE ×2 (14:30)
[2018-04-06] MEDS: ALBUMIN HUMAN 5% IV SCH (16:34)
[2018-04-06 18:46] VITALS: BP 140/81
[2018-04-06] MEDS: ATORVASTATIN 10 MG TABLET PO SCH (21:25)
[2018-04-06] MEDS: AMLODIPINE 5 MG TABLET PO SCH (21:26)
[2018-04-07] MEDS: ASPIRIN 81 MG TABLET EC PO SCH (06:07)
[2018-04-07 06:17] LABS: BASOPHILS # (AUTO) 0.02 x10^3/uL (0-0.1); BASOPHILS % (AUTO) 0 % (0-1); EOSINOPHILS # (AUTO) 0.07 x10^3/uL (0-0.4); EOSINOPHILS % (AUTO) 1 % (1-7); LYMPHOCYTES # (AUTO) 0.85 x10^3/uL (1-3.4); LYMPHOCYTES % (AUTO) 17 % (22-44); MD NO; MEAN CORPUSCULAR HEMOGLOBIN 27.7 pg (27.5-34.5); MEAN CORPUSCULAR HGB CONC 33.2 g/dL (33.2-36.2); MEAN CORPUSCULAR VOLUME 83.4 fL (81-97); MEAN PLATELET VOLUME 8.1 fL (7.4-10.4); MONOCYTES # (AUTO) 0.43 x10^3/uL (0.2-0.8); MONOCYTES % (AUTO) 9 % (2-9); NEUTROPHILS # (AUTO) 3.51 x10^3/uL (1.8-6.8); NEUTROPHILS % (AUTO) 72 % (42-75); PLATELET COUNT 182 x10^3/uL (130-400); RED BLOOD COUNT 3.69 x10^6/uL (4.38-5.82); RED CELL DISTRIBUTION WIDTH 14.7 % (9.4-14.8)
[2018-04-07 06:22] LABS: ALANINE AMINOTRANSFERASE 11 U/L (12-78); ALBUMIN 4.3 g/dL (3.4-5.0); ANION GAP 8 mmol/L (5-15); CALCIUM 8.2 mg/dL (8.5-10.1); CHLORIDE 115 mmol/L (98-107)
[2018-04-07 06:25] LABS: ALKALINE PHOSPHATASE 16 U/L (45-117); BILIRUBIN,TOTAL 0.6 mg/dL (0.2-1.0); CREATININE 2.82 mg/dL (0.7-1.3); TOTAL PROTEIN 5.3 g/dL (6.4-8.2)
[2018-04-07 07:56] VITALS: BP 131/68
[2018-04-07] MEDS: INSULIN REGULAR 100 UNITS/ML, 3ML VIAL SQ-INSULIN SCH ×2 (08:06→13:28)
[2018-04-07] MEDS: SODIUM CHLORIDE FLUSH 10ML SYR IVF SCH (09:00)
[2018-04-07] MEDS ORDERED: CALCIUM GLUCONATE 4.6 MEQ/10 ML IV ONE (09:00)
[2018-04-07] MEDS: VALSARTAN 320 MG TABLET PO SCH (09:15)
[2018-04-07] MEDS: CALCIUM CITRATE 950 MG TABLET PO SCH (09:15)
[2018-04-07] MEDS: TACROLIMUS 0.5 MG CAPSULE PO SCH (09:15)
[2018-04-07] MEDS: PANTOPROZOLE 40MG TABLET PO SCH (09:16)
[2018-04-07] MEDS: DIPHENHYDRAMINE 50 MG CAPSULE PO PRN (10:01)
[2018-04-07] MEDS: INSULIN GLARGINE 100 UNITS/ML, PEN SQ-INSULIN SCH (10:06)
[2018-04-07] MEDS ORDERED: FUROSEMIDE 40 MG TABLET PO PRN (11:00)
[2018-04-07] MEDS: ALBUMIN HUMAN 5% IV SCH (11:35)
[2018-04-07 13:21] LABS: MICROSCOPIC AUTO
== END 2018-04-07 15:22 | disposition home or self-care (01) | DRG 698 ==
LOC: 4WST 13:23
PROVIDERS: ADMIT Internal Medicine Nephrology; ATTEND Internal Medicine Nephrology
PROC: 6A551Z3 Pheresis of Plasma, Multiple (ICD-10-PCS; principal; 2018-04-05)
DX: T86.19 Other complication of kidney transplant (principal); N17.0 Acute kidney failure with tubular necrosis; E46 Unspecified protein-calorie malnutrition; I12.0 Hypertensive chronic kidney disease with stage 5 chronic kidney disease or end stage renal disease; N25.81 Secondary hyperparathyroidism of renal origin; Z94.0 Kidney transplant status; N18.3 Chronic kidney disease, stage 3 (moderate); I25.10 Atherosclerotic heart disease of native coronary artery without angina pectoris; E11.22 Type 2 diabetes mellitus with diabetic chronic kidney disease; K21.9 Gastro-esophageal reflux disease without esophagitis; T45.1X5A Adverse effect of antineoplastic and immunosuppressive drugs, initial encounter; D63.1 Anemia in chronic kidney disease; Y83.0 Surgical operation with transplant of whole organ as the cause of abnormal reaction of the patient, or of later complication, without mention of misadventure at the time of the procedure; E78.5 Hyperlipidemia, unspecified; Z99.2 Dependence on renal dialysis; Z87.441 Personal history of nephrotic syndrome; Z87.19 Personal history of other diseases of the digestive system; Z86.73 Personal history of transient ischemic attack (TIA), and cerebral infarction without residual deficits; Z79.899 Other long term (current) drug therapy; Z90.49 Acquired absence of other specified parts of digestive tract; Z87.81 Personal history of (healed) traumatic fracture; Z68.21 Body mass index [BMI] 21.0-21.9, adult; Y92.89 Other specified places as the place of occurrence of the external cause
CPT/HCPCS: 36415; 36514; 80053; 81001; 82306; 82330; 82570; 82962; 83735; 83970; 84100; 84156; 84550; 85025; G0378; J1815; J7507; P9045; J0610; J7512; J7517

== ENCOUNTER 2018-05-03 09:00 | Inpatient (IN) | payer MEDICARE ==
[~2018-05-03] VITALS: Ht 177.8 cm; Wt 72.4 kg
[2018-05-03] MEDS ORDERED: LIDOCAINE/PRILOCAINE CRM W/TEG 5GM TP SCH (11:30)
[2018-05-03] MEDS ORDERED: ACETAMINOPHEN 325 MG TABLET PO PRN (12:00)
[2018-05-03] MEDS ORDERED: ACETAMINOPHEN 650 MG SUPP PR PRN (12:00)
[2018-05-03] MEDS ORDERED: PLEASE ENTER HEIGHT AND WEIGHT MC SCH (12:30)
[2018-05-03] MEDS ORDERED: ALBUMIN HUMAN 5%, 25G/500ML ONE (12:36)
[2018-05-03 13:01] VITALS: BP 127/68
[2018-05-03 13:46] LABS: BASOPHILS # (AUTO) 0.01 x10^3/uL (0-0.1); BASOPHILS % (AUTO) 0 % (0-1); EOSINOPHILS % (AUTO) 0 % (1-7); LYMPHOCYTES # (AUTO) 0.31 x10^3/uL (1-3.4); LYMPHOCYTES % (AUTO) 5 % (22-44); MD NO; MEAN CORPUSCULAR HEMOGLOBIN 27.4 pg (27.5-34.5); MEAN CORPUSCULAR HGB CONC 32.7 g/dL (33.2-36.2); MEAN CORPUSCULAR VOLUME 83.6 fL (81-97); MEAN PLATELET VOLUME 7.8 fL (7.4-10.4); MONOCYTES # (AUTO) 0.48 x10^3/uL (0.2-0.8); MONOCYTES % (AUTO) 7 % (2-9); NEUTROPHILS % (AUTO) 88 % (42-75); PLATELET COUNT 198 x10^3/uL (130-400); RED BLOOD COUNT 3.48 x10^6/uL (4.38-5.82); RED CELL DISTRIBUTION WIDTH 14.5 % (9.4-14.8)
[2018-05-03] MEDS ORDERED: ALBUMIN HUMAN 5% IV SCH (14:00)
[2018-05-03] MEDS ORDERED: CALCIUM GLUCONATE 4.6 MEQ/10 ML IV ONE (14:30)
[2018-05-03] MEDS: DIPHENHYDRAMINE 50 MG CAPSULE PO PRN (14:32)
[2018-05-03 15:00] LABS: CHLORIDE 101 mmol/L (98-107)
[2018-05-03 15:16] LABS: ALANINE AMINOTRANSFERASE 16 U/L (12-78); ALBUMIN 3.4 g/dL (3.4-5.0); ALKALINE PHOSPHATASE 62 U/L (45-117); ANION GAP 9 mmol/L (5-15); CALCIUM 8.3 mg/dL (8.5-10.1); CREATININE 3.44 mg/dL (0.7-1.3); TOTAL PROTEIN 6.4 g/dL (6.4-8.2)
[2018-05-03] MEDS: INSULIN REGULAR 100 UNITS/ML, 3ML VIAL SQ-INSULIN SCH ×2 (18:13→21:20)
[2018-05-03 19:45] VITALS: BP 124/66
[2018-05-03 20:13] LABS: MICROSCOPIC AUTO
[2018-05-03 20:19] LABS: CREATININE,URINE RANDOM 31.4 mg/dL
[2018-05-03] MEDS: AMLODIPINE 5 MG TABLET PO SCH (21:18)
[2018-05-03] MEDS: PANTOPROZOLE 40MG TABLET PO SCH (21:18)
[2018-05-03] MEDS: TACROLIMUS 0.5 MG CAPSULE PO SCH (21:18)
[2018-05-03] MEDS: ATORVASTATIN 10 MG TABLET PO SCH (21:19)
[2018-05-03] MEDS: SODIUM CHLORIDE FLUSH 10ML SYR IVF SCH (21:20)
[2018-05-04 02:00] VITALS: BP 130/54
[2018-05-04] MEDS: ASPIRIN 81 MG TABLET EC PO SCH (05:49)
[2018-05-04] MEDS: INSULIN REGULAR 100 UNITS/ML, 3ML VIAL SQ-INSULIN SCH ×4 (07:00→21:43)
[2018-05-04 07:39] VITALS: BP 110/63
[2018-05-04] MEDS: VALSARTAN 320 MG TABLET PO SCH (08:11)
[2018-05-04] MEDS: PANTOPROZOLE 40MG TABLET PO SCH ×2 (08:11→21:43)
[2018-05-04] MEDS: CALCIUM CITRATE 950 MG TABLET PO SCH (08:11)
[2018-05-04] MEDS: TACROLIMUS 0.5 MG CAPSULE PO SCH ×2 (08:11→21:43)
[2018-05-04] MEDS: SODIUM CHLORIDE FLUSH 10ML SYR IVF SCH ×2 (09:00→21:00)
[2018-05-04 09:17] LABS: BASOPHILS # (AUTO) 0.01 x10^3/uL (0-0.1); BASOPHILS % (AUTO) 0 % (0-1); EOSINOPHILS # (AUTO) 0.04 x10^3/uL (0-0.4); EOSINOPHILS % (AUTO) 1 % (1-7); LYMPHOCYTES # (AUTO) 0.57 x10^3/uL (1-3.4); LYMPHOCYTES % (AUTO) 12 % (22-44); MD NO; MEAN CORPUSCULAR HEMOGLOBIN 27.2 pg (27.5-34.5); MEAN CORPUSCULAR HGB CONC 32.3 g/dL (33.2-36.2); MEAN CORPUSCULAR VOLUME 84.1 fL (81-97); MEAN PLATELET VOLUME 7.8 fL (7.4-10.4); MONOCYTES # (AUTO) 0.53 x10^3/uL (0.2-0.8); MONOCYTES % (AUTO) 11 % (2-9); NEUTROPHILS # (AUTO) 3.69 x10^3/uL (1.8-6.8); NEUTROPHILS % (AUTO) 76 % (42-75); PLATELET COUNT 170 x10^3/uL (130-400); RED BLOOD COUNT 3.26 x10^6/uL (4.38-5.82); RED CELL DISTRIBUTION WIDTH 14.5 % (9.4-14.8)
[2018-05-04 09:22] LABS: ALANINE AMINOTRANSFERASE 9 U/L (12-78); ALBUMIN 3.7 g/dL (3.4-5.0); ANION GAP 8 mmol/L (5-15); CALCIUM 7.7 mg/dL (8.5-10.1); CHLORIDE 110 mmol/L (98-107); CREATININE 2.99 mg/dL (0.7-1.3)
[2018-05-04 09:25] LABS: ALKALINE PHOSPHATASE 24 U/L (45-117); BILIRUBIN,TOTAL 0.7 mg/dL (0.2-1.0); TOTAL PROTEIN 5.1 g/dL (6.4-8.2)
[2018-05-04] MEDS ORDERED: FUROSEMIDE 40 MG TABLET PO PRN (11:00)
[2018-05-04] MEDS: INSULIN GLARGINE 100 UNITS/ML, PEN SQ-INSULIN SCH (12:42)
[2018-05-04 13:02] LABS: MICROSCOPIC AUTO
[2018-05-04] MEDS ORDERED: ALBUMIN HUMAN 5%, 25G/500ML IV ONE (13:30)
[2018-05-04 13:41] VITALS: BP 131/53
[2018-05-04] MEDS: DIPHENHYDRAMINE 50 MG CAPSULE PO PRN (13:56)
[2018-05-04] MEDS ORDERED: CALCIUM CHLORIDE 13.6 MEQ/10 ML IV ONE (14:00)
[2018-05-04] MEDS ORDERED: CALCIUM GLUCONATE 4.6 MEQ/10 ML IV ONE ×2 (14:00)
[2018-05-04 19:32] VITALS: BP 131/64
[2018-05-04] MEDS: AMLODIPINE 5 MG TABLET PO SCH (21:43)
[2018-05-04] MEDS: ATORVASTATIN 10 MG TABLET PO SCH (21:43)
[2018-05-05 02:00] VITALS: BP 127/61
[2018-05-05 05:38] LABS: BASOPHILS # (AUTO) 0.01 x10^3/uL (0-0.1); BASOPHILS % (AUTO) 0 % (0-1); EOSINOPHILS # (AUTO) 0.03 x10^3/uL (0-0.4); EOSINOPHILS % (AUTO) 1 % (1-7); LYMPHOCYTES # (AUTO) 0.63 x10^3/uL (1-3.4); LYMPHOCYTES % (AUTO) 16 % (22-44); MD NO; MEAN CORPUSCULAR HEMOGLOBIN 28.2 pg (27.5-34.5); MEAN CORPUSCULAR HGB CONC 34.2 g/dL (33.2-36.2); MEAN CORPUSCULAR VOLUME 82.5 fL (81-97); MEAN PLATELET VOLUME 8.2 fL (7.4-10.4); MONOCYTES # (AUTO) 0.42 x10^3/uL (0.2-0.8); MONOCYTES % (AUTO) 11 % (2-9); NEUTROPHILS # (AUTO) 2.93 x10^3/uL (1.8-6.8); NEUTROPHILS % (AUTO) 73 % (42-75); PLATELET COUNT 175 x10^3/uL (130-400); RED BLOOD COUNT 3.25 x10^6/uL (4.38-5.82); RED CELL DISTRIBUTION WIDTH 14.8 % (9.4-14.8)
[2018-05-05 05:40] LABS: ANION GAP 6 mmol/L (5-15); CALCIUM 8.2 mg/dL (8.5-10.1); CHLORIDE 115 mmol/L (98-107)
[2018-05-05 05:46] LABS: ALANINE AMINOTRANSFERASE 9 U/L (12-78); ALKALINE PHOSPHATASE 16 U/L (45-117); BILIRUBIN,TOTAL 0.8 mg/dL (0.2-1.0)
[2018-05-05] MEDS: INSULIN REGULAR 100 UNITS/ML, 3ML VIAL SQ-INSULIN SCH ×2 (07:00→12:16)
[2018-05-05] MEDS: DIPHENHYDRAMINE 50 MG CAPSULE PO PRN (07:54)
[2018-05-05 07:57] VITALS: BP 118/68
[2018-05-05] MEDS ORDERED: ALBUMIN HUMAN 5% IV SCH (09:00)
[2018-05-05] MEDS: SODIUM CHLORIDE FLUSH 10ML SYR IVF SCH (09:00)
[2018-05-05] MEDS ORDERED: CALCIUM GLUCONATE 4.6 MEQ/10 ML IV ONE (09:00)
[2018-05-05] MEDS: ASPIRIN 81 MG TABLET EC PO SCH (09:00)
[2018-05-05] MEDS: INSULIN GLARGINE 100 UNITS/ML, PEN SQ-INSULIN SCH (12:16)
[2018-05-05] MEDS: TACROLIMUS 0.5 MG CAPSULE PO SCH (13:35)
[2018-05-05] MEDS: VALSARTAN 320 MG TABLET PO SCH (13:35)
[2018-05-05] MEDS: CALCIUM CITRATE 950 MG TABLET PO SCH (13:35)
[2018-05-05] MEDS: PANTOPROZOLE 40MG TABLET PO SCH (13:35)
== END 2018-05-05 15:24 | disposition home or self-care (01) | DRG 698 ==
LOC: 4WST 10:30
PROVIDERS: ADMIT Internal Medicine Nephrology; ATTEND Internal Medicine Nephrology
PROC: 6A551Z3 Pheresis of Plasma, Multiple (ICD-10-PCS; principal; 2018-05-03)
DX: T86.19 Other complication of kidney transplant (principal); K22.6 Gastro-esophageal laceration-hemorrhage syndrome; E46 Unspecified protein-calorie malnutrition; N25.81 Secondary hyperparathyroidism of renal origin; N18.3 Chronic kidney disease, stage 3 (moderate); D63.1 Anemia in chronic kidney disease; E78.5 Hyperlipidemia, unspecified; Y83.0 Surgical operation with transplant of whole organ as the cause of abnormal reaction of the patient, or of later complication, without mention of misadventure at the time of the procedure; I25.10 Atherosclerotic heart disease of native coronary artery without angina pectoris; K21.9 Gastro-esophageal reflux disease without esophagitis; M89.9 Disorder of bone, unspecified; I12.9 Hypertensive chronic kidney disease with stage 1 through stage 4 chronic kidney disease, or unspecified chronic kidney disease; E11.22 Type 2 diabetes mellitus with diabetic chronic kidney disease; T45.1X5A Adverse effect of antineoplastic and immunosuppressive drugs, initial encounter; Z94.0 Kidney transplant status; Z68.22 Body mass index [BMI] 22.0-22.9, adult; Z82.49 Family history of ischemic heart disease and other diseases of the circulatory system; Z83.3 Family history of diabetes mellitus; Z79.899 Other long term (current) drug therapy; Z86.73 Personal history of transient ischemic attack (TIA), and cerebral infarction without residual deficits
CPT/HCPCS: 36415; 36514; 80053; 80197; 81001; 82330; 82570; 82962; 83735; 84100; 84156; 85025; G0378; J1815; J7507; P9045; J0610; J7512; J7517

== ENCOUNTER 2018-05-15 06:06 | Day surgery (SDC) | payer MEDICARE ==
[~2018-05-15] VITALS: Ht 177.8 cm; Wt 69.4 kg
[2018-05-15 06:48] VITALS: BP 134/81
[2018-05-15] MEDS ORDERED: LIDOCAINE-MPF 1%, 5ML ONE (07:49)
[2018-05-15 08:09] LABS: INTERNATIONAL NORMALIZED RATIO 1.04 (0.93-1.1); PROTHROMBIN TIME 10.9 Seconds (9.6-11.5)
[2018-05-15] MEDS ORDERED: NALOXONE 1 MG/ML, 2ML ONE (08:19)
[2018-05-15] MEDS ORDERED: FENTANYL PF 100 MCG/2ML ONE (08:19)
[2018-05-15] MEDS ORDERED: FLUMAZENIL 0.1 MG/1 ML, 5ML ONE (08:19)
[2018-05-15] MEDS ORDERED: MIDAZOLAM 1 MG/ML, 5ML ONE (08:19)
== END 2018-05-15 10:47 | disposition home or self-care (01) ==
LOC: OUT 06:06
PROVIDERS: ATTEND Anesthesiology
DX: N04.9 Nephrotic syndrome with unspecified morphologic changes (principal); N19 Unspecified kidney failure; Z94.0 Kidney transplant status
CPT/HCPCS: 36415; 50200; 77012; 85610; 88300; 99156; 99157; J2250; J3010; J2310